=== PATIENT | male | born 1950 | race Two or more races ===

== ENCOUNTER 2019-08-20 16:39 | Inpatient (IN) | payer MEDICARE, OTHER ==
[~2019-08-20] VITALS: Ht 165.1 cm; Wt 84.8 kg
[2019-08-20] MEDS ORDERED: SIMETHICONE180 MG PO (16:50)
[2019-08-20] MEDS ORDERED: ZUPLENZ4 M1 ORAL (16:50)
[2019-08-20 17:06] VITALS: BP 121/68
[2019-08-20] MEDS ORDERED: Morphine Sulfate 4mg/ml Inj (IV USE ONLY) IVP ONE ×2 (17:45→22:15)
[2019-08-20 17:47] LABS: HEMATOCRIT 43.1 % (42.0-52.0); HEMOGLOBIN 14.1 G/DL (14.2-18.0); MEAN CORPUSCULAR VOLUME 92 FL (80-99); PLATELET COUNT 202 K/UL (150-450); RED CELL DISTRIBUTION WIDTH 12.6 % (11.6-14.8); WHITE BLOOD COUNT 13.2 K/UL (4.8-10.8)
[2019-08-20 17:48] LABS: APPEARANCE,URINE SLIGHTLY CLOUDY; BILIRUBIN, URINE 2+ (NEGATIVE); GLUCOSE, URINE (UA) NEGATIVE (NEGATIVE); KETONES,URINE 1+ (NEGATIVE); LEUKOCYTE ESTERASE ,URINE 1+ (NEGATIVE); NITRITE,URINE NEGATIVE (NEGATIVE); PH,URINE 5 (4.5-8.0); PROTEIN,URINE 2+ (NEGATIVE); UROBILINOGEN,URINE 4 MG/DL (0.0-1.0)
[2019-08-20 17:53] LABS: COLOR,URINE YELLOW
[2019-08-20 18:10] LABS: ANION GAP 11 mmol/L (5-15); BLOOD UREA NITROGEN 19 mg/dL (7-18); CALCIUM 8.4 MG/DL (8.5-10.1); CARBON DIOXIDE 25 MMOL/L (21-32); CHLORIDE 102 MMOL/L (98-107); CREATININE 1.1 MG/DL (0.55-1.30); POTASSIUM 3.7 MMOL/L (3.5-5.1); SODIUM 138 MMOL/L (136-145)
--- NOTE | 2019-08-20 18:22 | Diagnostic Imaging Report ---
EXAM: US Abdomen Complete CLINICAL HISTORY: PAIN TECHNIQUE: Real-time ultrasound of the abdomen with image documentation. COMPARISON: No relevant prior studies available. FINDINGS: Liver: Unremarkable. Gallbladder: Distended gallbladder. No definite shadowing cholelithiasis. Mildly prominent 4 mm gallbladder wall. Possible small pericholecystic fluid. Correlate clinically for cholecystitis. Common bile duct: CBD 6 mm. Pancreas: Pancreas obscured. Kidneys: No hydronephrosis. Spleen: Unremarkable. Aorta: Unremarkable as visualized. Inferior vena cava: Unremarkable as visualized. IMPRESSION: Distended gallbladder. No definite shadowing cholelithiasis. Mildly prominent 4 mm gallbladder wall. Possible small pericholecystic fluid. Correlate clinically for cholecystitis.
[2019-08-20 18:23] LABS: ALANINE AMINOTRANSFERASE 132 U/L (12-78); ALBUMIN 3.3 G/DL (3.4-5.0); ALBUMIN/GLOBULIN RATIO 0.9 (1.0-2.7); ALKALINE PHOSPHATASE 91 U/L (46-116); ASPARTATE AMINO TRANSFERASE 95 U/L (15-37); BILIRUBIN,TOTAL 2.3 MG/DL (0.2-1.0)
[2019-08-20 18:30] LABS: BILIRUBIN,DIRECT 1.1 MG/DL (0.0-0.3)
[2019-08-20] MEDS ORDERED: cefTRIAXone 1 GM in NS 55 ML IVPB ONE (18:30)
[2019-08-20 19:10] VITALS: BP 123/68
--- NOTE | 2019-08-20 19:29 | Emergency Room Report ---
History of Present Illness General Chief Complaint: Abdominal Pain Source: Patient (Jayla Horton) Present Illness HPI 69-year-old male presents to the emergency department complaining of 8 out of 10 severity right upper quadrant abdominal pain with associated nausea and vomiting x2 days. Patient reports that he had similar symptoms approximately a week ago and was evaluated by his primary care doctor who told him that he had gallstones. Patient denies fevers or chills. He denies blood in the vomit he denies diarrhea or constipation. Patient denies black tarry stools. Patient reports he has had no appetite. He reports that his primary care provider prescribed him some unknown medications that have not been helping. Pt. reports pain as constant in nature and exacerbated with palpation of the epigastric area or right upper quadrant of his abdomen. (Jayla Horton) Allergies: Coded Allergies: No Known Allergies (Unverified , 08/20/19) COVID-19 Screening Contact w/high risk pt: No Recent Travel to affected area: No Experienced COVID-19 symptoms?: No (Jayla Horton) Patient History Past Medical History: see triage record Past Surgical History: none Pertinent Family History: none Reviewed Nursing Documentation: PMH: Agreed; PSxH: Agreed (Jayla Horton) Nursing Documentation-PMH Past Medical History: No Stated History (Jayla Horton) Review of Systems All Other Systems: negative except mentioned in HPI (Jayla Horton) Physical Exam Vital Signs Date Time Temp Pulse Resp B/P (MAP) Pulse Ox O2 Delivery O2 Flow Rate FiO2 08/20/19 16:45 99.1 85 18 120/77 (91) 93 Room Air Sp02 EP Interpretation: reviewed, normal General Appearance: no apparent distress, alert, GCS 15, non-toxic Head: normocephalic, atraumatic Eyes: bilateral eye normal inspection, bilateral eye PERRL ENT: hearing grossly normal, normal voice Neck: full range of motion Respiratory: chest non-tender, lungs clear, normal breath sounds, speaking full sentences Cardiovascular #1: regular rate, rhythm Gastrointestinal: normal bowel sounds, soft, non-distended, no guarding, tenderness - TTP to t RUQ and epigastric area, abdomen is soft. Rectal: deferred Genitourinary: normal inspection, no CVA tenderness Musculoskeletal: back normal, normal range of motion, gait/station normal, non- tender Neurologic: alert, motor strength/tone normal, oriented x3, sensory intact, responsive, speech normal Psychiatric: judgement/insight normal Skin: normal color (Jayla Horton) Medical Decision Making PA Attestation Dr. Smith is my supervising Physician whom patient management has been discussed with. (Jayla Horton) Diagnostic Impression: Primary Impression: Cholecystitis Additional Impression: UTI (urinary tract infection) Qualified Codes: N30.01 - Acute cystitis with hematuria ER Course 69-year-old male presents to the emergency department complaining of 8 out of 10 severity right upper quadrant abdominal pain with associated nausea and vomiting x2 days. Patient reports that he had similar symptoms approximately a week ago and was evaluated by his primary care doctor who told him that he had gallstones. Patient denies fevers or chills. He denies blood in the vomit he denies diarrhea or constipation. Patient denies black tarry stools. Patient reports he has had no appetite. He reports that his primary care provider prescribed him some unknown medications that have not been helping. Pt. reports pain as constant in nature and exacerbated with palpation of the epigastric area or right upper quadrant of his abdomen. Ddx considered but are not limited to Diverticulitis, acute appy, diarrhea,UC, PUD, GE, pancreatitis, gallstone Vital signs: are WNL, pt. is afebrile H&PE are most consistent with possible gallstone vs. cholecystitis ORDERS: CBC: leukocytosis 13.2 -CMP: Elevated direct bilirubin of 1.1 and total bilirubin of 2.3 -lipase: WNL -UA: RBC's, blood and many bacteria with WBC's - c/w UTI -US Abdomen: correlate clinically with cholecystitis. ED INTERVENTIONS: -- 1000NS, -- zofran 4mg. - Rocephin IV -MOrphine 4mg IV DISPOSITION: at this time pt. will be admitted for cholecystitis Pt. signed out to attending physician awaiting admission. Labs Test 08/20/19 17:30 White Blood Count 13.2 K/UL (4.8-10.8) Red Blood Count 4.70 M/UL (4.70-6.10) Hemoglobin 14.1 G/DL (14.2-18.0) Hematocrit 43.1 % (42.0-52.0) Mean Corpuscular Volume 92 FL (80-99) Mean Corpuscular Hemoglobin 29.9 PG (27.0-31.0) Mean Corpuscular Hemoglobin Concent 32.7 G/DL (32.0-36.0) Red Cell Distribution Width 12.6 % (11.6-14.8) Platelet Count 202 K/UL (150-450) Mean Platelet Volume 7.2 FL (6.5-10.1) Neutrophils (%) (Auto) 88.0 % (45.0-75.0) Lymphocytes (%) (Auto) 8.0 % (20.0-45.0) Monocytes (%) (Auto) 4.0 % (1.0-10.0) Eosinophils (%) (Auto) % (0.0-3.0) Basophils (%) (Auto) % (0.0-2.0) Urine Color Yellow Urine Appearance Slightly cloudy Urine pH 5 (4.5-8.0) Urine Specific [place] 1.020 (1.005-1.035) Urine Protein 2+ (NEGATIVE) Urine Glucose (UA) Negative (NEGATIVE) Urine Ketones 1+ (NEGATIVE) Urine Blood 2+ (NEGATIVE) Urine Nitrite Negative (NEGATIVE) Urine Bilirubin 2+ (NEGATIVE) Urine Ictotest Negative (NEGATIVE) Urine Urobilinogen 4 MG/DL (0.0-1.0) Urine Leukocyte Esterase 1+ (NEGATIVE) Urine RBC 2-4 /HPF (0 - 0) Urine WBC 10-15 /HPF (0 - 0) Urine Squamous Epithelial Cells Few /LPF (NONE/OCC) Urine Amorphous Sediment Moderate /LPF (NONE) Urine Bacteria Many /HPF (NONE) Urine Mucus Few /LPF (NONE/OCC) Sodium Level 138 MMOL/L (136-145) Potassium Level 3.7 MMOL/L (3.5-5.1) Chloride Level 102 MMOL/L (98-107) Carbon Dioxide Level 25 MMOL/L (21-32) Anion Gap 11 mmol/L (5-15) Blood Urea Nitrogen 19 mg/dL (7-18) Creatinine 1.1 MG/DL (0.55-1.30) Estimat Glomerular Filtration Rate > 60 mL/min (>60) Glucose Level 142 MG/DL (74-106) Calcium Level 8.4 MG/DL (8.5-10.1) Total Bilirubin 2.3 MG/DL (0.2-1.0) Direct Bilirubin 1.1 MG/DL (0.0-0.3) Aspartate Amino Transf (AST/SGOT) 95 U/L (15-37) Alanine Aminotransferase (ALT/SGPT) 132 U/L (12-78) Alkaline Phosphatase 91 U/L (46-116) Total Protein 7.1 G/DL (6.4-8.2) Albumin 3.3 G/DL (3.4-5.0) Globulin 3.8 g/dL Albumin/Globulin Ratio 0.9 (1.0-2.7) Lipase 82 U/L (73-393) (Jayla Horton) ER Course Presented for increased right upper quadrant pain. Patient was noted to have previous history of gallstones on ultrasound. Ultrasound imaging read by radiology showed distended gallbladder without definite shadowing and prominent gallbladder wall approximately 4 mm thick with possible jourdan-cholecystolic fluid.Patient was admitted for further evaluation and treatment of cholecystitis. Labs Test 08/20/19 17:30 White Blood Count 13.2 K/UL (4.8-10.8) Red Blood Count 4.70 M/UL (4.70-6.10) Hemoglobin 14.1 G/DL (14.2-18.0) Hematocrit 43.1 % (42.0-52.0) Mean Corpuscular Volume 92 FL (80-99) Mean Corpuscular Hemoglobin 29.9 PG (27.0-31.0) Mean Corpuscular Hemoglobin Concent 32.7 G/DL (32.0-36.0) Red Cell Distribution Width 12.6 % (11.6-14.8) Platelet Count 202 K/UL (150-450) Mean Platelet Volume 7.2 FL (6.5-10.1) Neutrophils (%) (Auto) 88.0 % (45.0-75.0) Lymphocytes (%) (Auto) 8.0 % (20.0-45.0) Monocytes (%) (Auto) 4.0 % (1.0-10.0) Eosinophils (%) (Auto) % (0.0-3.0) Basophils (%) (Auto) % (0.0-2.0) Urine Color Yellow Urine Appearance Slightly cloudy Urine pH 5 (4.5-8.0) Urine Specific [place] 1.020 (1.005-1.035) Urine Protein 2+ (NEGATIVE) Urine Glucose (UA) Negative (NEGATIVE) Urine Ketones 1+ (NEGATIVE) Urine Blood 2+ (NEGATIVE) Urine Nitrite Negative (NEGATIVE) Urine Bilirubin 2+ (NEGATIVE) Urine Ictotest Negative (NEGATIVE) Urine Urobilinogen 4 MG/DL (0.0-1.0) Urine Leukocyte Esterase 1+ (NEGATIVE) Urine RBC 2-4 /HPF (0 - 0) Urine WBC 10-15 /HPF (0 - 0) Urine Squamous Epithelial Cells Few /LPF (NONE/OCC) Urine Amorphous Sediment Moderate /LPF (NONE) Urine Bacteria Many /HPF (NONE) Urine Mucus Few /LPF (NONE/OCC) Sodium Level 138 MMOL/L (136-145) Potassium Level 3.7 MMOL/L (3.5-5.1) Chloride Level 102 MMOL/L (98-107) Carbon Dioxide Level 25 MMOL/L (21-32) Anion Gap 11 mmol/L (5-15) Blood Urea Nitrogen 19 mg/dL (7-18) Creatinine 1.1 MG/DL (0.55-1.30) Estimat Glomerular Filtration Rate > 60 mL/min (>60) Glucose Level 142 MG/DL (74-106) Calcium Level 8.4 MG/DL (8.5-10.1) Total Bilirubin 2.3 MG/DL (0.2-1.0) Direct Bilirubin 1.1 MG/DL (0.0-0.3) Aspartate Amino Transf (AST/SGOT) 95 U/L (15-37) Alanine Aminotransferase (ALT/SGPT) 132 U/L (12-78) Alkaline Phosphatase 91 U/L (46-116) Total Protein 7.1 G/DL (6.4-8.2) Albumin 3.3 G/DL (3.4-5.0) Globulin 3.8 g/dL Albumin/Globulin Ratio 0.9 (1.0-2.7) Lipase 82 U/L (73-393) (Willis Smith MD) CT/MRI/US Diagnostic Results CT/MRI/US Diagnostic Results : Imaging Test Ordered: US ABDOMEN Impression " 4 mm thickening of the gallbladder wall as well as pericholecystic fluid-- correlate clinically for cholecystitis" . Per official radiology report- Please see report for specific details. (Jayla Horton) Last Vital Signs Date Time Temp Pulse Resp B/P (MAP) Pulse Ox O2 Delivery O2 Flow Rate FiO2 08/20/19 19:10 98.9 78 22 123/68 99 Room Air (Jayla Horton) Status: unchanged (Willis Smith MD) Disposition: ADMITTED INPATIENT Condition: Serious Referrals: NON PHYSICIAN (PCP) Jayla Horton Aug 20, 2019 19:29 Willis Smith MD Aug 20, 2019 20:01
[2019-08-20 20:30] LABS: INR 1.1 (0.9-1.1)
[2019-08-20 21:20] VITALS: BP 118/75
[2019-08-20] MEDS ORDERED: OMEPRAZOLE40 M1 ORAL (23:31)
[2019-08-20] MEDS ORDERED: LIPITOR80 MG ORAL (23:31)
[2019-08-20] MEDS ORDERED: MONTELUKAST SOD10 MG ORAL (23:31)
[2019-08-20] MEDS ORDERED: PROBIOTIC1 EAC5 PO (23:31)
[2019-08-21 00:10] VITALS: BP 129/71
[2019-08-21] MEDS ORDERED: Morphine Sulfate 2mg/ml Inj(IV/IM USE ONLY) IVP PRN (02:45)
[2019-08-21] MEDS ORDERED: Morphine Sulfate 4mg/ml Inj (IV USE ONLY) IVP PRN (02:45)
[2019-08-21 04:00] VITALS: BP 117/71
[2019-08-21] MEDS: Piperacillin/Tazobactam 3.375 GM in NS 110 ML IVPB SCH ×3 (05:28→22:46)
[2019-08-21 08:00] VITALS: BP 122/75
[2019-08-21] MEDS: Montelukast 10mg tablet ORAL SCH (08:50)
[2019-08-21] MEDS: Lactobacillus-GG tablet ORAL SCH (08:50)
[2019-08-21 10:26] LABS: HEMATOCRIT 41.3 % (42.0-52.0); HEMOGLOBIN 14.6 G/DL (14.2-18.0); MEAN CORPUSCULAR VOLUME 88 FL (80-99); PLATELET COUNT 181 K/UL (150-450); RED BLOOD COUNT 4.68 M/UL (4.70-6.10); RED CELL DISTRIBUTION WIDTH 12.2 % (11.6-14.8); WHITE BLOOD COUNT 14.3 K/UL (4.8-10.8)
[2019-08-21 11:56] LABS: ANION GAP 10 mmol/L (5-15); BLOOD UREA NITROGEN 17 mg/dL (7-18); CALCIUM 8.3 MG/DL (8.5-10.1); CARBON DIOXIDE 25 MMOL/L (21-32); CHLORIDE 106 MMOL/L (98-107); CREATININE 1.1 MG/DL (0.55-1.30); POTASSIUM 4.4 MMOL/L (3.5-5.1); SODIUM 141 MMOL/L (136-145)
[2019-08-21 12:00] VITALS: BP 122/72
--- NOTE | 2019-08-21 13:42 | Consultation ---
History of Present Illness General Date patient seen: Aug 21, 2019 Reason for Hospitalization: Abdominal Pain Present Illness HPI This is a very pleasant 69-year-old male presented to the emergency department at [facility] complaining of 8 out of 10 severity right upper quadrant abdominal pain with associated nausea and vomiting x2 days. Patient reports that he had similar symptoms approximately a week ago and was evaluated by his primary care doctor who told him that he had gallstones. Patient denies fevers or chills. He denies blood in the vomit he denies diarrhea or constipation. Patient denies black tarry stools. Patient reports he has had no appetite. He reports that his primary care provider prescribed him some unknown medications that have not been helping. Pt. reports pain as constant in nature and exacerbated with palpation of the epigastric area or right upper quadrant of his abdomen. Surgery called to evaluate and assist with care. patient seen, chart reviewed, patient examined. Allergies: Coded Allergies: No Known Allergies (Unverified , 08/20/19) COVID-19 Screening Contact w/high risk pt: No Recent Travel to affected area: No Experienced COVID-19 symptoms?: No Medication History Scheduled Atorvastatin (Lipitor), 10 MG ORAL BEDTIME, (Reported) Montelukast Sodium* (Montelukast Sodium*), 10 MG ORAL DAILY, (Reported) Omeprazole (Omeprazole), 40 MG ORAL DAILY, (Reported) Ondansetron (Zuplenz), 4 MG ORAL Q8HR, (Reported) Simethicone (Simethicone), 180 MG PO TID, (Reported) Miscellaneous Medications Lactobacillus Combo No.11 (Probiotic), 1 EACH PO, (Reported) Patient History Limited by: medical condition History Provided By: Patient, Medical Record, PMD Healthcare decision maker Resuscitation status Full Code Advanced Directive on File Past Medical/Surgical History Past Medical/Surgical History: (1) UTI (urinary tract infection) (2) Cholecystitis Review of Systems Review of Symptoms General ROS: no weight loss or fever Psychological ROS: no depression or mood changes, no memory loss Ophthalmic ROS: no visual changes or eye irritation ENT ROS: no nasal congestion, hearing loss, dizziness Allergy and Immunology ROS: no allergic symptoms or urticaria Hematological and Lymphatic ROS: no swollen glands, unusual bleeding or bruising Endocrine ROS: no polyuria, polydipsia, weight changes, temperature intolerance Respiratory ROS: no cough, shortness of breath, or wheezing Cardiovascular ROS: no chest pain or dyspnea on exertion Gastrointestinal ROS: abdominal pain, bright red blood in stool. Musculoskeletal ROS: no myalgias or arthralgias Neurological ROS: no TIA or stroke symptoms Dermatological ROS: no new or changing skin lesions, rashes or pruritis Physical Exam Physical Exam General appearance: alert, cooperative, no distress, appears stated age Head: Normocephalic, without obvious abnormality, atraumatic Eyes: conjunctivae/corneas clear. PERRL, EOM's intact. Fundi benign Throat: Lips, mucosa, and tongue normal. Teeth and gums normal Neck: supple, symmetrical, trachea midline, no adenopathy, thyroid: not enlarged, symmetric, no tenderness/mass/nodules, no carotid bruit and no JVD Lungs: clear to auscultation bilaterally Heart: regular rate and rhythm, S1, S2 normal, no murmur, click, rub or gallop Abdomen: soft, tender. Bowel sounds normal. No masses, no organomegaly Extremities: extremities normal, atraumatic, no cyanosis or edema Pulses: 2+ and symmetric Skin: Skin color, texture, turgor normal. No rashes or lesions Neurologic: Grossly normal Last 24 Hour Vital Signs Date Time Temp Pulse Resp B/P (MAP) Pulse Ox O2 Delivery O2 Flow Rate FiO2 08/21/19 11:15 99.7 08/21/19 08:00 99.7 99 18 122/75 (91) 94 08/21/19 04:00 99.0 90 19 117/71 (86) 94 08/21/19 00:14 Room Air 08/21/19 00:10 98.7 84 20 129/71 (90) 96 08/20/19 23:50 98.6 84 19 111/86 97 Room Air 08/20/19 22:50 98.6 08/20/19 21:20 98.9 75 19 118/75 99 Room Air 08/20/19 19:10 98.9 78 22 123/68 99 Room Air 08/20/19 18:19 99.1 08/20/19 17:20 78 18 Room Air 08/20/19 17:06 99.1 78 18 121/68 97 Room Air 08/20/19 16:45 99.1 85 18 120/77 (91) 93 Room Air Laboratory Tests Test 08/20/19 17:30 08/21/19 09:25 White Blood Count 13.2 K/UL (4.8-10.8) H 14.3 K/UL (4.8-10.8) H Red Blood Count 4.70 M/UL (4.70-6.10) 4.68 M/UL (4.70-6.10) L Hemoglobin 14.1 G/DL (14.2-18.0) L 14.6 G/DL (14.2-18.0) Hematocrit 43.1 % (42.0-52.0) 41.3 % (42.0-52.0) L Mean Corpuscular Volume 92 FL (80-99) 88 FL (80-99) Mean Corpuscular Hemoglobin 29.9 PG (27.0-31.0) 31.3 PG (27.0-31.0) H Mean Corpuscular Hemoglobin Concent 32.7 G/DL (32.0-36.0) 35.5 G/DL (32.0-36.0) Red Cell Distribution Width 12.6 % (11.6-14.8) 12.2 % (11.6-14.8) Platelet Count 202 K/UL (150-450) 181 K/UL (150-450) Mean Platelet Volume 7.2 FL (6.5-10.1) 5.5 FL (6.5-10.1) L Neutrophils (%) (Auto) 88.0 % (45.0-75.0) H % (45.0-75.0) Lymphocytes (%) (Auto) 8.0 % (20.0-45.0) L % (20.0-45.0) Monocytes (%) (Auto) 4.0 % (1.0-10.0) % (1.0-10.0) Eosinophils (%) (Auto) % (0.0-3.0) % (0.0-3.0) Basophils (%) (Auto) % (0.0-2.0) % (0.0-2.0) Prothrombin Time 11.3 SEC (9.30-11.50) Prothromb Time International Ratio 1.1 (0.9-1.1) Activated Partial Thromboplast Time 29 SEC (23-33) Urine Color Yellow Urine Appearance Slightly cloudy Urine pH 5 (4.5-8.0) Urine Specific [place] 1.020 (1.005-1.035) Urine Protein 2+ (NEGATIVE) H Urine Glucose (UA) Negative (NEGATIVE) Urine Ketones 1+ (NEGATIVE) H Urine Blood 2+ (NEGATIVE) H Urine Nitrite Negative (NEGATIVE) Urine Bilirubin 2+ (NEGATIVE) H Urine Ictotest Negative (NEGATIVE) Urine Urobilinogen 4 MG/DL (0.0-1.0) H Urine Leukocyte Esterase 1+ (NEGATIVE) H Urine RBC 2-4 /HPF (0 - 0) H Urine WBC 10-15 /HPF (0 - 0) H Urine Squamous Epithelial Cells Few /LPF (NONE/OCC) Urine Amorphous Sediment Moderate /LPF (NONE) H Urine Bacteria Many /HPF (NONE) H Urine Mucus Few /LPF (NONE/OCC) H Sodium Level 138 MMOL/L (136-145) 141 MMOL/L (136-145) Potassium Level 3.7 MMOL/L (3.5-5.1) 4.4 MMOL/L (3.5-5.1) Chloride Level 102 MMOL/L (98-107) 106 MMOL/L (98-107) Carbon Dioxide Level 25 MMOL/L (21-32) 25 MMOL/L (21-32) Anion Gap 11 mmol/L (5-15) 10 mmol/L (5-15) Blood Urea Nitrogen 19 mg/dL (7-18) H 17 mg/dL (7-18) Creatinine 1.1 MG/DL (0.55-1.30) 1.1 MG/DL (0.55-1.30) Estimat Glomerular Filtration Rate > 60 mL/min (>60) > 60 mL/min (>60) Glucose Level 142 MG/DL (74-106) H 107 MG/DL (74-106) H Calcium Level 8.4 MG/DL (8.5-10.1) L 8.3 MG/DL (8.5-10.1) L Total Bilirubin 2.3 MG/DL (0.2-1.0) H Direct Bilirubin 1.1 MG/DL (0.0-0.3) H Aspartate Amino Transf (AST/SGOT) 95 U/L (15-37) H Alanine Aminotransferase (ALT/SGPT) 132 U/L (12-78) H Alkaline Phosphatase 91 U/L (46-116) Total Protein 7.1 G/DL (6.4-8.2) Albumin 3.3 G/DL (3.4-5.0) L Globulin 3.8 g/dL Albumin/Globulin Ratio 0.9 (1.0-2.7) L Lipase 82 U/L (73-393) Differential Total Cells Counted 100 Neutrophils % (Manual) 89 % (45-75) H Lymphocytes % (Manual) 6 % (20-45) L Monocytes % (Manual) 5 % (1-10) Eosinophils % (Manual) 0 % (0-3) Basophils % (Manual) 0 % (0-2) Band Neutrophils 0 % (0-8) Platelet Estimate Adequate Platelet Morphology Normal Red Blood Cell Morphology Normal Microbiology Date/Time Source Procedure Growth Status 08/20/19 17:30 Urine,Clean Catch Urine Culture - Preliminary NO GROWTH Resulted Height (Feet): 5 Height (Inches): 5.00 Weight (Pounds): 184 Medications Current Medications Medications (Trade) Dose Ordered Sig/Belen Route PRN Reason Start Time Stop Time Status Last Admin Dose Admin Acetaminophen (Tylenol) 650 mg Q4H PRN ORAL Mild Pain (Pain Scale 1-3) 08/21/19 02:45 09/20/19 02:44 08/21/19 10:45 Al Hydroxide/Mg Hydroxide (Mylanta) 30 ml Q4H PRN ORAL Indigestion/heartburn 08/21/19 02:45 09/20/19 02:44 Atorvastatin Calcium (Lipitor) 10 mg BEDTIME ORAL 08/21/19 21:00 11/19/19 20:59 Lactobacillus Acidophilus (Culturelle) 1 tab DAILY ORAL 08/21/19 09:00 09/20/19 08:59 08/21/19 08:50 Montelukast Sodium (Singulair) 10 mg DAILY ORAL 08/21/19 09:00 11/19/19 08:59 08/21/19 08:50 Morphine Sulfate (Morphine Sulfate) 2 mg Q3H PRN IVP For Pain 08/21/19 05:45 08/28/19 02:44 Morphine Sulfate (Morphine Sulfate) 4 mg Q3H PRN IVP Severe Pain (Pain Scale 7-10) 08/21/19 02:45 08/28/19 02:44 Ondansetron HCl (Zofran) 4 mg Q6H PRN IVP Nausea & Vomiting 08/21/19 02:45 09/20/19 02:44 Pantoprazole (Protonix) 40 mg DAILY ORAL 08/21/19 09:00 09/20/19 08:59 08/21/19 08:50 Piperacillin Sod/ Tazobactam Sod 3.375 gm/Sodium Chloride 110 ml @ 27.5 mls/hr Q8H IVPB 08/21/19 06:00 08/28/19 05:59 08/21/19 05:28 Simethicone (Mylicon) 160 mg TID PO 08/21/19 13:00 11/19/19 12:59 Sodium Chloride 1,000 ml @ 100 mls/hr Q10H IV 08/21/19 02:45 09/20/19 02:44 08/21/19 03:06 Assessment/Plan Problem List: (1) Cholecystitis Assessment & Plan: Case discussed with GI MRCP reviewed with radiologist cbd stone stable afebrile, HD Stable labs noted npo iv fluids iv abx AM labs will consider ERCP then cholecystectomy thank you will follow with recs Liver: Unremarkable. Gallbladder: Distended gallbladder. No definite shadowing cholelithiasis. Mildly prominent 4 mm gallbladder wall. Possible small pericholecystic fluid. Correlate clinically for cholecystitis. Common bile duct: CBD 6 mm. Pancreas: Pancreas obscured. Kidneys: No hydronephrosis. Spleen: Unremarkable. Aorta: Unremarkable as visualized. Inferior vena cava: Unremarkable as visualized. IMPRESSION: Distended gallbladder. No definite shadowing cholelithiasis. Mildly prominent 4 mm gallbladder wall. Possible small pericholecystic fluid. Correlate clinically for cholecystitis. the gallbladder wall is somewhat edematous and the gallbladder is distended. The fat saturated images suggests some infiltration of the pericholecystic fat as well as a small amount of fluid adjacent to the tip of the liver. No filling defects to suggest gallstones are evident in the gallbladder lumen. However, there is a possible 8 mm filling defect in the gallbladder neck. In addition, there is a 7 mm diameter filling defect in the downstream common bile duct. The common bile duct measures 7 mm in diameter. There is no intrahepatic biliary ductal dilatation. The liver, pancreas, spleen, adrenals, kidneys are unremarkable. The prostate is enlarged. There are trace bilateral pleural effusions. Impression: Positive for choledocholithiasis. This results in mild biliary ductal dilatation. Suspect gallbladder neck stone. Mild gallbladder wall edema in some infiltration of the pericholecystic fat raises possibility of acute cholecystitis. Consider hepatobiliary nuclear scan for confirmation if there is high clinical suspicion. Evidence of trace free intraperitoneal fluid Trace bilateral pleural effusions ICD Codes: K81.9 - Cholecystitis, unspecified SNOMED: [id number] Lopez Zuniga Aug 21, 2019 13:42
[2019-08-21] MEDS: SIMETHICONE 80 MG PO SCH ×2 (14:50→17:11)
--- NOTE | 2019-08-21 15:30 | History and Physical Report ---
DATE OF ADMISSION: 08/20/2019 REASON FOR ADMISSION: Cholecystitis. HISTORY OF PRESENT ILLNESS: This is a 69-year-old male, presents with significant right upper quadrant pain, associated nausea, vomiting. The patient has had prior symptoms recently and history of gallstones. No fevers or chills. The patient denies any hematemesis, hematochezia. The patient is evaluated and noted to have probable cholecystitis and Surgery was called. PAST MEDICAL HISTORY: Notable for gallstones. MEDICATIONS: Reviewed. ALLERGIES: Reviewed. REVIEW OF SYSTEMS: Otherwise negative with the exception of the above. PHYSICAL EXAMINATION: GENERAL: A well-developed male, overall comfortable, in mild pain overall. VITAL SIGNS: Reviewed and otherwise stable. HEENT: Negative. NECK: Supple. LUNGS: Fairly clear. CARDIAC: S1, S2. Regular rate and rhythm. ABDOMEN: Right upper quadrant tenderness. EXTREMITIES: No cyanosis, clubbing, or edema. NEUROLOGIC: Grossly nonfocal. LABORATORY DATA: Reviewed. White count 13.2. Liver enzymes somewhat elevated, albumin 3.3, BUN 19. IMPRESSION: Transaminitis, cholecystitis, leukocytosis, distended gallbladder, gallstones. RECOMMENDATIONS: Supportive care. Empiric antibiotics. Pain control. NPO for now. Surgical followup and possible cholecystectomy. Monitor labs. Monitor cultures and discharge once stable. Aaron Cordova M.D. DR: MILAN JOB#: [id number] CC:
[2019-08-21] MEDS ORDERED: NS 500ML ONE (15:40)
[2019-08-21] MEDS ORDERED: Tubing IV Secondary IV ONE (15:40)
[2019-08-21 16:00] VITALS: BP 126/71
--- NOTE | 2019-08-21 17:05 | Diagnostic Imaging Report ---
Indication: Right upper quadrant abdominal pain Technique: Coronal and axial single shot fast spin-echo breath-hold, axial T2 FRFSE, 2-D thick slab MRCP, AXIAL 2-D FIESTA fat saturated, axial 3-D dual echo breath-hold, water weighted axial LAVA FLEX, revealed 3-D MRCP images were obtained of the abdomen. MIP reconstructions were generated of the bile ducts Comparison: Abdominal ultrasound 08/20/2019 Findings: As reported on prior sonogram, the gallbladder wall is somewhat edematous and the gallbladder is distended. The fat saturated images suggests some infiltration of the pericholecystic fat as well as a small amount of fluid adjacent to the tip of the liver. No filling defects to suggest gallstones are evident in the gallbladder lumen. However, there is a possible 8 mm filling defect in the gallbladder neck. In addition, there is a 7 mm diameter filling defect in the downstream common bile duct. The common bile duct measures 7 mm in diameter. There is no intrahepatic biliary ductal dilatation. The liver, pancreas, spleen, adrenals, kidneys are unremarkable. The prostate is enlarged. There are trace bilateral pleural effusions. Impression: Positive for choledocholithiasis. This results in mild biliary ductal dilatation. Suspect gallbladder neck stone. Mild gallbladder wall edema in some infiltration of the pericholecystic fat raises possibility of acute cholecystitis. Consider hepatobiliary nuclear scan for confirmation if there is high clinical suspicion. Evidence of trace free intraperitoneal fluid Trace bilateral pleural effusions Enlarged prostate
[2019-08-21 20:00] VITALS: BP 118/72
[2019-08-21] MEDS: Morphine Sulfate 2mg/ml Inj(IV/IM USE ONLY) IVP PRN (20:32)
[2019-08-22] VITALS: BP 121/69
[2019-08-22 04:00] VITALS: BP 126/73
[2019-08-22] MEDS: Piperacillin/Tazobactam 3.375 GM in NS 110 ML IVPB SCH ×3 (05:26→21:20)
[2019-08-22 06:27] LABS: BASOPHILS % (AUTO) 0.3 % (0.0-2.0); EOSINOPHILS % (AUTO) 0.1 % (0.0-3.0); HEMATOCRIT 41.9 % (42.0-52.0); HEMOGLOBIN 14.3 G/DL (14.2-18.0); LYMPHOCYTES % (AUTO) 10.2 % (20.0-45.0); MEAN CORPUSCULAR VOLUME 89 FL (80-99); MONOCYTES % (AUTO) 5.8 % (1.0-10.0); NEUTROPHILS % (AUTO) 83.6 % (45.0-75.0); PLATELET COUNT 204 K/UL (150-450); RED BLOOD COUNT 4.69 M/UL (4.70-6.10); RED CELL DISTRIBUTION WIDTH 12.2 % (11.6-14.8); WHITE BLOOD COUNT 16.1 K/UL (4.8-10.8)
[2019-08-22 07:10] LABS: ALANINE AMINOTRANSFERASE 63 U/L (12-78); ALBUMIN 2.7 G/DL (3.4-5.0); ALBUMIN/GLOBULIN RATIO 0.6 (1.0-2.7); ALKALINE PHOSPHATASE 104 U/L (46-116); ANION GAP 9 mmol/L (5-15); ASPARTATE AMINO TRANSFERASE 31 U/L (15-37); BILIRUBIN,TOTAL 1.3 MG/DL (0.2-1.0); BLOOD UREA NITROGEN 20 mg/dL (7-18); CALCIUM 8.5 MG/DL (8.5-10.1); CARBON DIOXIDE 26 MMOL/L (21-32); CHLORIDE 105 MMOL/L (98-107); POTASSIUM 3.4 MMOL/L (3.5-5.1); SODIUM 140 MMOL/L (136-145)
[2019-08-22 07:14] LABS: BILIRUBIN,DIRECT 0.5 MG/DL (0.0-0.3)
[2019-08-22 07:43] LABS: AMYLASE 44 U/L (25-115)
[2019-08-22 08:00] VITALS: BP 115/68
[2019-08-22] MEDS: Lactobacillus-GG tablet ORAL SCH (08:51)
[2019-08-22] MEDS: Montelukast 10mg tablet ORAL SCH (08:52)
[2019-08-22] MEDS: SIMETHICONE 80 MG PO SCH ×3 (08:54→17:21)
--- NOTE | 2019-08-22 11:43 | Diagnostic Imaging Report ---
EXAM: XR Chest, 1 View CLINICAL HISTORY: F/U TECHNIQUE: Frontal view of the chest. COMPARISON: None FINDINGS: Hardware: None. Lungs/pleura: Low lung volumes. Right lower lung opacities may represent atelectasis. No pleural effusion or pneumothorax. Heart/mediastinum: Mild enlargement of the cardiac silhouette which may be accentuated by low lung volumes. Atherosclerotic calcifications in the aorta. Soft tissues: Unremarkable. Bones: No acute fracture. Upper abdomen: Normal. Other: Nonspecific linear structure projected over the supraclavicular region and upper lung on the left.. IMPRESSION: Low lung volumes. Right lower lung opacities may represent atelectasis.
[2019-08-22 12:00] VITALS: BP 119/68
--- NOTE | 2019-08-22 13:11 | GI Initial Consult Note ---
History of Present Illness General Date patient seen: Aug 22, 2019 Time patient seen: 13:10 Reason for Hospitalization: Abdominal Pain Present Illness Home Meds Reported Medications Lactobacillus Combo No.11 (PROBIOTIC) 1 Each Cap.sprink, 1 EACH PO for supplement, CAP 08/20/19 Omeprazole (OMEPRAZOLE) 40 Mg Capsule.dr, 40 MG ORAL DAILY for acid, CAP 08/20/19 Atorvastatin (Lipitor) 80 Mg Tablet, 10 MG ORAL BEDTIME for cholestrol, #30 TAB 0 Refills 08/20/19 Montelukast Sodium* (MONTELUKAST SODIUM*) 10 Mg Tablet, 10 MG ORAL DAILY for asthma, TAB 08/20/19 Ondansetron (ZUPLENZ) 4 Mg Film, 4 MG ORAL Q8HR for N/V, FILM 08/20/19 Simethicone (SIMETHICONE) 180 Mg Capsule, 180 MG PO TID for PAIN, CAP 08/20/19 Allergies: Coded Allergies: No Known Allergies (Unverified , 08/20/19) Physical Exam Vital Signs Date Time Temp Pulse Resp B/P (MAP) Pulse Ox O2 Delivery O2 Flow Rate FiO2 08/20/19 16:45 99.1 85 18 120/77 (91) 93 Room Air Labs Laboratory Tests Test 08/22/19 05:25 White Blood Count 16.1 K/UL (4.8-10.8) H Red Blood Count 4.69 M/UL (4.70-6.10) L Hemoglobin 14.3 G/DL (14.2-18.0) Hematocrit 41.9 % (42.0-52.0) L Mean Corpuscular Volume 89 FL (80-99) Mean Corpuscular Hemoglobin 30.4 PG (27.0-31.0) Mean Corpuscular Hemoglobin Concent 34.1 G/DL (32.0-36.0) Red Cell Distribution Width 12.2 % (11.6-14.8) Platelet Count 204 K/UL (150-450) Mean Platelet Volume 5.7 FL (6.5-10.1) L Neutrophils (%) (Auto) 83.6 % (45.0-75.0) H Lymphocytes (%) (Auto) 10.2 % (20.0-45.0) L Monocytes (%) (Auto) 5.8 % (1.0-10.0) Eosinophils (%) (Auto) 0.1 % (0.0-3.0) Basophils (%) (Auto) 0.3 % (0.0-2.0) Prothrombin Time 10.4 SEC (9.30-11.50) Prothromb Time International Ratio 1.0 (0.9-1.1) Activated Partial Thromboplast Time 30 SEC (23-33) Sodium Level 140 MMOL/L (136-145) Potassium Level 3.4 MMOL/L (3.5-5.1) L Chloride Level 105 MMOL/L (98-107) Carbon Dioxide Level 26 MMOL/L (21-32) Anion Gap 9 mmol/L (5-15) Blood Urea Nitrogen 20 mg/dL (7-18) H Creatinine 1.0 MG/DL (0.55-1.30) Estimat Glomerular Filtration Rate > 60 mL/min (>60) Glucose Level 92 MG/DL (74-106) Calcium Level 8.5 MG/DL (8.5-10.1) Total Bilirubin 1.3 MG/DL (0.2-1.0) H Direct Bilirubin 0.5 MG/DL (0.0-0.3) H Aspartate Amino Transf (AST/SGOT) 31 U/L (15-37) Alanine Aminotransferase (ALT/SGPT) 63 U/L (12-78) Alkaline Phosphatase 104 U/L (46-116) Total Protein 6.9 G/DL (6.4-8.2) Albumin 2.7 G/DL (3.4-5.0) L Globulin 4.2 g/dL Albumin/Globulin Ratio 0.6 (1.0-2.7) L Amylase Level 44 U/L (25-115) Lipase 164 U/L (73-393) Current Medications Current Medications Medications (Trade) Dose Ordered Sig/Belne Route PRN Reason Start Time Stop Time Status Last Admin Dose Admin Acetaminophen (Tylenol) 650 mg Q4H PRN ORAL Mild Pain (Pain Scale 1-3) 08/21/19 02:45 09/20/19 02:44 08/22/19 05:32 Al Hydroxide/Mg Hydroxide (Mylanta) 30 ml Q4H PRN ORAL Indigestion/heartburn 08/21/19 02:45 09/20/19 02:44 Atorvastatin Calcium (Lipitor) 10 mg BEDTIME ORAL 08/21/19 21:00 11/19/19 20:59 08/21/19 20:31 Lactobacillus Acidophilus (Culturelle) 1 tab DAILY ORAL 08/21/19 09:00 09/20/19 08:59 08/22/19 08:51 Montelukast Sodium (Singulair) 10 mg DAILY ORAL 08/21/19 09:00 11/19/19 08:59 08/22/19 08:52 Morphine Sulfate (Morphine Sulfate) 2 mg Q3H PRN IVP For Pain 08/21/19 05:45 08/28/19 02:44 08/21/19 20:32 Morphine Sulfate (Morphine Sulfate) 4 mg Q3H PRN IVP Severe Pain (Pain Scale 7-10) 08/21/19 02:45 08/28/19 02:44 08/22/19 07:14 Ondansetron HCl (Zofran) 4 mg Q6H PRN IVP Nausea & Vomiting 08/21/19 02:45 09/20/19 02:44 Pantoprazole (Protonix) 40 mg DAILY ORAL 08/21/19 09:00 09/20/19 08:59 08/22/19 08:51 Piperacillin Sod/ Tazobactam Sod 3.375 gm/Sodium Chloride 110 ml @ 27.5 mls/hr Q8H IVPB 08/21/19 06:00 08/28/19 05:59 08/22/19 12:45 Simethicone (Mylicon) 160 mg TID PO 08/21/19 13:00 11/19/19 12:59 08/22/19 12:45 Sodium Chloride 1,000 ml @ 100 mls/hr Q10H IV 08/21/19 02:45 09/20/19 02:44 08/22/19 08:54 Antonio Priest BI ARCHITECT Aug 22, 2019 13:11
--- NOTE | 2019-08-22 13:19 | GI Initial Consult Note ---
History of Present Illness General Date patient seen: Aug 22, 2019 Time patient seen: 13:11 Reason for Hospitalization: Abdominal Pain Referring physician: SELMA Reason for Consultation: ABDOMINAL PAIN Present Illness HPI 69-year-old male presents to the emergency department complaining of 8 out of 10 severity right upper quadrant abdominal pain with associated nausea and vomiting x2 days. Patient reports that he had similar symptoms approximately a week ago and was evaluated by his primary care doctor who told him that he had gallstones. Patient denies fevers or chills. He denies blood in the vomit he denies diarrhea or constipation. Patient denies black tarry stools. Patient reports he has had no appetite. He reports that his primary care provider prescribed him some unknown medications that have not been helping. Pt. reports pain as constant in nature and exacerbated with palpation of the epigastric area or right upper quadrant of his abdomen. GI consulted for abdominal pain. MRCP was performed noted that the gallbladder wall is somewhat edematous and had distention. It was noted that there is a 8 mm filling defect in the gallbladder neck. In addition, there was a 7 mm diameter filling defect in the downstream common bile duct. There is no intrahepatic biliary ductal dilation. Liver pancreas spleen the liver, pancreas , spleen, adrenals, kidneys were unremarkable. There were trace bilateral pleural effusions. MRI positive for choledocholithiasis which resulted in mild biliary ductal dilation. Labs reviewed; WBC 16.1, total bilirubin 1.3, no transaminitis, no elevated alkaline phosphatase, lipase within normal limits. The patient has no history of endoscopic. Patient has complaint of right upper quadrant pain exacerbated by movement. Home Meds Reported Medications Lactobacillus Combo No.11 (PROBIOTIC) 1 Each Cap.sprink, 1 EACH PO for supplement, CAP 08/20/19 Omeprazole (OMEPRAZOLE) 40 Mg Capsule.dr, 40 MG ORAL DAILY for acid, CAP 08/20/19 Atorvastatin (Lipitor) 80 Mg Tablet, 10 MG ORAL BEDTIME for cholestrol, #30 TAB 0 Refills 08/20/19 Montelukast Sodium* (MONTELUKAST SODIUM*) 10 Mg Tablet, 10 MG ORAL DAILY for asthma, TAB 08/20/19 Ondansetron (ZUPLENZ) 4 Mg Film, 4 MG ORAL Q8HR for N/V, FILM 08/20/19 Simethicone (SIMETHICONE) 180 Mg Capsule, 180 MG PO TID for PAIN, CAP 08/20/19 Med list reviewed/reconciled: Yes Allergies: Coded Allergies: No Known Allergies (Unverified , 08/20/19) Patient History History Provided By: Patient, Medical Record PMH Narrative Past Medical History: see triage record Past Surgical History: none Pertinent Family History: none Reviewed Nursing Documentation: PMH: Agreed; PSxH: Agreed Social History: Denies: smoking, alcohol use, drug use, other Review of Systems All Other Systems: negative except mentioned in HPI Physical Exam Vital Signs Date Time Temp Pulse Resp B/P (MAP) Pulse Ox O2 Delivery O2 Flow Rate FiO2 08/20/19 16:45 99.1 85 18 120/77 (91) 93 Room Air Sp02 EP Interpretation: reviewed, normal Labs Laboratory Tests Test 08/22/19 05:25 White Blood Count 16.1 K/UL (4.8-10.8) H Red Blood Count 4.69 M/UL (4.70-6.10) L Hemoglobin 14.3 G/DL (14.2-18.0) Hematocrit 41.9 % (42.0-52.0) L Mean Corpuscular Volume 89 FL (80-99) Mean Corpuscular Hemoglobin 30.4 PG (27.0-31.0) Mean Corpuscular Hemoglobin Concent 34.1 G/DL (32.0-36.0) Red Cell Distribution Width 12.2 % (11.6-14.8) Platelet Count 204 K/UL (150-450) Mean Platelet Volume 5.7 FL (6.5-10.1) L Neutrophils (%) (Auto) 83.6 % (45.0-75.0) H Lymphocytes (%) (Auto) 10.2 % (20.0-45.0) L Monocytes (%) (Auto) 5.8 % (1.0-10.0) Eosinophils (%) (Auto) 0.1 % (0.0-3.0) Basophils (%) (Auto) 0.3 % (0.0-2.0) Prothrombin Time 10.4 SEC (9.30-11.50) Prothromb Time International Ratio 1.0 (0.9-1.1) Activated Partial Thromboplast Time 30 SEC (23-33) Sodium Level 140 MMOL/L (136-145) Potassium Level 3.4 MMOL/L (3.5-5.1) L Chloride Level 105 MMOL/L (98-107) Carbon Dioxide Level 26 MMOL/L (21-32) Anion Gap 9 mmol/L (5-15) Blood Urea Nitrogen 20 mg/dL (7-18) H Creatinine 1.0 MG/DL (0.55-1.30) Estimat Glomerular Filtration Rate > 60 mL/min (>60) Glucose Level 92 MG/DL (74-106) Calcium Level 8.5 MG/DL (8.5-10.1) Total Bilirubin 1.3 MG/DL (0.2-1.0) H Direct Bilirubin 0.5 MG/DL (0.0-0.3) H Aspartate Amino Transf (AST/SGOT) 31 U/L (15-37) Alanine Aminotransferase (ALT/SGPT) 63 U/L (12-78) Alkaline Phosphatase 104 U/L (46-116) Total Protein 6.9 G/DL (6.4-8.2) Albumin 2.7 G/DL (3.4-5.0) L Globulin 4.2 g/dL Albumin/Globulin Ratio 0.6 (1.0-2.7) L Amylase Level 44 U/L (25-115) Lipase 164 U/L (73-393) General Appearance: well appearing, no apparent distress, alert Head: normocephalic EENT: PERRL/EOMI, normal ENT inspection Neck: supple Respiratory: normal breath sounds, no respiratory distress Cardiovascular: normal rate Gastrointestinal: normal inspection, non tender, soft, normal bowel sounds, non -distended Rectal: deferred Genitourinary: deferred Musculoskeletal: normal inspection, back normal Neurologic: alert, oriented x3, responsive, normal inspection Psychiatric: normal inspection, judgement/insight normal, memory normal Skin: normal inspection, normal color, no rash, warm/dry, palpation normal, well hydrated Lymphatic: normal inspection, no adenopathy Current Medications Current Medications Medications (Trade) Dose Ordered Sig/Belen Route PRN Reason Start Time Stop Time Status Last Admin Dose Admin Acetaminophen (Tylenol) 650 mg Q4H PRN ORAL Mild Pain (Pain Scale 1-3) 08/21/19 02:45 09/20/19 02:44 08/22/19 05:32 Al Hydroxide/Mg Hydroxide (Mylanta) 30 ml Q4H PRN ORAL Indigestion/heartburn 08/21/19 02:45 09/20/19 02:44 Atorvastatin Calcium (Lipitor) 10 mg BEDTIME ORAL 08/21/19 21:00 11/19/19 20:59 08/21/19 20:31 Lactobacillus Acidophilus (Culturelle) 1 tab DAILY ORAL 08/21/19 09:00 09/20/19 08:59 08/22/19 08:51 Montelukast Sodium (Singulair) 10 mg DAILY ORAL 08/21/19 09:00 11/19/19 08:59 08/22/19 08:52 Morphine Sulfate (Morphine Sulfate) 2 mg Q3H PRN IVP For Pain 08/21/19 05:45 08/28/19 02:44 08/21/19 20:32 Morphine Sulfate (Morphine Sulfate) 4 mg Q3H PRN IVP Severe Pain (Pain Scale 7-10) 08/21/19 02:45 08/28/19 02:44 08/22/19 07:14 Ondansetron HCl (Zofran) 4 mg Q6H PRN IVP Nausea & Vomiting 08/21/19 02:45 09/20/19 02:44 Pantoprazole (Protonix) 40 mg DAILY ORAL 08/21/19 09:00 09/20/19 08:59 08/22/19 08:51 Piperacillin Sod/ Tazobactam Sod 3.375 gm/Sodium Chloride 110 ml @ 27.5 mls/hr Q8H IVPB 08/21/19 06:00 08/28/19 05:59 08/22/19 12:45 Simethicone (Mylicon) 160 mg TID PO 08/21/19 13:00 11/19/19 12:59 08/22/19 12:45 Sodium Chloride 1,000 ml @ 100 mls/hr Q10H IV 08/21/19 02:45 09/20/19 02:44 08/22/19 08:54 GI: Plan Problems: (1) Choledocholithiasis (2) Cholecystitis Plan Right upper quadrant abdominal pain most likely secondary to choledocholithiasis were versus cholecystitis. Noted on MRCP that there is a 7 mm filling defect in the common bile duct. Abdominal pain most likely due to biliary obstruction, less likely due to hepatocellular disease. - Plan for ERCP this Saturday. -Maintain n.p.o. plus IV fluids -pain mgmt -ppi -We will follow with additional recommendations post procedure Discussed with Dr. Lugo. Thank you for this patient referral, we will follow. The patient was seen and examined at bedside and all new and available data was reviewed in the patients chart. I agree with the above findings, impression and plan. (Patient seen earlier today. Signature stamp does not reflect patient encounter time.). - MD Zayda DossBanner Thunderbird Medical CenterVivian ROLL TABLE OPERATOR Aug 22, 2019 13:19
[2019-08-22 16:00] VITALS: BP 119/73
--- NOTE | 2019-08-22 17:12 | General Progress Note ---
Assessment/Plan Assessment/Plan: cholecystitis gallstones abdominal pain PLAN NPO await ERCP possible surgery iv hydration impression, plan, and exam edited and reviewed in detail care discussed with RN Subjective Allergies: Coded Allergies: No Known Allergies (Unverified , 08/20/19) Subjective care noted wants gallbladder out Objective Last 24 Hour Vital Signs Date Time Temp Pulse Resp B/P (MAP) Pulse Ox O2 Delivery O2 Flow Rate FiO2 08/22/19 16:00 98.6 70 21 119/73 (88) 95 08/22/19 12:00 100.5 70 21 119/68 (85) 08/22/19 08:00 98.8 70 20 115/68 (84) 98 08/22/19 07:44 98.1 08/22/19 07:10 Room Air 08/22/19 06:02 98.1 08/22/19 04:00 98.1 71 18 126/73 (90) 96 08/22/19 00:00 98.9 88 18 121/69 (86) 96 08/21/19 21:02 101.2 08/21/19 21:00 Room Air 08/21/19 20:00 101.2 82 18 118/72 (87) 96 Intake and Output 08/21/19 08/22/19 19:00 07:00 Intake Total 200 ml Output Total 1250 ml Balance -1050 ml Intake Oral 200 ml Output Urine Total 1250 ml # Voids 5 Laboratory Tests 08/22/19 05:25: White Blood Count 16.1H, Red Blood Count 4.69L, Hemoglobin 14.3, Hematocrit 41.9L, Mean Corpuscular Volume 89, Mean Corpuscular Hemoglobin 30.4, Mean Corpuscular Hemoglobin Concent 34.1, Red Cell Distribution Width 12.2, Platelet Count 204, Mean Platelet Volume 5.7L, Neutrophils (%) (Auto) 83.6H, Lymphocytes (%) (Auto) 10.2L, Monocytes (%) (Auto) 5.8, Eosinophils (%) (Auto) 0.1, Basophils (%) (Auto) 0.3, Prothrombin Time 10.4, Prothromb Time International Ratio 1.0, Activated Partial Thromboplast Time 30, Sodium Level 140, Potassium Level 3.4L, Chloride Level 105, Carbon Dioxide Level 26, Anion Gap 9, Blood Urea Nitrogen 20H, Creatinine 1.0, Estimat Glomerular Filtration Rate > 60, Glucose Level 92, Calcium Level 8.5, Total Bilirubin 1.3H, Direct Bilirubin 0.5H , Aspartate Amino Transf (AST/SGOT) 31, Alanine Aminotransferase (ALT/SGPT) 63, Alkaline Phosphatase 104, Total Protein 6.9, Albumin 2.7L, Globulin 4.2, Albumin /Globulin Ratio 0.6L, Amylase Level 44, Lipase 164 Height (Feet): 5 Height (Inches): 5.00 Weight (Pounds): 184 Objective WDWN NAD clear breath sounds bilaterally without rhonchi or wheeze [id number] without MRG NABS tender RUQ no CCE nonfocal Aaron Cordova MD Aug 22, 2019 17:12
[2019-08-22] MEDS: Morphine Sulfate 2mg/ml Inj(IV/IM USE ONLY) IVP PRN (17:29)
--- NOTE | 2019-08-22 19:39 | Surgery Progress Note ---
Surgery Progress Note Subjective Additional Comments pending ERCP then lap liban doing well otherwise still with pain RUQ labs noted wbc worse discussed with GI Objective Last 24 Hour Vital Signs Date Time Temp Pulse Resp B/P (MAP) Pulse Ox O2 Delivery O2 Flow Rate FiO2 08/22/19 16:00 98.6 70 21 119/73 (88) 95 08/22/19 12:00 100.5 70 21 119/68 (85) 08/22/19 08:00 98.8 70 20 115/68 (84) 98 08/22/19 07:44 98.1 08/22/19 07:10 Room Air 08/22/19 06:02 98.1 08/22/19 04:00 98.1 71 18 126/73 (90) 96 08/22/19 00:00 98.9 88 18 121/69 (86) 96 08/21/19 21:02 101.2 08/21/19 21:00 Room Air 08/21/19 20:00 101.2 82 18 118/72 (87) 96 I&O Intake and Output 08/21/19 08/22/19 19:00 07:00 Intake Total 200 ml Output Total 1250 ml Balance -1050 ml Intake Oral 200 ml Output Urine Total 1250 ml # Voids 5 Cardiovascular: RSR Respiratory: clear Abdomen: soft, tenderness, present bowel sounds, non-distended Extremities: no edema, no tenderness, no cyanosis Laboratory Tests Test 08/22/19 05:25 White Blood Count 16.1 K/UL (4.8-10.8) H Red Blood Count 4.69 M/UL (4.70-6.10) L Hemoglobin 14.3 G/DL (14.2-18.0) Hematocrit 41.9 % (42.0-52.0) L Mean Corpuscular Volume 89 FL (80-99) Mean Corpuscular Hemoglobin 30.4 PG (27.0-31.0) Mean Corpuscular Hemoglobin Concent 34.1 G/DL (32.0-36.0) Red Cell Distribution Width 12.2 % (11.6-14.8) Platelet Count 204 K/UL (150-450) Mean Platelet Volume 5.7 FL (6.5-10.1) L Neutrophils (%) (Auto) 83.6 % (45.0-75.0) H Lymphocytes (%) (Auto) 10.2 % (20.0-45.0) L Monocytes (%) (Auto) 5.8 % (1.0-10.0) Eosinophils (%) (Auto) 0.1 % (0.0-3.0) Basophils (%) (Auto) 0.3 % (0.0-2.0) Prothrombin Time 10.4 SEC (9.30-11.50) Prothromb Time International Ratio 1.0 (0.9-1.1) Activated Partial Thromboplast Time 30 SEC (23-33) Sodium Level 140 MMOL/L (136-145) Potassium Level 3.4 MMOL/L (3.5-5.1) L Chloride Level 105 MMOL/L (98-107) Carbon Dioxide Level 26 MMOL/L (21-32) Anion Gap 9 mmol/L (5-15) Blood Urea Nitrogen 20 mg/dL (7-18) H Creatinine 1.0 MG/DL (0.55-1.30) Estimat Glomerular Filtration Rate > 60 mL/min (>60) Glucose Level 92 MG/DL (74-106) Calcium Level 8.5 MG/DL (8.5-10.1) Total Bilirubin 1.3 MG/DL (0.2-1.0) H Direct Bilirubin 0.5 MG/DL (0.0-0.3) H Aspartate Amino Transf (AST/SGOT) 31 U/L (15-37) Alanine Aminotransferase (ALT/SGPT) 63 U/L (12-78) Alkaline Phosphatase 104 U/L (46-116) Total Protein 6.9 G/DL (6.4-8.2) Albumin 2.7 G/DL (3.4-5.0) L Globulin 4.2 g/dL Albumin/Globulin Ratio 0.6 (1.0-2.7) L Amylase Level 44 U/L (25-115) Lipase 164 U/L (73-393) Plan Problems: (1) Cholecystitis Assessment & Plan: Case discussed with GI MRCP reviewed with radiologist cbd stone stable afebrile, HD Stable labs noted npo iv fluids iv abx AM labs will consider ERCP then cholecystectomy thank you will follow with recs Liver: Unremarkable. Gallbladder: Distended gallbladder. No definite shadowing cholelithiasis. Mildly prominent 4 mm gallbladder wall. Possible small pericholecystic fluid. Correlate clinically for cholecystitis. Common bile duct: CBD 6 mm. Pancreas: Pancreas obscured. Kidneys: No hydronephrosis. Spleen: Unremarkable. Aorta: Unremarkable as visualized. Inferior vena cava: Unremarkable as visualized. IMPRESSION: Distended gallbladder. No definite shadowing cholelithiasis. Mildly prominent 4 mm gallbladder wall. Possible small pericholecystic fluid. Correlate clinically for cholecystitis. the gallbladder wall is somewhat edematous and the gallbladder is distended. The fat saturated images suggests some infiltration of the pericholecystic fat as well as a small amount of fluid adjacent to the tip of the liver. No filling defects to suggest gallstones are evident in the gallbladder lumen. However, there is a possible 8 mm filling defect in the gallbladder neck. In addition, there is a 7 mm diameter filling defect in the downstream common bile duct. The common bile duct measures 7 mm in diameter. There is no intrahepatic biliary ductal dilatation. The liver, pancreas, spleen, adrenals, kidneys are unremarkable. The prostate is enlarged. There are trace bilateral pleural effusions. Impression: Positive for choledocholithiasis. This results in mild biliary ductal dilatation. Suspect gallbladder neck stone. Mild gallbladder wall edema in some infiltration of the pericholecystic fat raises possibility of acute cholecystitis. Consider hepatobiliary nuclear scan for confirmation if there is high clinical suspicion. Evidence of trace free intraperitoneal fluid Trace bilateral pleural effusions Lopez Zuniga Aug 22, 2019 19:39
[2019-08-22 20:00] VITALS: BP 141/75
[2019-08-23] VITALS (7 sets, daily range): BP systolic 128–148; BP diastolic 64–77
[2019-08-23] MEDS: Piperacillin/Tazobactam 3.375 GM in NS 110 ML IVPB SCH ×3 (05:11→21:21)
[2019-08-23] MEDS: Morphine Sulfate 2mg/ml Inj(IV/IM USE ONLY) IVP PRN (06:37)
[2019-08-23 07:15] LABS: BASOPHILS % (AUTO) 0.4 % (0.0-2.0); EOSINOPHILS % (AUTO) 0.1 % (0.0-3.0); HEMATOCRIT 37.6 % (42.0-52.0); HEMOGLOBIN 13.2 G/DL (14.2-18.0); LYMPHOCYTES % (AUTO) 10.1 % (20.0-45.0); MEAN CORPUSCULAR VOLUME 88 FL (80-99); NEUTROPHILS % (AUTO) 82.3 % (45.0-75.0); PLATELET COUNT 207 K/UL (150-450); RED BLOOD COUNT 4.26 M/UL (4.70-6.10); RED CELL DISTRIBUTION WIDTH 12.3 % (11.6-14.8); WHITE BLOOD COUNT 14.4 K/UL (4.8-10.8)
[2019-08-23 07:47] LABS: ALANINE AMINOTRANSFERASE 67 U/L (12-78); ALBUMIN 2.4 G/DL (3.4-5.0); ALBUMIN/GLOBULIN RATIO 0.6 (1.0-2.7); ALKALINE PHOSPHATASE 251 U/L (46-116); ANION GAP 10 mmol/L (5-15); ASPARTATE AMINO TRANSFERASE 81 U/L (15-37); BILIRUBIN,TOTAL 1.7 MG/DL (0.2-1.0); BLOOD UREA NITROGEN 20 mg/dL (7-18); CALCIUM 8.4 MG/DL (8.5-10.1); CARBON DIOXIDE 25 MMOL/L (21-32); CHLORIDE 106 MMOL/L (98-107); CREATININE 0.9 MG/DL (0.55-1.30); POTASSIUM 3.8 MMOL/L (3.5-5.1); SODIUM 141 MMOL/L (136-145)
[2019-08-23 07:48] LABS: BILIRUBIN,DIRECT 1.2 MG/DL (0.0-0.3)
[2019-08-23] MEDS: SIMETHICONE 80 MG PO SCH ×4 (08:32→17:08)
[2019-08-23] MEDS: Montelukast 10mg tablet ORAL SCH (08:32)
[2019-08-23] MEDS: Lactobacillus-GG tablet ORAL SCH (08:32)
--- NOTE | 2019-08-23 10:17 | General Progress Note ---
Assessment/Plan Assessment/Plan: cholecystitis gallstones abdominal pain PLAN NPO await ERCP and further GI and GS recommendations possible surgery iv hydration impression, plan, and exam edited and reviewed in detail care discussed with RN Subjective Allergies: Coded Allergies: No Known Allergies (Unverified , 08/20/19) Subjective care noted wants gallbladder out Objective Last 24 Hour Vital Signs Date Time Temp Pulse Resp B/P (MAP) Pulse Ox O2 Delivery O2 Flow Rate FiO2 08/23/19 08:01 Room Air 08/23/19 08:00 100.1 66 21 138/71 (93) 96 08/23/19 04:00 98.8 63 16 128/74 (92) 96 08/23/19 00:00 98.9 61 18 130/68 (88) 97 08/22/19 21:00 Room Air 08/22/19 20:00 98.7 68 16 141/75 (97) 95 08/22/19 16:00 98.6 70 21 119/73 (88) 95 08/22/19 12:00 100.5 70 21 119/68 (85) Intake and Output 08/22/19 08/23/19 19:00 07:00 Intake Total 500 ml 1200 ml Output Total 400 ml 800 ml Balance 100 ml 400 ml IV Total 500 ml 1200 ml Output Urine Total 400 ml 700 ml Emesis 100 ml # Voids 1 Laboratory Tests 08/23/19 05:40: White Blood Count 14.4H, Red Blood Count 4.26L, Hemoglobin 13.2L, Hematocrit 37.6L, Mean Corpuscular Volume 88, Mean Corpuscular Hemoglobin 31.0, Mean Corpuscular Hemoglobin Concent 35.2, Red Cell Distribution Width 12.3, Platelet Count 207, Mean Platelet Volume 5.2L, Neutrophils (%) (Auto) 82.3H, Lymphocytes (%) (Auto) 10.1L, Monocytes (%) (Auto) 7.0, Eosinophils (%) (Auto) 0.1, Basophils (%) (Auto) 0.4, Sodium Level 141, Potassium Level 3.8, Chloride Level 106, Carbon Dioxide Level 25, Anion Gap 10, Blood Urea Nitrogen 20H, Creatinine 0.9, Estimat Glomerular Filtration Rate > 60, Glucose Level 97, Calcium Level 8.4L, Total Bilirubin 1.7H, Direct Bilirubin 1.2H, Aspartate Amino Transf (AST/ SGOT) 81H, Alanine Aminotransferase (ALT/SGPT) 67, Alkaline Phosphatase 251H, Total Protein 6.4, Albumin 2.4L, Globulin 4.0, Albumin/Globulin Ratio 0.6L Height (Feet): 5 Height (Inches): 5.00 Weight (Pounds): 184 Objective WDWN NAD clear breath sounds bilaterally without rhonchi or wheeze [id number] without MRG NABS tender RUQ no CCE nonfocal Aaron Cordova MD Aug 23, 2019 10:17
--- NOTE | 2019-08-23 13:12 | GI Progress Note ---
Assessment/Plan Problems: (1) Choledocholithiasis ICD Codes: K80.50 - Calculus of bile duct without cholangitis or cholecystitis without obstruction SNOMED: 478393507 (2) Cholecystitis ICD Codes: K81.9 - Cholecystitis, unspecified SNOMED: 43435257 Status: unchanged Status Narrative Discussed with Dr. Lugo. Assessment/Plan Right upper quadrant abdominal pain most likely secondary to choledocholithiasis were versus cholecystitis. Noted on MRCP that there is a 7 mm filling defect in the common bile duct. Abdominal pain most likely due to biliary obstruction, less likely due to hepatocellular disease. - Plan for ERCP this Saturday. -Maintain n.p.o. plus IV fluids -pain mgmt -ppi -We will follow with additional recommendations post procedure The patient was seen and examined at bedside and all new and available data was reviewed in the patients chart. I agree with the above findings, impression and plan. (Patient seen earlier today. Signature stamp does not reflect patient encounter time.). - Regino Lugo MD Subjective Gastrointestinal/Abdominal: Reports: abdominal pain Objective Last 24 Hour Vital Signs Date Time Temp Pulse Resp B/P (MAP) Pulse Ox O2 Delivery O2 Flow Rate FiO2 08/23/19 12:00 97.4 69 20 139/69 (92) 96 08/23/19 08:01 Room Air 08/23/19 08:00 100.1 66 21 138/71 (93) 96 08/23/19 04:00 98.8 63 16 128/74 (92) 96 08/23/19 00:00 98.9 61 18 130/68 (88) 97 08/22/19 21:00 Room Air 08/22/19 20:00 98.7 68 16 141/75 (97) 95 08/22/19 16:00 98.6 70 21 119/73 (88) 95 Intake and Output 08/22/19 08/23/19 19:00 07:00 Intake Total 500 ml 1200 ml Output Total 400 ml 800 ml Balance 100 ml 400 ml IV Total 500 ml 1200 ml Output Urine Total 400 ml 700 ml Emesis 100 ml # Voids 1 Laboratory Tests Test 08/23/19 05:40 White Blood Count 14.4 K/UL (4.8-10.8) H Red Blood Count 4.26 M/UL (4.70-6.10) L Hemoglobin 13.2 G/DL (14.2-18.0) L Hematocrit 37.6 % (42.0-52.0) L Mean Corpuscular Volume 88 FL (80-99) Mean Corpuscular Hemoglobin 31.0 PG (27.0-31.0) Mean Corpuscular Hemoglobin Concent 35.2 G/DL (32.0-36.0) Red Cell Distribution Width 12.3 % (11.6-14.8) Platelet Count 207 K/UL (150-450) Mean Platelet Volume 5.2 FL (6.5-10.1) L Neutrophils (%) (Auto) 82.3 % (45.0-75.0) H Lymphocytes (%) (Auto) 10.1 % (20.0-45.0) L Monocytes (%) (Auto) 7.0 % (1.0-10.0) Eosinophils (%) (Auto) 0.1 % (0.0-3.0) Basophils (%) (Auto) 0.4 % (0.0-2.0) Sodium Level 141 MMOL/L (136-145) Potassium Level 3.8 MMOL/L (3.5-5.1) Chloride Level 106 MMOL/L (98-107) Carbon Dioxide Level 25 MMOL/L (21-32) Anion Gap 10 mmol/L (5-15) Blood Urea Nitrogen 20 mg/dL (7-18) H Creatinine 0.9 MG/DL (0.55-1.30) Estimat Glomerular Filtration Rate > 60 mL/min (>60) Glucose Level 97 MG/DL (74-106) Calcium Level 8.4 MG/DL (8.5-10.1) L Total Bilirubin 1.7 MG/DL (0.2-1.0) H Direct Bilirubin 1.2 MG/DL (0.0-0.3) H Aspartate Amino Transf (AST/SGOT) 81 U/L (15-37) H Alanine Aminotransferase (ALT/SGPT) 67 U/L (12-78) Alkaline Phosphatase 251 U/L (46-116) H Total Protein 6.4 G/DL (6.4-8.2) Albumin 2.4 G/DL (3.4-5.0) L Globulin 4.0 g/dL Albumin/Globulin Ratio 0.6 (1.0-2.7) L Height (Feet): 5 Height (Inches): 5.00 Weight (Pounds): 184 General Appearance: WD/WN, no apparent distress, alert Cardiovascular: normal rate Respiratory/Chest: normal breath sounds, no respiratory distress Abdominal Exam: normal bowel sounds, non tender, soft Extremities: normal range of motion, non-tender Antonio Priest NP Aug 23, 2019 13:12
--- NOTE | 2019-08-23 22:04 | Surgery Progress Note ---
Surgery Progress Note Subjective Additional Comments states he feels better today pain improved pending ERCP then cholecystectomy Objective Last 24 Hour Vital Signs Date Time Temp Pulse Resp B/P (MAP) Pulse Ox O2 Delivery O2 Flow Rate FiO2 08/23/19 21:42 99.3 60 16 148/74 (98) 96 08/23/19 20:00 99.8 60 16 148/64 (92) 96 08/23/19 17:00 99.4 08/23/19 16:00 100.7 69 20 133/77 (95) 97 08/23/19 12:00 97.4 69 20 139/69 (92) 96 08/23/19 08:01 Room Air 08/23/19 08:00 100.1 66 21 138/71 (93) 96 08/23/19 04:00 98.8 63 16 128/74 (92) 96 08/23/19 00:00 98.9 61 18 130/68 (88) 97 I&O Intake and Output 08/22/19 08/23/19 19:00 07:00 Intake Total 500 ml 1300 ml Output Total 400 ml 800 ml Balance 100 ml 500 ml IV Total 500 ml 1300 ml Output Urine Total 400 ml 700 ml Emesis 100 ml # Voids 1 Cardiovascular: RSR Respiratory: clear Abdomen: soft, tenderness, present bowel sounds, non-distended Extremities: no tenderness, no cyanosis Laboratory Tests Test 08/23/19 05:40 White Blood Count 14.4 K/UL (4.8-10.8) H Red Blood Count 4.26 M/UL (4.70-6.10) L Hemoglobin 13.2 G/DL (14.2-18.0) L Hematocrit 37.6 % (42.0-52.0) L Mean Corpuscular Volume 88 FL (80-99) Mean Corpuscular Hemoglobin 31.0 PG (27.0-31.0) Mean Corpuscular Hemoglobin Concent 35.2 G/DL (32.0-36.0) Red Cell Distribution Width 12.3 % (11.6-14.8) Platelet Count 207 K/UL (150-450) Mean Platelet Volume 5.2 FL (6.5-10.1) L Neutrophils (%) (Auto) 82.3 % (45.0-75.0) H Lymphocytes (%) (Auto) 10.1 % (20.0-45.0) L Monocytes (%) (Auto) 7.0 % (1.0-10.0) Eosinophils (%) (Auto) 0.1 % (0.0-3.0) Basophils (%) (Auto) 0.4 % (0.0-2.0) Sodium Level 141 MMOL/L (136-145) Potassium Level 3.8 MMOL/L (3.5-5.1) Chloride Level 106 MMOL/L (98-107) Carbon Dioxide Level 25 MMOL/L (21-32) Anion Gap 10 mmol/L (5-15) Blood Urea Nitrogen 20 mg/dL (7-18) H Creatinine 0.9 MG/DL (0.55-1.30) Estimat Glomerular Filtration Rate > 60 mL/min (>60) Glucose Level 97 MG/DL (74-106) Calcium Level 8.4 MG/DL (8.5-10.1) L Total Bilirubin 1.7 MG/DL (0.2-1.0) H Direct Bilirubin 1.2 MG/DL (0.0-0.3) H Aspartate Amino Transf (AST/SGOT) 81 U/L (15-37) H Alanine Aminotransferase (ALT/SGPT) 67 U/L (12-78) Alkaline Phosphatase 251 U/L (46-116) H Total Protein 6.4 G/DL (6.4-8.2) Albumin 2.4 G/DL (3.4-5.0) L Globulin 4.0 g/dL Albumin/Globulin Ratio 0.6 (1.0-2.7) L Plan Problems: (1) Cholecystitis Assessment & Plan: Case discussed with GI MRCP reviewed with radiologist cbd stone stable afebrile, HD Stable labs noted npo iv fluids iv abx AM labs will consider ERCP then cholecystectomy thank you will follow with recs Liver: Unremarkable. Gallbladder: Distended gallbladder. No definite shadowing cholelithiasis. Mildly prominent 4 mm gallbladder wall. Possible small pericholecystic fluid. Correlate clinically for cholecystitis. Common bile duct: CBD 6 mm. Pancreas: Pancreas obscured. Kidneys: No hydronephrosis. Spleen: Unremarkable. Aorta: Unremarkable as visualized. Inferior vena cava: Unremarkable as visualized. IMPRESSION: Distended gallbladder. No definite shadowing cholelithiasis. Mildly prominent 4 mm gallbladder wall. Possible small pericholecystic fluid. Correlate clinically for cholecystitis. the gallbladder wall is somewhat edematous and the gallbladder is distended. The fat saturated images suggests some infiltration of the pericholecystic fat as well as a small amount of fluid adjacent to the tip of the liver. No filling defects to suggest gallstones are evident in the gallbladder lumen. However, there is a possible 8 mm filling defect in the gallbladder neck. In addition, there is a 7 mm diameter filling defect in the downstream common bile duct. The common bile duct measures 7 mm in diameter. There is no intrahepatic biliary ductal dilatation. The liver, pancreas, spleen, adrenals, kidneys are unremarkable. The prostate is enlarged. There are trace bilateral pleural effusions. Impression: Positive for choledocholithiasis. This results in mild biliary ductal dilatation. Suspect gallbladder neck stone. Mild gallbladder wall edema in some infiltration of the pericholecystic fat raises possibility of acute cholecystitis. Consider hepatobiliary nuclear scan for confirmation if there is high clinical suspicion. Evidence of trace free intraperitoneal fluid Trace bilateral pleural effusions Lopez Zuniga Aug 23, 2019 22:04
[2019-08-24] VITALS (17 sets, daily range): BP systolic 130–153; BP diastolic 62–80
[2019-08-24] MEDS: Piperacillin/Tazobactam 3.375 GM in NS 110 ML IVPB SCH ×3 (05:03→21:00)
[2019-08-24 06:46] LABS: BASOPHILS % (AUTO) 0.7 % (0.0-2.0); EOSINOPHILS % (AUTO) 0.4 % (0.0-3.0); HEMATOCRIT 36.2 % (42.0-52.0); HEMOGLOBIN 12.7 G/DL (14.2-18.0); LYMPHOCYTES % (AUTO) 12.7 % (20.0-45.0); MEAN CORPUSCULAR VOLUME 88 FL (80-99); NEUTROPHILS % (AUTO) 77.2 % (45.0-75.0); PLATELET COUNT 223 K/UL (150-450); RED BLOOD COUNT 4.13 M/UL (4.70-6.10); WHITE BLOOD COUNT 12.4 K/UL (4.8-10.8)
[2019-08-24 06:52] LABS: INR 0.9 (0.9-1.1)
[2019-08-24 08:00] LABS: ALANINE AMINOTRANSFERASE 98 U/L (12-78); ALBUMIN 2.4 G/DL (3.4-5.0); ALBUMIN/GLOBULIN RATIO 0.6 (1.0-2.7); ALKALINE PHOSPHATASE 334 U/L (46-116); ANION GAP 9 mmol/L (5-15); ASPARTATE AMINO TRANSFERASE 90 U/L (15-37); BILIRUBIN,TOTAL 1.1 MG/DL (0.2-1.0); BLOOD UREA NITROGEN 21 mg/dL (7-18); CALCIUM 8.2 MG/DL (8.5-10.1); CARBON DIOXIDE 26 MMOL/L (21-32); CHLORIDE 108 MMOL/L (98-107); POTASSIUM 3.4 MMOL/L (3.5-5.1); SODIUM 143 MMOL/L (136-145)
[2019-08-24 08:17] LABS: BILIRUBIN,DIRECT 0.5 MG/DL (0.0-0.3)
--- NOTE | 2019-08-24 08:49 | Pre-Procedure Note/Attestation ---
Pre-Procedure Note/Attestation Complete Prior to Procedure Planned Procedure: not applicable Procedure Narrative: ercp Indications for Procedure Pre-Operative Diagnosis: choledocholithiasis Attestation I attest that I discussed the nature of the procedure; its benefits; risks and complications; and alternatives (and the risks and benefits of such alternatives ), prior to the procedure, with the patient (or the patient's legal client relations representative). I attest that, if there was a reasonable possibility of needing a blood transfusion, the patient (or the patient's legal client relations representative) was given the [facility] standardized written summary, pursuant to the Norm Aimee Blood Safety Act ([place] Health and Safety Code # 1645, as amended). I attest that I re-evaluated the patient just prior to the surgery and that there has been no change in the patient's H&P, except as documented below: Regino Lugo MD Aug 24, 2019 08:49
[2019-08-24] MEDS: Lactobacillus-GG tablet ORAL SCH (09:00)
[2019-08-24] MEDS: SIMETHICONE 80 MG PO SCH ×3 (09:00→17:25)
[2019-08-24] MEDS: Montelukast 10mg tablet ORAL SCH (09:00)
[2019-08-24] MEDS ORDERED: Iothalamate Meglumine 60% 50ML INJ ONE (09:33)
[2019-08-24] MEDS: NS w/KCl 20mEq 1000ml 1,000 ML IV SCH ×2 (10:43→20:59)
--- NOTE | 2019-08-24 10:57 | General Progress Note ---
Assessment/Plan Status: unchanged Assessment/Plan: cholecystitis gallstones abdominal pain PLAN NPO await ERCP and further GI and GS recommendations possible surgery iv hydration impression, plan, and exam edited and reviewed in detail care discussed with RN Subjective ROS Limited/Unobtainable: No Allergies: Coded Allergies: No Known Allergies (Unverified , 08/20/19) Subjective care noted awaiting ERCP Objective Last 24 Hour Vital Signs Date Time Temp Pulse Resp B/P (MAP) Pulse Ox O2 Delivery O2 Flow Rate FiO2 08/24/19 09:00 Room Air 08/24/19 08:00 98.8 54 20 134/73 (93) 97 08/24/19 04:45 98.5 54 16 138/71 (93) 97 08/24/19 00:00 98.7 56 17 141/67 (91) 98 08/23/19 21:42 99.3 60 16 148/74 (98) 96 08/23/19 21:00 Room Air 08/23/19 20:00 99.8 60 16 148/64 (92) 96 08/23/19 17:00 99.4 08/23/19 16:00 100.7 69 20 133/77 (95) 97 08/23/19 12:00 97.4 69 20 139/69 (92) 96 Intake and Output 08/23/19 08/24/19 19:00 07:00 Intake Total 900 ml 1100 ml Output Total 950 ml 600 ml Balance -50 ml 500 ml IV Total 900 ml 1100 ml Output Urine Total 950 ml 550 ml Emesis 50 ml Laboratory Tests 08/24/19 06:10: White Blood Count 12.4H, Red Blood Count 4.13L, Hemoglobin 12.7L, Hematocrit 36.2L, Mean Corpuscular Volume 88, Mean Corpuscular Hemoglobin 30.8, Mean Corpuscular Hemoglobin Concent 35.1, Red Cell Distribution Width 12.0, Platelet Count 223, Mean Platelet Volume 5.7L, Neutrophils (%) (Auto) 77.2H, Lymphocytes (%) (Auto) 12.7L, Monocytes (%) (Auto) 9.0, Eosinophils (%) (Auto) 0.4, Basophils (%) (Auto) 0.7, Prothrombin Time 9.7, Prothromb Time International Ratio 0.9, Activated Partial Thromboplast Time 25, Sodium Level 143, Potassium Level 3.4L, Chloride Level 108H, Carbon Dioxide Level 26, Anion Gap 9, Blood Urea Nitrogen 21H, Creatinine 1.0, Estimat Glomerular Filtration Rate > 60, Glucose Level 107H, Calcium Level 8.2L, Total Bilirubin 1.1H, Direct Bilirubin 0.5H, Aspartate Amino Transf (AST/SGOT) 90H, Alanine Aminotransferase (ALT/SGPT ) 98H, Alkaline Phosphatase 334H, Total Protein 6.5, Albumin 2.4L, Globulin 4.1 , Albumin/Globulin Ratio 0.6L Height (Feet): 5 Height (Inches): 5.00 Weight (Pounds): 184 Objective WDWN NAD clear breath sounds bilaterally without rhonchi or wheeze [id number] without MRG NABS tender RUQ no CCE nonfocal Aaron Cordova MD Aug 24, 2019 10:57
[2019-08-24] MEDS ORDERED: Lidocaine 1% Plain 30 ml INJ ONE (11:30)
[2019-08-24] MEDS ORDERED: NS 500ML IVPB ONE (11:30)
[2019-08-24] MEDS ORDERED: LR 1000ml 1,000 ML IVLG SCH (11:51)
--- NOTE | 2019-08-24 11:54 | Anethesia Preoperative Eval ---
Anesthesia Pre-op PMH/ROS General Date of Evaluation: Aug 24, 2019 Time of Evaluation: 11:17 Anesthesiologist: Yvon ASA Score: ASA 3 Mallampati Score Class I : Soft palate, uvula, fauces, pillars visible Class II: Soft palate, uvula, fauces visible Class III: Soft palate, base of uvula visible Class IV: Only hard plate visible Mallampati Classification: Class II Surgeon: Brittney Diagnosis: Abd Pain Surgical Procedure: ERCP Anesthesia History: none Family History: no anesthesia problems Allergies: Coded Allergies: No Known Allergies (Unverified , 08/20/19) Medications: see eMAR Patient NPO?: Yes Past Medical History Cardiovascular: Reports: HTN Gastrointestinal/Genitourinary: Reports: other - Cholecystitis, UTI Hematology/Immune: Reports: anemia Other: obesity - BMI 32 Anesthesia Pre-op Phys. Exam Physician Exam Last Vital Signs Date Time Temp Pulse Resp B/P (MAP) Pulse Ox O2 Delivery O2 Flow Rate FiO2 08/24/19 09:00 Room Air 08/24/19 08:00 98.8 54 20 134/73 (93) 97 Constitutional: NAD Neurologic: CN 2-12 intact Cardiovascular: RRR Respiratory: CTA Gastrointestinal: S/NT/ND Airway Exam Mallampati Score: Class II MO: full ROM: full Teeth: intact Anesthesia Pre-op A/P Labs Hematology Test 08/24/19 06:10 White Blood Count 12.4 K/UL (4.8-10.8) H Red Blood Count 4.13 M/UL (4.70-6.10) L Hemoglobin 12.7 G/DL (14.2-18.0) L Hematocrit 36.2 % (42.0-52.0) L Mean Corpuscular Volume 88 FL (80-99) Mean Corpuscular Hemoglobin 30.8 PG (27.0-31.0) Mean Corpuscular Hemoglobin Concent 35.1 G/DL (32.0-36.0) Red Cell Distribution Width 12.0 % (11.6-14.8) Platelet Count 223 K/UL (150-450) Mean Platelet Volume 5.7 FL (6.5-10.1) L Neutrophils (%) (Auto) 77.2 % (45.0-75.0) H Lymphocytes (%) (Auto) 12.7 % (20.0-45.0) L Monocytes (%) (Auto) 9.0 % (1.0-10.0) Eosinophils (%) (Auto) 0.4 % (0.0-3.0) Basophils (%) (Auto) 0.7 % (0.0-2.0) Coagulation Test 08/24/19 06:10 Prothrombin Time 9.7 SEC (9.30-11.50) Prothromb Time International Ratio 0.9 (0.9-1.1) Activated Partial Thromboplast Time 25 SEC (23-33) Chemistry Test 08/24/19 06:10 Sodium Level 143 MMOL/L (136-145) Potassium Level 3.4 MMOL/L (3.5-5.1) L Chloride Level 108 MMOL/L (98-107) H Carbon Dioxide Level 26 MMOL/L (21-32) Anion Gap 9 mmol/L (5-15) Blood Urea Nitrogen 21 mg/dL (7-18) H Creatinine 1.0 MG/DL (0.55-1.30) Estimat Glomerular Filtration Rate > 60 mL/min (>60) Glucose Level 107 MG/DL (74-106) H Calcium Level 8.2 MG/DL (8.5-10.1) L Total Bilirubin 1.1 MG/DL (0.2-1.0) H Direct Bilirubin 0.5 MG/DL (0.0-0.3) H Aspartate Amino Transf (AST/SGOT) 90 U/L (15-37) H Alanine Aminotransferase (ALT/SGPT) 98 U/L (12-78) H Alkaline Phosphatase 334 U/L (46-116) H Total Protein 6.5 G/DL (6.4-8.2) Albumin 2.4 G/DL (3.4-5.0) L Globulin 4.1 g/dL Albumin/Globulin Ratio 0.6 (1.0-2.7) L Risk Assessment & Plan Assessment: ASA 3 Plan: TIVA Status Change Before Surgery: No Pre-Antibiotics Drug: Already On Juwan Sanz MD Aug 24, 2019 11:54
[2019-08-24] MEDS ORDERED: HYDROcodone/Acetamin 5/325 tab ORAL PRN (12:00)
[2019-08-24] MEDS ORDERED: fentaNYL 100 mcg/2 mL IV PRN (12:00)
[2019-08-24] MEDS ORDERED: Ketorolac 30mg Inj IV PRN ×2 (12:00)
[2019-08-24] MEDS ORDERED: Glucagon 1mg Inj ONE (12:00)
[2019-08-24] MEDS ORDERED: Atropine Sulfate 0.4mg/ml inj IVP PRN (12:00)
[2019-08-24] MEDS ORDERED: Labetalol 5mg/ml 20ml vial IV PRN (12:00)
[2019-08-24] MEDS ORDERED: Metoclopramide 10mg/2ml Inj IVP PRN (12:00)
[2019-08-24] MEDS ORDERED: HYDROcodone/Acetamin 7.5/325 tab ORAL PRN (12:00)
[2019-08-24] MEDS ORDERED: Hydromorphone 0.5mg/0.5ml inj IVP PRN (12:00)
[2019-08-24] MEDS ORDERED: DiphenhydrAMINE 50mg/ml Inj IVP PRN (12:00)
[2019-08-24] MEDS ORDERED: Midazolam 2mg/2ml Inj IVP PRN (12:00)
[2019-08-24] MEDS ORDERED: Meperidine 25mg/0.5ml Inj (FOR RIGORS ONLY) IV PRN (12:00)
[2019-08-24] MEDS ORDERED: LORazepam Inj 2mg/ml 1ml IV PRN (12:00)
[2019-08-24] MEDS ORDERED: oxyCODONE HCL/Acetaminophen 5/325mg ORAL PRN (12:00)
--- NOTE | 2019-08-24 12:16 | Immediate Post-Op Evaluation ---
Immediate Post-Op Evalulation Immediate Post-Op Evalulation Procedure: ERCP Date of Evaluation: Aug 24, 2019 Time of Evaluation: 12:55 IV Fluids: 1255 Blood Products: 0 Estimated Blood Loss: 20 Urinary Output: 200 NS Blood Pressure Systolic: 145 Blood Pressure Diastolic: 83 Pulse Rate: 56 Respiratory Rate: 16 O2 Sat by Pulse Oximetry: 99 Temperature (Fahrenheit): 96.8 Pain Score (1-10): 2 Nausea: No Vomiting: No Complications 0 Patient Status: awake, reacts, patent, none Hydration Status: adequate Drug: On Floor Juwan Sanz MD Aug 24, 2019 12:16
--- NOTE | 2019-08-24 12:17 | 48 Hour Post Anesthesia Eval ---
Post Anesthesia Evaluation Procedure: ERCP Date of Evaluation: Aug 24, 2019 Time of Evaluation: 15:12 Blood Pressure Systolic: 142 0: 74 Pulse Rate: 61 Respiratory Rate: 18 Temperature (Fahrenheit): 98 O2 Sat by Pulse Oximetry: 99 Airway: patent Nausea: No Vomiting: No Pain Intensity: 2 Hydration Status: adequate Cardiopulmonary Status: Stable Mental Status/LOC: patient returned to baseline Follow-up Care/Observations: 0 Post-Anesthesia Complications: 0 Follow-up care needed: N/A Juwan Sanz MD Aug 24, 2019 12:17
[2019-08-24] MEDS ORDERED: Propofol 200mg/20ml IV ONE (12:44)
[2019-08-24] MEDS ORDERED: LR 1000ml ONE (12:44)
--- NOTE | 2019-08-24 12:59 | Endoscopy Procedure Note ---
Endoscopy Procedure Note General Indication for Procedure: choledocholithiasis Procedures Performed: ERCP Operative Findings/Diagnosis: same Specimen: none Pt Tolerated Procedure Well: Yes Estimated Blood Loss: none Anesthesia Anesthesiologist: cha Anesthesia: MAC Inserted Devices Implant(s) used?: No GI Core Measures 50 yrs or older w/o bx or poly: Not Applicable 10yrs. F/U recommended: Not Applicable Regino Lugo MD Aug 24, 2019 12:59
[2019-08-24] MEDS ORDERED: Flumazenil 0.1mg/ml 5ml Inj IV ONE (13:10)
--- NOTE | 2019-08-24 13:25 | Surgery Progress Note ---
Surgery Progress Note Subjective Additional Comments ERCP today duct cleared plan for lap vs open liban tomorrow Objective Last 24 Hour Vital Signs Date Time Temp Pulse Resp B/P (MAP) Pulse Ox O2 Delivery O2 Flow Rate FiO2 08/24/19 13:10 50 21 133/77 98 Nasal Cannula 3 08/24/19 13:00 58 19 135/74 98 Simple Mask 6 08/24/19 12:55 50 20 153/74 98 Simple Mask 6 08/24/19 12:45 56 23 143/76 100 Simple Mask 6 08/24/19 12:45 61 18 99 08/24/19 12:44 56 16 99 08/24/19 12:40 56 22 145/80 99 Simple Mask 6 08/24/19 12:37 98.6 60 20 146/78 99 Simple Mask 6 08/24/19 09:00 Room Air 08/24/19 08:00 98.8 54 20 134/73 (93) 97 08/24/19 04:45 98.5 54 16 138/71 (93) 97 08/24/19 00:00 98.7 56 17 141/67 (91) 98 08/23/19 21:42 99.3 60 16 148/74 (98) 96 08/23/19 21:00 Room Air 08/23/19 20:00 99.8 60 16 148/64 (92) 96 08/23/19 17:00 99.4 08/23/19 16:00 100.7 69 20 133/77 (95) 97 I&O Intake and Output 08/23/19 08/24/19 19:00 07:00 Intake Total 900 ml 1100 ml Output Total 950 ml 600 ml Balance -50 ml 500 ml IV Total 900 ml 1100 ml Output Urine Total 950 ml 550 ml Emesis 50 ml Cardiovascular: RSR Respiratory: clear Abdomen: soft, tenderness, present bowel sounds, non-distended Extremities: no edema Laboratory Tests Test 08/24/19 06:10 White Blood Count 12.4 K/UL (4.8-10.8) H Red Blood Count 4.13 M/UL (4.70-6.10) L Hemoglobin 12.7 G/DL (14.2-18.0) L Hematocrit 36.2 % (42.0-52.0) L Mean Corpuscular Volume 88 FL (80-99) Mean Corpuscular Hemoglobin 30.8 PG (27.0-31.0) Mean Corpuscular Hemoglobin Concent 35.1 G/DL (32.0-36.0) Red Cell Distribution Width 12.0 % (11.6-14.8) Platelet Count 223 K/UL (150-450) Mean Platelet Volume 5.7 FL (6.5-10.1) L Neutrophils (%) (Auto) 77.2 % (45.0-75.0) H Lymphocytes (%) (Auto) 12.7 % (20.0-45.0) L Monocytes (%) (Auto) 9.0 % (1.0-10.0) Eosinophils (%) (Auto) 0.4 % (0.0-3.0) Basophils (%) (Auto) 0.7 % (0.0-2.0) Prothrombin Time 9.7 SEC (9.30-11.50) Prothromb Time International Ratio 0.9 (0.9-1.1) Activated Partial Thromboplast Time 25 SEC (23-33) Sodium Level 143 MMOL/L (136-145) Potassium Level 3.4 MMOL/L (3.5-5.1) L Chloride Level 108 MMOL/L (98-107) H Carbon Dioxide Level 26 MMOL/L (21-32) Anion Gap 9 mmol/L (5-15) Blood Urea Nitrogen 21 mg/dL (7-18) H Creatinine 1.0 MG/DL (0.55-1.30) Estimat Glomerular Filtration Rate > 60 mL/min (>60) Glucose Level 107 MG/DL (74-106) H Calcium Level 8.2 MG/DL (8.5-10.1) L Total Bilirubin 1.1 MG/DL (0.2-1.0) H Direct Bilirubin 0.5 MG/DL (0.0-0.3) H Aspartate Amino Transf (AST/SGOT) 90 U/L (15-37) H Alanine Aminotransferase (ALT/SGPT) 98 U/L (12-78) H Alkaline Phosphatase 334 U/L (46-116) H Total Protein 6.5 G/DL (6.4-8.2) Albumin 2.4 G/DL (3.4-5.0) L Globulin 4.1 g/dL Albumin/Globulin Ratio 0.6 (1.0-2.7) L Plan Problems: (1) Cholecystitis Assessment & Plan: Case discussed with GI MRCP reviewed with radiologist cbd stone stable afebrile, HD Stable labs noted npo iv fluids iv abx AM labs ERCP then cholecystectomy OR tomorrow thank you will follow with recs Liver: Unremarkable. Gallbladder: Distended gallbladder. No definite shadowing cholelithiasis. Mildly prominent 4 mm gallbladder wall. Possible small pericholecystic fluid. Correlate clinically for cholecystitis. Common bile duct: CBD 6 mm. Pancreas: Pancreas obscured. Kidneys: No hydronephrosis. Spleen: Unremarkable. Aorta: Unremarkable as visualized. Inferior vena cava: Unremarkable as visualized. IMPRESSION: Distended gallbladder. No definite shadowing cholelithiasis. Mildly prominent 4 mm gallbladder wall. Possible small pericholecystic fluid. Correlate clinically for cholecystitis. the gallbladder wall is somewhat edematous and the gallbladder is distended. The fat saturated images suggests some infiltration of the pericholecystic fat as well as a small amount of fluid adjacent to the tip of the liver. No filling defects to suggest gallstones are evident in the gallbladder lumen. However, there is a possible 8 mm filling defect in the gallbladder neck. In addition, there is a 7 mm diameter filling defect in the downstream common bile duct. The common bile duct measures 7 mm in diameter. There is no intrahepatic biliary ductal dilatation. The liver, pancreas, spleen, adrenals, kidneys are unremarkable. The prostate is enlarged. There are trace bilateral pleural effusions. Impression: Positive for choledocholithiasis. This results in mild biliary ductal dilatation. Suspect gallbladder neck stone. Mild gallbladder wall edema in some infiltration of the pericholecystic fat raises possibility of acute cholecystitis. Consider hepatobiliary nuclear scan for confirmation if there is high clinical suspicion. Evidence of trace free intraperitoneal fluid Trace bilateral pleural effusions Lopez Zuniga Aug 24, 2019 13:25
--- NOTE | 2019-08-24 13:26 | Pre-Procedure Note/Attestation ---
Pre-Procedure Note/Attestation Complete Prior to Procedure Procedure Narrative: laparoscopic cholecystectomy, possible open, possible Intraoperative cholangiogram Indications for Procedure Pre-Operative Diagnosis: acute cholecystitis with choledocholithiasis Attestation I attest that I discussed the nature of the procedure; its benefits; risks and complications; and alternatives (and the risks and benefits of such alternatives ), prior to the procedure, with the patient (or the patient's legal quality control representative). I attest that, if there was a reasonable possibility of needing a blood transfusion, the patient (or the patient's legal quality control representative) was given the [facility] standardized written summary, pursuant to the Norm [place] Blood Safety Act ([place] Health and Safety Code # 1645, as amended). I attest that I re-evaluated the patient just prior to the surgery and that there has been no change in the patient's H&P, except as documented below: Lopez Zuniga Aug 24, 2019 13:26
--- NOTE | 2019-08-24 14:28 | Anethesia Preoperative Eval ---
Anesthesia Pre-op PMH/ROS General Date of Evaluation: Aug 24, 2019 Time of Evaluation: 14:34 Anesthesiologist: Yvon ASA Score: ASA 3 Mallampati Score Class I : Soft palate, uvula, fauces, pillars visible Class II: Soft palate, uvula, fauces visible Class III: Soft palate, base of uvula visible Class IV: Only hard plate visible Mallampati Classification: Class II Surgeon: Efrain Diagnosis: Acute Cholecystitis Surgical Procedure: Laparscopic Cholecystectomy Anesthesia History: none Family History: no anesthesia problems Allergies: Coded Allergies: No Known Allergies (Unverified , 08/20/19) Medications: see eMAR Patient NPO?: Yes Past Medical History Cardiovascular: Reports: HTN Gastrointestinal/Genitourinary: Reports: other - Cholecystitis, UTI Hematology/Immune: Reports: anemia Other: obesity - BMI 32 PSxH Narrative: ERCP 08/24/19 Anesthesia Pre-op Phys. Exam Physician Exam Last Vital Signs Date Time Temp Pulse Resp B/P (MAP) Pulse Ox O2 Delivery O2 Flow Rate FiO2 08/24/19 13:20 56 17 130/68 98 Nasal Cannula 3 08/24/19 12:37 98.6 Constitutional: NAD Neurologic: CN 2-12 intact Cardiovascular: RRR Respiratory: CTA Gastrointestinal: S/NT/ND Airway Exam Mallampati Score: Class II MO: full ROM: full Teeth: intact Anesthesia Pre-op A/P Labs Hematology Test 08/24/19 06:10 White Blood Count 12.4 K/UL (4.8-10.8) H Red Blood Count 4.13 M/UL (4.70-6.10) L Hemoglobin 12.7 G/DL (14.2-18.0) L Hematocrit 36.2 % (42.0-52.0) L Mean Corpuscular Volume 88 FL (80-99) Mean Corpuscular Hemoglobin 30.8 PG (27.0-31.0) Mean Corpuscular Hemoglobin Concent 35.1 G/DL (32.0-36.0) Red Cell Distribution Width 12.0 % (11.6-14.8) Platelet Count 223 K/UL (150-450) Mean Platelet Volume 5.7 FL (6.5-10.1) L Neutrophils (%) (Auto) 77.2 % (45.0-75.0) H Lymphocytes (%) (Auto) 12.7 % (20.0-45.0) L Monocytes (%) (Auto) 9.0 % (1.0-10.0) Eosinophils (%) (Auto) 0.4 % (0.0-3.0) Basophils (%) (Auto) 0.7 % (0.0-2.0) Coagulation Test 08/24/19 06:10 Prothrombin Time 9.7 SEC (9.30-11.50) Prothromb Time International Ratio 0.9 (0.9-1.1) Activated Partial Thromboplast Time 25 SEC (23-33) Chemistry Test 08/24/19 06:10 Sodium Level 143 MMOL/L (136-145) Potassium Level 3.4 MMOL/L (3.5-5.1) L Chloride Level 108 MMOL/L (98-107) H Carbon Dioxide Level 26 MMOL/L (21-32) Anion Gap 9 mmol/L (5-15) Blood Urea Nitrogen 21 mg/dL (7-18) H Creatinine 1.0 MG/DL (0.55-1.30) Estimat Glomerular Filtration Rate > 60 mL/min (>60) Glucose Level 107 MG/DL (74-106) H Calcium Level 8.2 MG/DL (8.5-10.1) L Total Bilirubin 1.1 MG/DL (0.2-1.0) H Direct Bilirubin 0.5 MG/DL (0.0-0.3) H Aspartate Amino Transf (AST/SGOT) 90 U/L (15-37) H Alanine Aminotransferase (ALT/SGPT) 98 U/L (12-78) H Alkaline Phosphatase 334 U/L (46-116) H Total Protein 6.5 G/DL (6.4-8.2) Albumin 2.4 G/DL (3.4-5.0) L Globulin 4.1 g/dL Albumin/Globulin Ratio 0.6 (1.0-2.7) L Risk Assessment & Plan Assessment: ASA 3 Plan: GA Status Change Before Surgery: No Pre-Antibiotics Drug: Juwan Batres MD Aug 24, 2019 14:28
--- NOTE | 2019-08-24 22:00 | Procedure Note ---
DATE OF PROCEDURE: 08/24/2019 PROCEDURE: ERCP, sphincterotomy, stone removal. SURGEON: Regino Lugo M.D. ANESTHESIA: Per Dr. Sanz. INSTRUMENT: Olympus adult ERCP scope. INDICATION: Choledocholithiasis. REASON FOR PROCEDURE: The procedure, risks, benefits, and possible consequences, including hemorrhage, aspiration, perforation and infection, and alternative treatments, were explained to the patient/legal guardian by Dr. Regino Lugo and the patient/legal guardian understood and accepted these risks. PROCEDURE IN DETAIL: After informed consent was obtained and the patient was adequately sedated, ERCP scope was advanced from mouth into the second portion of the duodenum. This was a challenging procedure. Patient had periampullary diverticulum. Also, patient had very tight ampulla. Initially, we tried using a sphincterotome to cannulate, which failed. Then, we switched to 543 catheter, which we were successful to cannulate common bile duct. Common bile duct was very small, measured maybe about 5 to 6 mm in size. There was a stone in the proximal common bile duct. Cystic duct also had a stone right at the opening of the cystic duct into the common bile duct almost impacting into the opening of the common bile duct into the cystic duct, so neck of the cystic duct basically. Then, over a guidewire we performed 95% sphincterotomy. Then, we used a balloon to sweep the duct multiple times. The stone was removed and there was no further filling defect in the common bile duct, but as I mentioned, the cystic duct was high and common bile duct very high, also was a stone stuck in the neck of it. At this time, the procedure was terminated. SUMMARY OF FINDINGS: 1. Choledocholithiasis. 2. Cholelithiasis with a stone in the cystic duct neck. 3. Status post ERCP, sphincterotomy, stone removal. RECOMMENDATIONS: Patient to be followed by Surgery for possible cholecystectomy. Regino Lugo M.D. DR: JULIANNE JOB#: [id number] CC:
[2019-08-25] VITALS (16 sets, daily range): BP systolic 112–149; BP diastolic 57–82
[2019-08-25] MEDS: NS w/KCl 20mEq 1000ml 1,000 ML IV SCH ×3 (05:36→17:00)
[2019-08-25] MEDS: Piperacillin/Tazobactam 3.375 GM in NS 110 ML IVPB SCH ×3 (05:36→22:35)
--- NOTE | 2019-08-25 06:34 | General Progress Note ---
Assessment/Plan Problem List: (1) Choledocholithiasis ICD Codes: K80.50 - Calculus of bile duct without cholangitis or cholecystitis without obstruction SNOMED: 764634600 (2) Cholecystitis ICD Codes: K81.9 - Cholecystitis, unspecified SNOMED: 11205411 (3) UTI (urinary tract infection) ICD Codes: N39.0 - Urinary tract infection, site not specified SNOMED: 58224648 Qualifiers: Qualified Codes: N30.01 - Acute cystitis with hematuria Status: unchanged Assessment/Plan: s/p ERCP yesterday pending surg for today repeat labs will fu Subjective ROS Limited/Unobtainable: Yes Allergies: Coded Allergies: No Known Allergies (Unverified , 08/20/19) Objective Last 24 Hour Vital Signs Date Time Temp Pulse Resp B/P (MAP) Pulse Ox O2 Delivery O2 Flow Rate FiO2 08/25/19 04:00 98.3 50 18 142/64 (90) 98 08/24/19 23:52 98.9 50 18 139/62 (87) 97 08/24/19 21:00 Room Air 08/24/19 20:00 99.8 56 18 145/68 (93) 96 08/24/19 16:45 98.8 53 20 138/68 (91) 99 08/24/19 15:45 98.5 53 20 134/69 (90) 99 08/24/19 14:45 99.1 54 20 137/68 (91) 97 08/24/19 14:15 98.6 53 20 133/65 (87) 98 08/24/19 13:45 99.6 54 20 131/65 (87) 99 08/24/19 13:20 56 17 130/68 98 Nasal Cannula 3 08/24/19 13:10 50 21 133/77 98 Nasal Cannula 3 08/24/19 13:00 58 19 135/74 98 Simple Mask 6 08/24/19 12:55 50 20 153/74 98 Simple Mask 6 08/24/19 12:45 56 23 143/76 100 Simple Mask 6 08/24/19 12:45 61 18 99 08/24/19 12:44 56 16 99 08/24/19 12:40 56 22 145/80 99 Simple Mask 6 08/24/19 12:37 98.6 60 20 146/78 99 Simple Mask 6 08/24/19 09:00 Room Air 08/24/19 08:00 98.8 54 20 134/73 (93) 97 Intake and Output 08/24/19 08/25/19 19:00 07:00 Intake Total 1360 ml Output Total 200 ml 1000 ml Balance 1160 ml -1000 ml IV Total 1360 ml Output Urine Total 200 ml 1000 ml Estimated Blood Loss 0 ml # Voids 1 1 Laboratory Tests 08/25/19 04:40: White Blood Count [Pending], Red Blood Count [Pending], Hemoglobin [Pending], Hematocrit [Pending], Mean Corpuscular Volume [Pending], Mean Corpuscular Hemoglobin [Pending], Mean Corpuscular Hemoglobin Concent [Pending], Red Cell Distribution Width [Pending], Platelet Count [Pending], Mean Platelet Volume [ Pending], Neutrophils (%) (Auto) [Pending], Lymphocytes (%) (Auto) [Pending], Monocytes (%) (Auto) [Pending], Eosinophils (%) (Auto) [Pending], Basophils (%) (Auto) [Pending], Sodium Level [Pending], Potassium Level [Pending], Chloride Level [Pending], Carbon Dioxide Level [Pending], Blood Urea Nitrogen [Pending], Creatinine [Pending], Estimat Glomerular Filtration Rate [Pending], Glucose Level [Pending], Calcium Level [Pending], Total Bilirubin [Pending], Aspartate Amino Transf (AST/SGOT) [Pending], Alanine Aminotransferase (ALT/SGPT) [Pending] , Alkaline Phosphatase [Pending], Total Protein [Pending], Albumin [Pending], Globulin [Pending] Height (Feet): 5 Height (Inches): 5.00 Weight (Pounds): 184 General Appearance: alert EENT: normal ENT inspection Neck: supple Cardiovascular: normal rate Respiratory/Chest: decreased breath sounds Abdomen: normal bowel sounds, non tender, soft Extremities: non-tender Regino Lugo MD Aug 25, 2019 06:34
[2019-08-25 06:36] LABS: BASOPHILS % (AUTO) 1.2 % (0.0-2.0); EOSINOPHILS % (AUTO) 0.5 % (0.0-3.0); HEMATOCRIT 34.1 % (42.0-52.0); LYMPHOCYTES % (AUTO) 17.5 % (20.0-45.0); MEAN CORPUSCULAR VOLUME 89 FL (80-99); MONOCYTES % (AUTO) 10.7 % (1.0-10.0); NEUTROPHILS % (AUTO) 70.1 % (45.0-75.0); PLATELET COUNT 206 K/UL (150-450); RED BLOOD COUNT 3.84 M/UL (4.70-6.10); RED CELL DISTRIBUTION WIDTH 12.1 % (11.6-14.8); WHITE BLOOD COUNT 10.6 K/UL (4.8-10.8)
[2019-08-25 07:03] LABS: ALANINE AMINOTRANSFERASE 84 U/L (12-78); ALBUMIN 2.2 G/DL (3.4-5.0); ALBUMIN/GLOBULIN RATIO 0.6 (1.0-2.7); ALKALINE PHOSPHATASE 254 U/L (46-116); ANION GAP 9 mmol/L (5-15); ASPARTATE AMINO TRANSFERASE 51 U/L (15-37); BILIRUBIN,TOTAL 0.8 MG/DL (0.2-1.0); BLOOD UREA NITROGEN 17 mg/dL (7-18); CALCIUM 7.9 MG/DL (8.5-10.1); CARBON DIOXIDE 27 MMOL/L (21-32); CHLORIDE 111 MMOL/L (98-107); CREATININE 0.8 MG/DL (0.55-1.30); POTASSIUM 3.5 MMOL/L (3.5-5.1); SODIUM 147 MMOL/L (136-145)
[2019-08-25] MEDS ORDERED: Lidocaine 1% 10mg/ml/Epi 0.005mg/ml 30ml vial INJ ONE (08:45)
[2019-08-25] MEDS ORDERED: Iothalamate Meglumine 60% 30ML INJ ONE (08:45)
[2019-08-25] MEDS ORDERED: Rocuronium Bromide 50mg/5ml Inj IV ONE (08:50)
[2019-08-25] MEDS ORDERED: Succinylcholine 20mg/ml 10ml vial ONE (08:50)
[2019-08-25] MEDS: SIMETHICONE 80 MG PO SCH ×3 (09:00→17:56)
[2019-08-25] MEDS: Montelukast 10mg tablet ORAL SCH (09:00)
[2019-08-25] MEDS: Lactobacillus-GG tablet ORAL SCH (09:00)
--- NOTE | 2019-08-25 09:05 | General Progress Note ---
Assessment/Plan Status: unchanged Assessment/Plan: cholecystitis gallstones abdominal pain s/p ERCP PLAN NPO possible surgery iv hydration impression, plan, and exam edited and reviewed in detail care discussed with RN Subjective Allergies: Coded Allergies: No Known Allergies (Unverified , 08/20/19) Subjective care noted possible surgery today Objective Last 24 Hour Vital Signs Date Time Temp Pulse Resp B/P (MAP) Pulse Ox O2 Delivery O2 Flow Rate FiO2 08/25/19 08:00 98.8 46 20 149/69 (95) 98 08/25/19 04:00 98.3 50 18 142/64 (90) 98 08/24/19 23:52 98.9 50 18 139/62 (87) 97 08/24/19 21:00 Room Air 08/24/19 20:00 99.8 56 18 145/68 (93) 96 08/24/19 16:45 98.8 53 20 138/68 (91) 99 08/24/19 15:45 98.5 53 20 134/69 (90) 99 08/24/19 14:45 99.1 54 20 137/68 (91) 97 08/24/19 14:15 98.6 53 20 133/65 (87) 98 08/24/19 13:45 99.6 54 20 131/65 (87) 99 08/24/19 13:20 56 17 130/68 98 Nasal Cannula 3 08/24/19 13:10 50 21 133/77 98 Nasal Cannula 3 08/24/19 13:00 58 19 135/74 98 Simple Mask 6 08/24/19 12:55 50 20 153/74 98 Simple Mask 6 08/24/19 12:45 56 23 143/76 100 Simple Mask 6 08/24/19 12:45 61 18 99 08/24/19 12:44 56 16 99 08/24/19 12:40 56 22 145/80 99 Simple Mask 6 08/24/19 12:37 98.6 60 20 146/78 99 Simple Mask 6 Intake and Output 08/24/19 08/25/19 19:00 07:00 Intake Total 1360 ml 100 ml Output Total 200 ml 1000 ml Balance 1160 ml -900 ml IV Total 1360 ml 100 ml Output Urine Total 200 ml 1000 ml Estimated Blood Loss 0 ml # Voids 1 1 Laboratory Tests 08/25/19 04:40: White Blood Count 10.6, Red Blood Count 3.84L, Hemoglobin 12.0L, Hematocrit 34.1L, Mean Corpuscular Volume 89, Mean Corpuscular Hemoglobin 31.2H, Mean Corpuscular Hemoglobin Concent 35.1, Red Cell Distribution Width 12.1, Platelet Count 206, Mean Platelet Volume 5.7L, Neutrophils (%) (Auto) 70.1, Lymphocytes ( %) (Auto) 17.5L, Monocytes (%) (Auto) 10.7H, Eosinophils (%) (Auto) 0.5, Basophils (%) (Auto) 1.2, Sodium Level 147H, Potassium Level 3.5, Chloride Level 111H, Carbon Dioxide Level 27, Anion Gap 9, Blood Urea Nitrogen 17, Creatinine 0.8, Estimat Glomerular Filtration Rate > 60, Glucose Level 93, Calcium Level 7.9L, Total Bilirubin 0.8, Aspartate Amino Transf (AST/SGOT) 51H, Alanine Aminotransferase (ALT/SGPT) 84H, Alkaline Phosphatase 254H, Total Protein 6.1L, Albumin 2.2L, Globulin 3.9, Albumin/Globulin Ratio 0.6L Height (Feet): 5 Height (Inches): 5.00 Weight (Pounds): 184 Objective WDWN NAD clear breath sounds bilaterally without rhonchi or wheeze [id number] without MRG NABS tender RUQ no CCE nonfocal Aaron Cordova MD Aug 25, 2019 09:05
[2019-08-25] MEDS ORDERED: fentaNYL 100 mcg/2 mL IV ONE (09:09)
[2019-08-25] MEDS ORDERED: Midazolam 2mg/2ml Inj ONE (09:10)
[2019-08-25] MEDS ORDERED: Lidocaine 1% MPF 10mg/ml 5ml ONE (09:13)
[2019-08-25] MEDS ORDERED: Propofol 200mg/20ml IV ONE (09:13)
[2019-08-25] MEDS ORDERED: Sterile Water Irrig 1000ml IRRIG ONE (09:30)
[2019-08-25] MEDS ORDERED: NS Irrig 1000ml ONE (09:30)
[2019-08-25] MEDS ORDERED: Neostigmine 1mg/ml 10ml Inj ONE (09:30)
[2019-08-25] MEDS ORDERED: LR 1000ml ONE (09:30)
[2019-08-25] MEDS ORDERED: Morphine Sulfate 10mg/ml Inj ONE (10:14)
[2019-08-25] MEDS ORDERED: Glycopyrrolate 0.2mg/ml 1ml Vial ONE (10:16)
[2019-08-25] MEDS ORDERED: Ketorolac 30mg Inj ONE (10:16)
[2019-08-25] MEDS ORDERED: Sodium Chloride 10ml vial INJ ONE (10:16)
[2019-08-25] MEDS ORDERED: NS Irrig 1000ml IRRIG ONE (10:18)
[2019-08-25] MEDS ORDERED: LR 1000ml 1,000 ML IVLG SCH (10:33)
--- NOTE | 2019-08-25 10:33 | Anethesia Preoperative Eval ---
Anesthesia Pre-op PMH/ROS General Date of Evaluation: Aug 25, 2019 Time of Evaluation: 09:10 Anesthesiologist: Harpreet ASA Score: ASA 2 Mallampati Score Class I : Soft palate, uvula, fauces, pillars visible Class II: Soft palate, uvula, fauces visible Class III: Soft palate, base of uvula visible Class IV: Only hard plate visible Mallampati Classification: Class II Surgeon: Amanda Diagnosis: Chlecystitis Surgical Procedure: Lap. cholecystectmy Anesthesia History: none Family History: no anesthesia problems Allergies: Coded Allergies: No Known Allergies (Unverified , 08/20/19) Medications: see eMAR Patient NPO?: Yes NPO Date: Aug 24, 2019 NPO Time: 0000 Past Medical History Cardiovascular: Reports: HTN - borderline; Denies: CAD, [place], valve dz, arrhythmia, other Pulmonary: Reports: asthma - mild; Denies: COPD, VIELKA, other Gastrointestinal/Genitourinary: Reports: GERD, other - BPH; Denies: CRI, ESRD Neurologic/Psychiatric: Denies: dementia, CVA, depression/anxiety, TIA, other Endocrine: Denies: DM, hypothyroidism, steroids, other HEENT: Denies: cataract (L), cataract (R), glaucoma, [place]ET (L), UNALAKLEET (R), other Hematology/Immune: Denies: anemia, DVT, bleeding disorder, other Musculoskeletal/Integumentary: Denies: OA, RA, DJD, DDD, edema, other Other: other - verweight PMH Narrative: as above admitted for recurrent abdominal pain PSxH Narrative: none Anesthesia Pre-op Phys. Exam Physician Exam Last Vital Signs Date Time Temp Pulse Resp B/P (MAP) Pulse Ox O2 Delivery O2 Flow Rate FiO2 08/25/19 09:00 Room Air 08/25/19 08:00 98.8 46 20 149/69 (95) 98 08/24/19 13:20 3 Constitutional: NAD Neurologic: CN 2-12 intact Cardiovascular: RRR, no M/R/G Respiratory: CTA Gastrointestinal: other - slightly tender on palpation Airway Exam Mallampati Score: Class II MO: full Neck: flexible ROM: full Teeth: missing Dentures: no upper, no lower Anesthesia Pre-op A/P Labs Hematology Test 08/25/19 04:40 White Blood Count 10.6 K/UL (4.8-10.8) Red Blood Count 3.84 M/UL (4.70-6.10) L Hemoglobin 12.0 G/DL (14.2-18.0) L Hematocrit 34.1 % (42.0-52.0) L Mean Corpuscular Volume 89 FL (80-99) Mean Corpuscular Hemoglobin 31.2 PG (27.0-31.0) H Mean Corpuscular Hemoglobin Concent 35.1 G/DL (32.0-36.0) Red Cell Distribution Width 12.1 % (11.6-14.8) Platelet Count 206 K/UL (150-450) Mean Platelet Volume 5.7 FL (6.5-10.1) L Neutrophils (%) (Auto) 70.1 % (45.0-75.0) Lymphocytes (%) (Auto) 17.5 % (20.0-45.0) L Monocytes (%) (Auto) 10.7 % (1.0-10.0) H Eosinophils (%) (Auto) 0.5 % (0.0-3.0) Basophils (%) (Auto) 1.2 % (0.0-2.0) Chemistry Test 08/25/19 04:40 Sodium Level 147 MMOL/L (136-145) H Potassium Level 3.5 MMOL/L (3.5-5.1) Chloride Level 111 MMOL/L (98-107) H Carbon Dioxide Level 27 MMOL/L (21-32) Anion Gap 9 mmol/L (5-15) Blood Urea Nitrogen 17 mg/dL (7-18) Creatinine 0.8 MG/DL (0.55-1.30) Estimat Glomerular Filtration Rate > 60 mL/min (>60) Glucose Level 93 MG/DL (74-106) Calcium Level 7.9 MG/DL (8.5-10.1) L Total Bilirubin 0.8 MG/DL (0.2-1.0) Aspartate Amino Transf (AST/SGOT) 51 U/L (15-37) H Alanine Aminotransferase (ALT/SGPT) 84 U/L (12-78) H Alkaline Phosphatase 254 U/L (46-116) H Total Protein 6.1 G/DL (6.4-8.2) L Albumin 2.2 G/DL (3.4-5.0) L Globulin 3.9 g/dL Albumin/Globulin Ratio 0.6 (1.0-2.7) L Risk Assessment & Plan Assessment: ASA 2 Plan: GA with ETT Status Change Before Surgery: No Pre-Antibiotics Drug: Ancef 1gr Given Within 1 Hr of Incision: Yes Time Given: 10:02 Joseph Beauchamp MD Aug 25, 2019 10:33
[2019-08-25] MEDS ORDERED: Ketorolac 30mg Inj IV PRN (10:45)
[2019-08-25] MEDS ORDERED: Hydromorphone 0.5mg/0.5ml inj IVP PRN (10:45)
[2019-08-25] MEDS ORDERED: Meperidine 25mg/0.5ml Inj (FOR RIGORS ONLY) IV PRN (10:45)
[2019-08-25] MEDS ORDERED: Surgicel 4in x 8in TOPIC ONE (10:52)
--- NOTE | 2019-08-25 11:03 | Diagnostic Imaging Report ---
INDICATION: Pain, intraoperative TECHNIQUE: Intraoperative imaging Fluoroscopy time: 227.6 seconds Total dose: 1.88 mGym2 Total number of images: 4 COMPARISON: Reference made to MRCP 08/21/2019 FINDINGS: Intraoperative images demonstrate what appears to be a filling defect in the upstream common bile duct. Bile ducts are nondilated. Subsequent images demonstrate deployment of stone extraction balloon IMPRESSION: Intraoperative imaging, as described
--- NOTE | 2019-08-25 12:06 | Immediate Post-Op Evaluation ---
Immediate Post-Op Evalulation Immediate Post-Op Evalulation Procedure: Laparoscopic cholecystectomy Date of Evaluation: Aug 25, 2019 Time of Evaluation: 12:05 IV Fluids: 1000 Blood Products: none Estimated Blood Loss: 150 Urinary Output: none Blood Pressure Systolic: 116 Blood Pressure Diastolic: 68 Pulse Rate: 74 Respiratory Rate: 22 O2 Sat by Pulse Oximetry: 98 Temperature (Fahrenheit): 98.5 Pain Score (1-10): 1 Nausea: No Vomiting: No Complications none Patient Status: reacts, patent, extubated, none Hydration Status: adequate Joseph Beauchamp MD Aug 25, 2019 12:06
--- NOTE | 2019-08-25 12:39 | Brief Operative Note ---
Immediate Post Operative Note Operative Note Pre-op Diagnosis: acute cholecystitis with choledocholithiasis Procedure: lap liban Post-op Diagnosis: gangrenous necrotic cholecystectomy Post-op Diagnosis: same as pre-op plus Surgeon: [place] Anesthesiologist: bess Anesthesia: general, local Specimen: yes Complications: none Condition: stable Fluids: see records Estimated Blood Loss: volume - 50 Drains: none Implant(s) used?: No Lopez Zuniga Aug 25, 2019 12:39
--- NOTE | 2019-08-25 12:43 | 48 Hour Post Anesthesia Eval ---
Post Anesthesia Evaluation Procedure: Laparoscopic cholecystectomy Date of Evaluation: Aug 25, 2019 Time of Evaluation: 12:42 Blood Pressure Systolic: 118 0: 64 Pulse Rate: 67 Respiratory Rate: 18 Temperature (Fahrenheit): 97.8 O2 Sat by Pulse Oximetry: 99 Airway: patent Nausea: No Vomiting: No Pain Intensity: 2 Cardiopulmonary Status: stable Mental Status/LOC: patient returned to baseline Follow-up Care/Observations: n/a Post-Anesthesia Complications: none Follow-up care needed: ready to discharge Joseph Beauchamp MD Aug 25, 2019 12:43
[2019-08-25] MEDS ORDERED: Morphine Sulfate 4mg/ml Inj (IV USE ONLY) IVP PRN (12:45)
[2019-08-25] MEDS ORDERED: DiphenhydrAMINE 25mg Tab ORAL PRN (12:45)
[2019-08-25] MEDS ORDERED: Sennosides 8.6mg tab ORAL PRN (12:45)
[2019-08-25] MEDS: Docusate 100mg cap ORAL SCH (17:56)
--- NOTE | 2019-08-25 20:44 | Operative Note - Dictated ---
DATE OF OPERATION: 08/25/2019 PREOPERATIVE DIAGNOSIS: Acute cholecystitis. POSTOPERATIVE DIAGNOSIS: Gangrenous, necrotic, infected cholecystitis. OPERATION PERFORMED: 1. Laparoscopic cholecystectomy. 2. Modifier 22, difficult procedure. ATTENDING SURGEON: Lopez Zuniga MD. ADVENTURE EDUCATION TEACHER: None. ANESTHESIOLOGIST: Joseph Beauchamp MD. ANESTHESIA: General GETA plus local. ESTIMATED BLOOD LOSS: 50 mL. IV FLUIDS: Please see anesthesia records. COMPLICATIONS: None. DRAINS: None. COUNTS: Sponge and needle counts correct x2. WOUND CLASSIFICATION: Class 3. ANTIBIOTICS: The patient on scheduled IV antibiotics for acute active inflammatory infectious process. SPECIMEN: Gallbladder, sludge, stones sent to Pathology for review. INDICATIONS FOR PROCEDURE: This is a 69-year-old male who presented to [facility] with worsening right upper quadrant abdominal pain. The patient has a history of cholecystitis and it was recommended by his primary care physician for considerations of cholecystectomy in the past, but did not have it and presented with pain, abnormal labs, elevated LFTs, and identified to have acute cholecystitis with choledocholithiasis. The patient had an ERCP where stones were evacuated and the duct was cleared. Following this, the patient persisted to have abdominal pain throughout the hospitalization, significant leukocytosis, and was not improving. Therefore, cholecystectomy was also indicated and recommended. Risks, benefits, and alternatives were discussed with the patient in detail, who expressed understanding and consented to surgery. OPERATIVE NOTE: The patient was taken to the operating room and placed on the operating table in supine position with bilateral arms out. All bony prominences were well padded. SCDs were placed. Preoperative time-out was taken to identifying the patient, procedure, operative site, and surgical staff. General anesthesia was induced. The patient was intubated. Abdomen was clipped, prepped, and draped in standard surgical fashion. Local anesthetic was infiltrated throughout all port sites for the patient's comfort. An infraumbilical incision was made and carried down through the subcutaneous tissue to the fascia. The fascia was elevated and incised. Entry into the abdomen was obtained using open Nikia technique without complication. A 12 mm Nikia trocar was inserted and the abdomen was insufflated to 12 to 15 mmHg. Laparoscope was inserted and the abdomen was inspected. No injury from initial trocar placement noted. Upon placing the laparoscope in the abdomen, it was clearly identified there was significant amount of inflammatory area in the right upper quadrant with omentum draped directly over the gallbladder. Secondary trocars were placed under direct visualization beginning with a 12 mm subxiphoid followed by two 5 mm right subcostal. The omentum was gently dissected off the gallbladder. It was very thickened, edematous, and inflammatory. Once this was completed, a necrotic gangrenous gallbladder was identified with some purulent fluid around it. The dome of the gallbladder was grasped and very friable. At this time, decision was made to evacuate the gallbladder. A laparoscopic needle was used and the gallbladder was decompressed. The gallbladder was then grasped and slowly dissected down to the infundibulum. The infundibulum was incised and fully dissected out. In dissecting medially, the cystic artery was identified with pulsatile bleeding, clipped and divided. Following this, the gallbladder was released from its lateral and medial attachments and was taken down using the top-down technique. The reasoning for this was that there was significant inflammation and inflammatory tissue identified throughout the gallbladder and necrotic gangrenous gallbladder with notable infection. The tissues were very friable and grasping the gallbladder at the dome and retracting over the liver would only cause more tearing of the necrotic gallbladder. Furthermore, there was significant inflammatory tissue and impacted stone noted in the cystic duct junction would be critical and difficult. Therefore, top-down technique was utilized for the patient's safety. The gallbladder was taken down from the top down to the infundibulum. The infundibulum was slowly dissected down and the cystic duct was identified, clipped and divided. The gallbladder along with stones was placed in endoscopic retrieval bag and removed using subxiphoid port. The gallbladder bed was irrigated and suctioned clear. Hemostasis was obtained from the gallbladder bed using electrocautery. Mild oozing identified from the surrounding inflammatory tissues. The right upper quadrant was irrigated and suctioned with four liters of normal saline until clear. Surgicel was left in the liver bed. No active bleeding or leakage of bile was identified at the end of the procedure. Closure was adequate and satisfactory. The patient tolerated the procedure well. Abdomen was desufflated and secondary trocars were removed under direct visualization. The umbilical trocar site was removed. The infraumbilical and subxiphoid port site fascia was reapproximated using 0 Vicryl [id number] sutures. Remaining skin incisions were reapproximated using 4-0 Monocryl subcuticular interrupted sutures. Steri-Strips and dressings were applied. The patient tolerated the procedure well, was extubated, and taken to postanesthesia care unit in stable condition. Of note, modifier 22 was used in this procedure as this was a very difficult procedure given the gangrenous necrotic gallbladder that was infected. A significant longer than usual time was required for gentle safe dissection laparoscopically to ensure the patient's safety and the significant difficulty in the procedure. Lopez Zuniga M.D. DR: Adrienne JOB#: [id number] CC:
[2019-08-26] VITALS: BP 121/77
[2019-08-26 04:00] VITALS: BP 153/75
[2019-08-26] MEDS: Piperacillin/Tazobactam 3.375 GM in NS 110 ML IVPB SCH ×3 (05:37→21:09)
[2019-08-26 05:42] LABS: BASOPHILS % (AUTO) 1.1 % (0.0-2.0); EOSINOPHILS % (AUTO) 0.5 % (0.0-3.0); HEMATOCRIT 34.4 % (42.0-52.0); LYMPHOCYTES % (AUTO) 13.7 % (20.0-45.0); MEAN CORPUSCULAR VOLUME 88 FL (80-99); MONOCYTES % (AUTO) 7.8 % (1.0-10.0); NEUTROPHILS % (AUTO) 76.9 % (45.0-75.0); PLATELET COUNT 244 K/UL (150-450); RED CELL DISTRIBUTION WIDTH 11.9 % (11.6-14.8); WHITE BLOOD COUNT 10.5 K/UL (4.8-10.8)
[2019-08-26 06:00] LABS: ALANINE AMINOTRANSFERASE 108 U/L (12-78); ALBUMIN 2.2 G/DL (3.4-5.0); ALBUMIN/GLOBULIN RATIO 0.6 (1.0-2.7); ALKALINE PHOSPHATASE 459 U/L (46-116); ANION GAP 7 mmol/L (5-15); ASPARTATE AMINO TRANSFERASE 128 U/L (15-37); BILIRUBIN,TOTAL 1.5 MG/DL (0.2-1.0); BLOOD UREA NITROGEN 14 mg/dL (7-18); CALCIUM 7.8 MG/DL (8.5-10.1); CARBON DIOXIDE 29 MMOL/L (21-32); CHLORIDE 109 MMOL/L (98-107); CREATININE 0.9 MG/DL (0.55-1.30); SODIUM 145 MMOL/L (136-145)
[2019-08-26 07:03] LABS: BILIRUBIN,DIRECT 0.9 MG/DL (0.0-0.3)
[2019-08-26 08:00] VITALS: BP 159/85
--- NOTE | 2019-08-26 09:18 | General Progress Note ---
Assessment/Plan Problem List: (1) Choledocholithiasis ICD Codes: K80.50 - Calculus of bile duct without cholangitis or cholecystitis without obstruction SNOMED: 686639757 (2) Cholecystitis ICD Codes: K81.9 - Cholecystitis, unspecified SNOMED: 48770112 (3) UTI (urinary tract infection) ICD Codes: N39.0 - Urinary tract infection, site not specified SNOMED: 34337487 Qualifiers: Qualified Codes: N30.01 - Acute cystitis with hematuria Status: unchanged Assessment/Plan: s/p ERCP s/p cholecystectomy POD #1 elevated LFTS d/w surg will monitor consider repeat ercp if needed repeat labs will fu Subjective ROS Limited/Unobtainable: Yes Allergies: Coded Allergies: No Known Allergies (Unverified , 08/20/19) Objective Last 24 Hour Vital Signs Date Time Temp Pulse Resp B/P (MAP) Pulse Ox O2 Delivery O2 Flow Rate FiO2 08/26/19 08:00 99.3 61 18 159/85 (109) 94 08/26/19 04:00 98.6 57 20 153/75 (101) 95 08/26/19 00:00 97.3 61 20 121/77 (92) 97 08/25/19 21:00 Room Air 08/25/19 20:00 98.0 68 20 133/82 (99) 95 08/25/19 18:55 97.5 67 20 133/76 (95) 98 08/25/19 16:00 99.3 66 20 130/77 (94) 98 08/25/19 14:30 99.2 64 18 120/67 (84) 96 08/25/19 13:30 97.6 66 16 113/63 96 Nasal Cannula 3 66 08/25/19 13:30 97.9 67 18 118/66 (83) 97 08/25/19 13:15 61 15 115/64 96 Nasal Cannula 3 61 08/25/19 13:00 62 14 112/62 96 Nasal Cannula 3 62 08/25/19 12:45 67 18 123/66 96 Nasal Cannula 3 67 08/25/19 12:43 67 18 99 08/25/19 12:30 65 17 116/63 95 Nasal Cannula 3 65 08/25/19 12:20 66 14 120/60 96 Nasal Cannula 3 66 08/25/19 12:15 69 17 121/64 98 Simple Mask 6 69 08/25/19 12:10 72 20 117/57 97 Simple Mask 6 72 08/25/19 12:06 74 22 98 08/25/19 12:00 81 18 115/61 99 Simple Mask 6 81 08/25/19 11:55 98.0 78 22 116/66 98 Simple Mask 6 78 Intake and Output 08/25/19 08/26/19 19:00 07:00 Intake Total 1290 ml 400 ml Output Total 250 ml Balance 1040 ml 400 ml Intake Oral 580 ml 300 ml IV Total 710 ml 100 ml Output Urine Total 250 ml # Voids 1 4 Laboratory Tests 08/26/19 04:35: White Blood Count 10.5, Red Blood Count 3.90L, Hemoglobin 12.0L, Hematocrit 34.4L, Mean Corpuscular Volume 88, Mean Corpuscular Hemoglobin 30.7, Mean Corpuscular Hemoglobin Concent 34.8, Red Cell Distribution Width 11.9, Platelet Count 244, Mean Platelet Volume 5.2L, Neutrophils (%) (Auto) 76.9H, Lymphocytes (%) (Auto) 13.7L, Monocytes (%) (Auto) 7.8, Eosinophils (%) (Auto) 0.5, Basophils (%) (Auto) 1.1, Sodium Level 145, Potassium Level 4.0, Chloride Level 109H, Carbon Dioxide Level 29, Anion Gap 7, Blood Urea Nitrogen 14, Creatinine 0.9, Estimat Glomerular Filtration Rate > 60, Glucose Level 133H, Calcium Level 7.8L, Total Bilirubin 1.5H, Direct Bilirubin 0.9H, Aspartate Amino Transf (AST/ SGOT) 128H, Alanine Aminotransferase (ALT/SGPT) 108H, Alkaline Phosphatase 459H , Total Protein 6.1L, Albumin 2.2L, Globulin 3.9, Albumin/Globulin Ratio 0.6L Height (Feet): 5 Height (Inches): 5.00 Weight (Pounds): 206 General Appearance: no apparent distress EENT: normal ENT inspection Neck: supple Cardiovascular: normal rate Respiratory/Chest: decreased breath sounds Abdomen: soft Extremities: non-tender Regino Lugo MD Aug 26, 2019 09:18
[2019-08-26] MEDS: Montelukast 10mg tablet ORAL SCH (09:36)
[2019-08-26] MEDS: Lactobacillus-GG tablet ORAL SCH (09:36)
[2019-08-26] MEDS: SIMETHICONE 80 MG PO SCH ×3 (09:36→17:18)
[2019-08-26] MEDS: Docusate 100mg cap ORAL SCH ×2 (09:36→17:18)
[2019-08-26] MEDS: Milk of Magnesia 30ml Ud ORAL PRN (09:36)
--- NOTE | 2019-08-26 10:33 | General Progress Note ---
Assessment/Plan Status: unchanged Assessment/Plan: cholecystitis gallstones abdominal pain s/p ERCP post op liban constipation PLAN laxatives postop care gi and gs clearance monitor LFTs iv hydration impression, plan, and exam edited and reviewed in detail care discussed with RN Subjective Allergies: Coded Allergies: No Known Allergies (Unverified , 08/20/19) Subjective care noted postop has significant constipation Objective Last 24 Hour Vital Signs Date Time Temp Pulse Resp B/P (MAP) Pulse Ox O2 Delivery O2 Flow Rate FiO2 08/26/19 08:00 99.3 61 18 159/85 (109) 94 08/26/19 04:00 98.6 57 20 153/75 (101) 95 08/26/19 00:00 97.3 61 20 121/77 (92) 97 08/25/19 21:00 Room Air 08/25/19 20:00 98.0 68 20 133/82 (99) 95 08/25/19 18:55 97.5 67 20 133/76 (95) 98 08/25/19 16:00 99.3 66 20 130/77 (94) 98 08/25/19 14:30 99.2 64 18 120/67 (84) 96 08/25/19 13:30 97.6 66 16 113/63 96 Nasal Cannula 3 66 08/25/19 13:30 97.9 67 18 118/66 (83) 97 08/25/19 13:15 61 15 115/64 96 Nasal Cannula 3 61 08/25/19 13:00 62 14 112/62 96 Nasal Cannula 3 62 08/25/19 12:45 67 18 123/66 96 Nasal Cannula 3 67 08/25/19 12:43 67 18 99 08/25/19 12:30 65 17 116/63 95 Nasal Cannula 3 65 08/25/19 12:20 66 14 120/60 96 Nasal Cannula 3 66 08/25/19 12:15 69 17 121/64 98 Simple Mask 6 69 08/25/19 12:10 72 20 117/57 97 Simple Mask 6 72 08/25/19 12:06 74 22 98 08/25/19 12:00 81 18 115/61 99 Simple Mask 6 81 08/25/19 11:55 98.0 78 22 116/66 98 Simple Mask 6 78 Intake and Output 08/25/19 08/26/19 19:00 07:00 Intake Total 1290 ml 400 ml Output Total 250 ml Balance 1040 ml 400 ml Intake Oral 580 ml 300 ml IV Total 710 ml 100 ml Output Urine Total 250 ml # Voids 1 4 Laboratory Tests 08/26/19 04:35: White Blood Count 10.5, Red Blood Count 3.90L, Hemoglobin 12.0L, Hematocrit 34.4L, Mean Corpuscular Volume 88, Mean Corpuscular Hemoglobin 30.7, Mean Corpuscular Hemoglobin Concent 34.8, Red Cell Distribution Width 11.9, Platelet Count 244, Mean Platelet Volume 5.2L, Neutrophils (%) (Auto) 76.9H, Lymphocytes (%) (Auto) 13.7L, Monocytes (%) (Auto) 7.8, Eosinophils (%) (Auto) 0.5, Basophils (%) (Auto) 1.1, Sodium Level 145, Potassium Level 4.0, Chloride Level 109H, Carbon Dioxide Level 29, Anion Gap 7, Blood Urea Nitrogen 14, Creatinine 0.9, Estimat Glomerular Filtration Rate > 60, Glucose Level 133H, Calcium Level 7.8L, Total Bilirubin 1.5H, Direct Bilirubin 0.9H, Aspartate Amino Transf (AST/ SGOT) 128H, Alanine Aminotransferase (ALT/SGPT) 108H, Alkaline Phosphatase 459H , Total Protein 6.1L, Albumin 2.2L, Globulin 3.9, Albumin/Globulin Ratio 0.6L Height (Feet): 5 Height (Inches): 5.00 Weight (Pounds): 206 Objective WDWN NAD clear breath sounds bilaterally without rhonchi or wheeze [id number] without MRG NABS tender RUQ no CCE nonfocal Aaron Cordova MD Aug 26, 2019 10:33
[2019-08-26 12:00] VITALS: BP 150/72
--- NOTE | 2019-08-26 14:10 | Surgery Progress Note ---
Surgery Progress Note Subjective Procedure Performed lap liban Additional Comments incisional pain no n/v/f/c labs noted lft's elevated Objective Last 24 Hour Vital Signs Date Time Temp Pulse Resp B/P (MAP) Pulse Ox O2 Delivery O2 Flow Rate FiO2 08/26/19 12:00 98.2 62 18 150/72 (98) 94 08/26/19 09:00 Room Air 08/26/19 08:00 99.3 61 18 159/85 (109) 94 08/26/19 04:00 98.6 57 20 153/75 (101) 95 08/26/19 00:00 97.3 61 20 121/77 (92) 97 08/25/19 21:00 Room Air 08/25/19 20:00 98.0 68 20 133/82 (99) 95 08/25/19 18:55 97.5 67 20 133/76 (95) 98 08/25/19 16:00 99.3 66 20 130/77 (94) 98 08/25/19 14:30 99.2 64 18 120/67 (84) 96 I&O Intake and Output 08/25/19 08/26/19 19:00 07:00 Intake Total 1290 ml 400 ml Output Total 250 ml Balance 1040 ml 400 ml Intake Oral 580 ml 300 ml IV Total 710 ml 100 ml Output Urine Total 250 ml # Voids 1 4 Dressing: dry Wound: clean Cardiovascular: RSR Respiratory: clear Abdomen: soft, distended - gaseous, tenderness - incisional , decreased bowel sounds Extremities: no edema, no tenderness, no cyanosis Laboratory Tests Test 08/26/19 04:35 White Blood Count 10.5 K/UL (4.8-10.8) Red Blood Count 3.90 M/UL (4.70-6.10) L Hemoglobin 12.0 G/DL (14.2-18.0) L Hematocrit 34.4 % (42.0-52.0) L Mean Corpuscular Volume 88 FL (80-99) Mean Corpuscular Hemoglobin 30.7 PG (27.0-31.0) Mean Corpuscular Hemoglobin Concent 34.8 G/DL (32.0-36.0) Red Cell Distribution Width 11.9 % (11.6-14.8) Platelet Count 244 K/UL (150-450) Mean Platelet Volume 5.2 FL (6.5-10.1) L Neutrophils (%) (Auto) 76.9 % (45.0-75.0) H Lymphocytes (%) (Auto) 13.7 % (20.0-45.0) L Monocytes (%) (Auto) 7.8 % (1.0-10.0) Eosinophils (%) (Auto) 0.5 % (0.0-3.0) Basophils (%) (Auto) 1.1 % (0.0-2.0) Sodium Level 145 MMOL/L (136-145) Potassium Level 4.0 MMOL/L (3.5-5.1) Chloride Level 109 MMOL/L (98-107) H Carbon Dioxide Level 29 MMOL/L (21-32) Anion Gap 7 mmol/L (5-15) Blood Urea Nitrogen 14 mg/dL (7-18) Creatinine 0.9 MG/DL (0.55-1.30) Estimat Glomerular Filtration Rate > 60 mL/min (>60) Glucose Level 133 MG/DL (74-106) H Calcium Level 7.8 MG/DL (8.5-10.1) L Total Bilirubin 1.5 MG/DL (0.2-1.0) H Direct Bilirubin 0.9 MG/DL (0.0-0.3) H Aspartate Amino Transf (AST/SGOT) 128 U/L (15-37) H Alanine Aminotransferase (ALT/SGPT) 108 U/L (12-78) H Alkaline Phosphatase 459 U/L (46-116) H Total Protein 6.1 G/DL (6.4-8.2) L Albumin 2.2 G/DL (3.4-5.0) L Globulin 3.9 g/dL Albumin/Globulin Ratio 0.6 (1.0-2.7) L Assessment Post-op Diagnosis gangrenous necrotic cholecystectomy Plan Problems: (1) Cholecystitis Assessment & Plan: s/p lap liban 08/24 for infected gangrene gallbladder recovering on abx does not want to ambulate because of pain pain rx reviewed and will be given incentive spirometry lft's noted likely reactive from inflammation possible stone dislodged into duct? trend labs not ready for d/c will need oral abx on d/c Case discussed with GI MRCP reviewed with radiologist cbd stone stable afebrile, HD Stable labs noted npo iv fluids iv abx AM labs ERCP then cholecystectomy OR tomorrow thank you will follow with recs Liver: Unremarkable. Gallbladder: Distended gallbladder. No definite shadowing cholelithiasis. Mildly prominent 4 mm gallbladder wall. Possible small pericholecystic fluid. Correlate clinically for cholecystitis. Common bile duct: CBD 6 mm. Pancreas: Pancreas obscured. Kidneys: No hydronephrosis. Spleen: Unremarkable. Aorta: Unremarkable as visualized. Inferior vena cava: Unremarkable as visualized. IMPRESSION: Distended gallbladder. No definite shadowing cholelithiasis. Mildly prominent 4 mm gallbladder wall. Possible small pericholecystic fluid. Correlate clinically for cholecystitis. the gallbladder wall is somewhat edematous and the gallbladder is distended. The fat saturated images suggests some infiltration of the pericholecystic fat as well as a small amount of fluid adjacent to the tip of the liver. No filling defects to suggest gallstones are evident in the gallbladder lumen. However, there is a possible 8 mm filling defect in the gallbladder neck. In addition, there is a 7 mm diameter filling defect in the downstream common bile duct. The common bile duct measures 7 mm in diameter. There is no intrahepatic biliary ductal dilatation. The liver, pancreas, spleen, adrenals, kidneys are unremarkable. The prostate is enlarged. There are trace bilateral pleural effusions. Impression: Positive for choledocholithiasis. This results in mild biliary ductal dilatation. Suspect gallbladder neck stone. Mild gallbladder wall edema in some infiltration of the pericholecystic fat raises possibility of acute cholecystitis. Consider hepatobiliary nuclear scan for confirmation if there is high clinical suspicion. Evidence of trace free intraperitoneal fluid Trace bilateral pleural effusions Lopez Zuniga Aug 26, 2019 14:10
[2019-08-26 16:00] VITALS: BP 155/68
[2019-08-26 20:00] VITALS: BP 136/75
[2019-08-27] VITALS: BP 128/73
[2019-08-27 04:00] VITALS: BP 120/84
[2019-08-27] MEDS: Piperacillin/Tazobactam 3.375 GM in NS 110 ML IVPB SCH ×3 (05:46→23:12)
[2019-08-27] MEDS: Milk of Magnesia 30ml Ud ORAL PRN ×2 (05:46→06:14)
[2019-08-27 06:58] LABS: ALANINE AMINOTRANSFERASE 88 U/L (12-78); ALBUMIN 2.3 G/DL (3.4-5.0); ALBUMIN/GLOBULIN RATIO 0.6 (1.0-2.7); ALKALINE PHOSPHATASE 405 U/L (46-116); ANION GAP 7 mmol/L (5-15); ASPARTATE AMINO TRANSFERASE 54 U/L (15-37); BILIRUBIN,TOTAL 0.9 MG/DL (0.2-1.0); BLOOD UREA NITROGEN 12 mg/dL (7-18); CALCIUM 7.9 MG/DL (8.5-10.1); CARBON DIOXIDE 28 MMOL/L (21-32); CHLORIDE 107 MMOL/L (98-107); CREATININE 0.8 MG/DL (0.55-1.30); POTASSIUM 3.5 MMOL/L (3.5-5.1); SODIUM 142 MMOL/L (136-145)
[2019-08-27 07:09] LABS: BASOPHILS % (AUTO) 0.5 % (0.0-2.0); EOSINOPHILS % (AUTO) 1.2 % (0.0-3.0); HEMATOCRIT 35.1 % (42.0-52.0); HEMOGLOBIN 12.3 G/DL (14.2-18.0); LYMPHOCYTES % (AUTO) 14.5 % (20.0-45.0); MEAN CORPUSCULAR VOLUME 87 FL (80-99); MONOCYTES % (AUTO) 6.3 % (1.0-10.0); NEUTROPHILS % (AUTO) 77.5 % (45.0-75.0); PLATELET COUNT 288 K/UL (150-450); RED BLOOD COUNT 4.03 M/UL (4.70-6.10); WHITE BLOOD COUNT 12.8 K/UL (4.8-10.8)
[2019-08-27 08:00] VITALS: BP 135/73
[2019-08-27] MEDS: Lactobacillus-GG tablet ORAL SCH (08:30)
[2019-08-27] MEDS: SIMETHICONE 80 MG PO SCH ×3 (08:30→17:10)
[2019-08-27] MEDS: Montelukast 10mg tablet ORAL SCH (08:30)
[2019-08-27] MEDS: Docusate 100mg cap ORAL SCH ×2 (08:30→17:09)
--- NOTE | 2019-08-27 08:39 | General Progress Note ---
Assessment/Plan Status: unchanged Assessment/Plan: cholecystitis gallstones abdominal pain s/p ERCP post op liban constipation PLAN laxatives postop care ID juaquin corbettbairon gi and gs clearance monitor LFTs iv hydration impression, plan, and exam edited and reviewed in detail care discussed with RN Subjective Allergies: Coded Allergies: No Known Allergies (Unverified , 08/20/19) Subjective care noted postop cultures + from gallbladder on antibiotics has significant constipation Objective Last 24 Hour Vital Signs Date Time Temp Pulse Resp B/P (MAP) Pulse Ox O2 Delivery O2 Flow Rate FiO2 08/27/19 08:00 98.5 62 20 135/73 (93) 95 08/27/19 07:10 Room Air 08/27/19 04:00 97.2 61 20 120/84 (96) 96 08/27/19 00:00 97.3 64 16 128/73 (91) 96 08/26/19 21:00 Room Air 08/26/19 20:00 98.6 62 18 136/75 (95) 97 08/26/19 16:00 98.2 62 16 155/68 (97) 94 08/26/19 12:00 98.2 62 18 150/72 (98) 94 08/26/19 09:00 Room Air Intake and Output 08/26/19 08/27/19 19:00 07:00 Intake Total 720 ml 450.0 ml Balance 720 ml 450.0 ml Intake Oral 500 ml 340 ml IV Total 220 ml 110.0 ml # Voids 2 2 Laboratory Tests 08/27/19 05:35: White Blood Count 12.8H, Red Blood Count 4.03L, Hemoglobin 12.3L, Hematocrit 35.1L, Mean Corpuscular Volume 87, Mean Corpuscular Hemoglobin 30.5, Mean Corpuscular Hemoglobin Concent 35.0, Red Cell Distribution Width 12.0, Platelet Count 288, Mean Platelet Volume 5.6L, Neutrophils (%) (Auto) 77.5H, Lymphocytes (%) (Auto) 14.5L, Monocytes (%) (Auto) 6.3, Eosinophils (%) (Auto) 1.2, Basophils (%) (Auto) 0.5, Sodium Level 142, Potassium Level 3.5, Chloride Level 107, Carbon Dioxide Level 28, Anion Gap 7, Blood Urea Nitrogen 12, Creatinine 0.8, Estimat Glomerular Filtration Rate > 60, Glucose Level 115H, Calcium Level 7.9L, Total Bilirubin 0.9, Aspartate Amino Transf (AST/SGOT) 54H, Alanine Aminotransferase (ALT/SGPT) 88H, Alkaline Phosphatase 405H, Total Protein 6.4, Albumin 2.3L, Globulin 4.1, Albumin/Globulin Ratio 0.6L Height (Feet): 5 Height (Inches): 5.00 Weight (Pounds): 206 Objective WDWN NAD clear breath sounds bilaterally without rhonchi or wheeze [id number] without MRG NABS tender RUQ no CCE nonfocal Aaron Cordova MD Aug 27, 2019 08:39
--- NOTE | 2019-08-27 09:08 | General Progress Note ---
Assessment/Plan Problem List: (1) Choledocholithiasis ICD Codes: K80.50 - Calculus of bile duct without cholangitis or cholecystitis without obstruction SNOMED: 405649039 (2) Cholecystitis ICD Codes: K81.9 - Cholecystitis, unspecified SNOMED: 47418870 (3) UTI (urinary tract infection) ICD Codes: N39.0 - Urinary tract infection, site not specified SNOMED: 98014970 Qualifiers: Qualified Codes: N30.01 - Acute cystitis with hematuria Status: unchanged Assessment/Plan: s/p ERCP s/p cholecystectomy POD #2 elevated LFTS>>> improving d/w surg will monitor consider repeat ercp if needed repeat labs will fu Subjective Allergies: Coded Allergies: No Known Allergies (Unverified , 08/20/19) Objective Last 24 Hour Vital Signs Date Time Temp Pulse Resp B/P (MAP) Pulse Ox O2 Delivery O2 Flow Rate FiO2 08/27/19 08:00 98.5 62 20 135/73 (93) 95 08/27/19 07:10 Room Air 08/27/19 04:00 97.2 61 20 120/84 (96) 96 08/27/19 00:00 97.3 64 16 128/73 (91) 96 08/26/19 21:00 Room Air 08/26/19 20:00 98.6 62 18 136/75 (95) 97 08/26/19 16:00 98.2 62 16 155/68 (97) 94 08/26/19 12:00 98.2 62 18 150/72 (98) 94 Intake and Output 08/26/19 08/27/19 19:00 07:00 Intake Total 720 ml 450.0 ml Balance 720 ml 450.0 ml Intake Oral 500 ml 340 ml IV Total 220 ml 110.0 ml # Voids 2 2 Laboratory Tests 08/27/19 05:35: White Blood Count 12.8H, Red Blood Count 4.03L, Hemoglobin 12.3L, Hematocrit 35.1L, Mean Corpuscular Volume 87, Mean Corpuscular Hemoglobin 30.5, Mean Corpuscular Hemoglobin Concent 35.0, Red Cell Distribution Width 12.0, Platelet Count 288, Mean Platelet Volume 5.6L, Neutrophils (%) (Auto) 77.5H, Lymphocytes (%) (Auto) 14.5L, Monocytes (%) (Auto) 6.3, Eosinophils (%) (Auto) 1.2, Basophils (%) (Auto) 0.5, Sodium Level 142, Potassium Level 3.5, Chloride Level 107, Carbon Dioxide Level 28, Anion Gap 7, Blood Urea Nitrogen 12, Creatinine 0.8, Estimat Glomerular Filtration Rate > 60, Glucose Level 115H, Calcium Level 7.9L, Total Bilirubin 0.9, Aspartate Amino Transf (AST/SGOT) 54H, Alanine Aminotransferase (ALT/SGPT) 88H, Alkaline Phosphatase 405H, Total Protein 6.4, Albumin 2.3L, Globulin 4.1, Albumin/Globulin Ratio 0.6L Height (Feet): 5 Height (Inches): 5.00 Weight (Pounds): 206 General Appearance: no apparent distress EENT: normal ENT inspection Neck: supple Cardiovascular: normal rate Respiratory/Chest: decreased breath sounds Abdomen: normal bowel sounds, non tender, soft Extremities: non-tender Regino Lugo MD Aug 27, 2019 09:08
[2019-08-27 12:00] VITALS: BP 131/73
[2019-08-27 16:00] VITALS: BP 125/69
--- NOTE | 2019-08-27 16:43 | Surgery Progress Note ---
Surgery Progress Note Subjective Procedure Performed lap liban Additional Comments Patient seen exam bedside. States he feels better. No nausea fever chills. Tolerating diet. Passing flatus. Voiding well. Labs noted. LFTs improving. Leukocytosis likely reactive. No nausea vomiting fever chills. Dressings removed Steri-Strips in place wounds clean and dry. Objective Last 24 Hour Vital Signs Date Time Temp Pulse Resp B/P (MAP) Pulse Ox O2 Delivery O2 Flow Rate FiO2 08/27/19 16:00 98.6 81 20 125/69 (87) 96 08/27/19 12:00 99.5 65 20 131/73 (92) 97 08/27/19 08:00 98.5 62 20 135/73 (93) 95 08/27/19 07:10 Room Air 08/27/19 04:00 97.2 61 20 120/84 (96) 96 08/27/19 00:00 97.3 64 16 128/73 (91) 96 08/26/19 21:00 Room Air 08/26/19 20:00 98.6 62 18 136/75 (95) 97 I&O Intake and Output 08/26/19 08/27/19 19:00 07:00 Intake Total 720 ml 450.0 ml Balance 720 ml 450.0 ml Intake Oral 500 ml 340 ml IV Total 220 ml 110.0 ml # Voids 2 2 Dressing: dry Wound: clean Drains: none Cardiovascular: RSR Respiratory: clear Abdomen: soft, non-tender - Incisional, present bowel sounds Extremities: no edema, no tenderness, no cyanosis Laboratory Tests Test 08/27/19 05:35 White Blood Count 12.8 K/UL (4.8-10.8) H Red Blood Count 4.03 M/UL (4.70-6.10) L Hemoglobin 12.3 G/DL (14.2-18.0) L Hematocrit 35.1 % (42.0-52.0) L Mean Corpuscular Volume 87 FL (80-99) Mean Corpuscular Hemoglobin 30.5 PG (27.0-31.0) Mean Corpuscular Hemoglobin Concent 35.0 G/DL (32.0-36.0) Red Cell Distribution Width 12.0 % (11.6-14.8) Platelet Count 288 K/UL (150-450) Mean Platelet Volume 5.6 FL (6.5-10.1) L Neutrophils (%) (Auto) 77.5 % (45.0-75.0) H Lymphocytes (%) (Auto) 14.5 % (20.0-45.0) L Monocytes (%) (Auto) 6.3 % (1.0-10.0) Eosinophils (%) (Auto) 1.2 % (0.0-3.0) Basophils (%) (Auto) 0.5 % (0.0-2.0) Sodium Level 142 MMOL/L (136-145) Potassium Level 3.5 MMOL/L (3.5-5.1) Chloride Level 107 MMOL/L (98-107) Carbon Dioxide Level 28 MMOL/L (21-32) Anion Gap 7 mmol/L (5-15) Blood Urea Nitrogen 12 mg/dL (7-18) Creatinine 0.8 MG/DL (0.55-1.30) Estimat Glomerular Filtration Rate > 60 mL/min (>60) Glucose Level 115 MG/DL (74-106) H Calcium Level 7.9 MG/DL (8.5-10.1) L Total Bilirubin 0.9 MG/DL (0.2-1.0) Aspartate Amino Transf (AST/SGOT) 54 U/L (15-37) H Alanine Aminotransferase (ALT/SGPT) 88 U/L (12-78) H Alkaline Phosphatase 405 U/L (46-116) H Total Protein 6.4 G/DL (6.4-8.2) Albumin 2.3 G/DL (3.4-5.0) L Globulin 4.1 g/dL Albumin/Globulin Ratio 0.6 (1.0-2.7) L Assessment Post-op Diagnosis gangrenous necrotic cholecystectomy Plan Problems: (1) Cholecystitis Assessment & Plan: s/p lap liban 08/24 for infected gangrene gallbladder recovering on abx does not want to ambulate because of pain pain rx reviewed and will be given incentive spirometry lft's noted likely reactive from inflammation possible stone dislodged into duct? trend labs not ready for d/c will need oral abx on d/c Case discussed with GI MRCP reviewed with radiologist cbd stone stable afebrile, HD Stable labs noted npo iv fluids iv abx AM labs ERCP then cholecystectomy OR tomorrow thank you will follow with recs Liver: Unremarkable. Gallbladder: Distended gallbladder. No definite shadowing cholelithiasis. Mildly prominent 4 mm gallbladder wall. Possible small pericholecystic fluid. Correlate clinically for cholecystitis. Common bile duct: CBD 6 mm. Pancreas: Pancreas obscured. Kidneys: No hydronephrosis. Spleen: Unremarkable. Aorta: Unremarkable as visualized. Inferior vena cava: Unremarkable as visualized. IMPRESSION: Distended gallbladder. No definite shadowing cholelithiasis. Mildly prominent 4 mm gallbladder wall. Possible small pericholecystic fluid. Correlate clinically for cholecystitis. the gallbladder wall is somewhat edematous and the gallbladder is distended. The fat saturated images suggests some infiltration of the pericholecystic fat as well as a small amount of fluid adjacent to the tip of the liver. No filling defects to suggest gallstones are evident in the gallbladder lumen. However, there is a possible 8 mm filling defect in the gallbladder neck. In addition, there is a 7 mm diameter filling defect in the downstream common bile duct. The common bile duct measures 7 mm in diameter. There is no intrahepatic biliary ductal dilatation. The liver, pancreas, spleen, adrenals, kidneys are unremarkable. The prostate is enlarged. There are trace bilateral pleural effusions. Impression: Positive for choledocholithiasis. This results in mild biliary ductal dilatation. Suspect gallbladder neck stone. Mild gallbladder wall edema in some infiltration of the pericholecystic fat raises possibility of acute cholecystitis. Consider hepatobiliary nuclear scan for confirmation if there is high clinical suspicion. Evidence of trace free intraperitoneal fluid Trace bilateral pleural effusions Discharge planning repeat labs in Lopez Nevarez Aug 27, 2019 16:43
[2019-08-27 20:00] VITALS: BP 128/71
[2019-08-28] VITALS: BP 136/75
[2019-08-28 05:09] VITALS: BP 121/71
[2019-08-28] MEDS: Piperacillin/Tazobactam 3.375 GM in NS 110 ML IVPB SCH (05:14)
[2019-08-28] MEDS ORDERED: ZOFRAN4 M3 ORAL (07:10)
[2019-08-28 07:12] LABS: BASOPHILS % (AUTO) 0.5 % (0.0-2.0); EOSINOPHILS % (AUTO) 1.1 % (0.0-3.0); HEMATOCRIT 34.3 % (42.0-52.0); LYMPHOCYTES % (AUTO) 10.3 % (20.0-45.0); MEAN CORPUSCULAR VOLUME 88 FL (80-99); MONOCYTES % (AUTO) 6.5 % (1.0-10.0); NEUTROPHILS % (AUTO) 81.6 % (45.0-75.0); PLATELET COUNT 339 K/UL (150-450); RED BLOOD COUNT 3.92 M/UL (4.70-6.10); WHITE BLOOD COUNT 14.5 K/UL (4.8-10.8)
[2019-08-28 07:40] LABS: ALANINE AMINOTRANSFERASE 68 U/L (12-78); ALBUMIN 2.2 G/DL (3.4-5.0); ALBUMIN/GLOBULIN RATIO 0.6 (1.0-2.7); ALKALINE PHOSPHATASE 340 U/L (46-116); ANION GAP 6 mmol/L (5-15); ASPARTATE AMINO TRANSFERASE 34 U/L (15-37); BILIRUBIN,TOTAL 0.8 MG/DL (0.2-1.0); BLOOD UREA NITROGEN 9 mg/dL (7-18); CALCIUM 7.6 MG/DL (8.5-10.1); CARBON DIOXIDE 29 MMOL/L (21-32); CHLORIDE 105 MMOL/L (98-107); CREATININE 0.8 MG/DL (0.55-1.30); POTASSIUM 3.8 MMOL/L (3.5-5.1); SODIUM 140 MMOL/L (136-145)
[2019-08-28 08:00] VITALS: BP 138/86
--- NOTE | 2019-08-28 08:11 | General Progress Note ---
Assessment/Plan Status: unchanged Assessment/Plan: cholecystitis gallstones abdominal pain s/p ERCP post op liban constipation PLAN laxatives postop care ID ripangel arabella gi and gs clearance monitor LFTs iv hydration impression, plan, and exam edited and reviewed in detail care discussed with RN Subjective Allergies: Coded Allergies: No Known Allergies (Unverified , 08/20/19) Subjective care noted postop cultures + from gallbladder on antibiotics + constipation wbc elevated liver enzymes elevated Objective Last 24 Hour Vital Signs Date Time Temp Pulse Resp B/P (MAP) Pulse Ox O2 Delivery O2 Flow Rate FiO2 08/28/19 05:09 98.9 61 18 121/71 (88) 94 08/28/19 00:00 98.2 65 20 136/75 (95) 95 08/27/19 21:00 Room Air 08/27/19 20:00 98.0 70 18 128/71 (90) 95 08/27/19 16:00 98.6 81 20 125/69 (87) 96 08/27/19 12:00 99.5 65 20 131/73 (92) 97 Intake and Output 08/27/19 08/28/19 19:00 07:00 Intake Total 500 ml 337.5 ml Balance 500 ml 337.5 ml Intake Oral 500 ml 200 ml IV Total 137.5 ml # Voids 3 3 Laboratory Tests 08/28/19 05:10: White Blood Count 14.5H, Red Blood Count 3.92L, Hemoglobin 12.0L, Hematocrit 34.3L, Mean Corpuscular Volume 88, Mean Corpuscular Hemoglobin 30.6, Mean Corpuscular Hemoglobin Concent 34.9, Red Cell Distribution Width 12.0, Platelet Count 339, Mean Platelet Volume 5.3L, Neutrophils (%) (Auto) 81.6H, Lymphocytes (%) (Auto) 10.3L, Monocytes (%) (Auto) 6.5, Eosinophils (%) (Auto) 1.1, Basophils (%) (Auto) 0.5, Sodium Level 140, Potassium Level 3.8, Chloride Level 105, Carbon Dioxide Level 29, Anion Gap 6, Blood Urea Nitrogen 9, Creatinine 0.8 , Estimat Glomerular Filtration Rate > 60, Glucose Level 104, Calcium Level 7.6L , Total Bilirubin 0.8, Aspartate Amino Transf (AST/SGOT) 34, Alanine Aminotransferase (ALT/SGPT) 68, Alkaline Phosphatase 340H, Total Protein 6.1L, Albumin 2.2L, Globulin 3.9, Albumin/Globulin Ratio 0.6L Height (Feet): 5 Height (Inches): 5.00 Weight (Pounds): 206 Objective WDWN NAD clear breath sounds bilaterally without rhonchi or wheeze [id number] without MRG NABS tender RUQ no CCE nonfocal Aaron Cordova MD August 28, 2019 08:11
--- NOTE | 2019-08-28 08:41 | General Progress Note ---
Assessment/Plan Problem List: (1) Choledocholithiasis ICD Codes: K80.50 - Calculus of bile duct without cholangitis or cholecystitis without obstruction SNOMED: 049285359 (2) Cholecystitis ICD Codes: K81.9 - Cholecystitis, unspecified SNOMED: 45448899 (3) UTI (urinary tract infection) ICD Codes: N39.0 - Urinary tract infection, site not specified SNOMED: 85494051 Qualifiers: Qualified Codes: N30.01 - Acute cystitis with hematuria Status: unchanged Assessment/Plan: s/p ERCP s/p cholecystectomy POD #3 elevated LFTS>>> improving d/w surg will monitor repeat labs will fu Subjective ROS Limited/Unobtainable: No Allergies: Coded Allergies: No Known Allergies (Unverified , 08/20/19) Objective Last 24 Hour Vital Signs Date Time Temp Pulse Resp B/P (MAP) Pulse Ox O2 Delivery O2 Flow Rate FiO2 08/28/19 05:09 98.9 61 18 121/71 (88) 94 08/28/19 00:00 98.2 65 20 136/75 (95) 95 08/27/19 21:00 Room Air 08/27/19 20:00 98.0 70 18 128/71 (90) 95 08/27/19 16:00 98.6 81 20 125/69 (87) 96 08/27/19 12:00 99.5 65 20 131/73 (92) 97 Intake and Output 08/27/19 08/28/19 19:00 07:00 Intake Total 500 ml 337.5 ml Balance 500 ml 337.5 ml Intake Oral 500 ml 200 ml IV Total 137.5 ml # Voids 3 3 Laboratory Tests 08/28/19 05:10: White Blood Count 14.5H, Red Blood Count 3.92L, Hemoglobin 12.0L, Hematocrit 34.3L, Mean Corpuscular Volume 88, Mean Corpuscular Hemoglobin 30.6, Mean Corpuscular Hemoglobin Concent 34.9, Red Cell Distribution Width 12.0, Platelet Count 339, Mean Platelet Volume 5.3L, Neutrophils (%) (Auto) 81.6H, Lymphocytes (%) (Auto) 10.3L, Monocytes (%) (Auto) 6.5, Eosinophils (%) (Auto) 1.1, Basophils (%) (Auto) 0.5, Sodium Level 140, Potassium Level 3.8, Chloride Level 105, Carbon Dioxide Level 29, Anion Gap 6, Blood Urea Nitrogen 9, Creatinine 0.8 , Estimat Glomerular Filtration Rate > 60, Glucose Level 104, Calcium Level 7.6L , Total Bilirubin 0.8, Aspartate Amino Transf (AST/SGOT) 34, Alanine Aminotransferase (ALT/SGPT) 68, Alkaline Phosphatase 340H, Total Protein 6.1L, Albumin 2.2L, Globulin 3.9, Albumin/Globulin Ratio 0.6L Height (Feet): 5 Height (Inches): 5.00 Weight (Pounds): 206 General Appearance: no apparent distress EENT: normal ENT inspection Neck: supple Cardiovascular: normal rate Respiratory/Chest: decreased breath sounds Abdomen: normal bowel sounds, non tender, soft Extremities: non-tender Regino Lugo MD August 28, 2019 08:41
[2019-08-28] MEDS: Docusate 100mg cap ORAL SCH ×2 (09:57→18:14)
[2019-08-28] MEDS: SIMETHICONE 80 MG PO SCH ×3 (09:57→18:14)
[2019-08-28] MEDS: Montelukast 10mg tablet ORAL SCH (09:57)
[2019-08-28] MEDS: Lactobacillus-GG tablet ORAL SCH (09:57)
[2019-08-28] MEDS: Levofloxacin 500mg tab ORAL SCH (11:24)
[2019-08-28] MEDS: Morphine Sulfate 2mg/ml Inj(IV/IM USE ONLY) IVP PRN ×2 (11:32→18:15)
--- NOTE | 2019-08-28 11:34 | Surgery Progress Note ---
Surgery Progress Note Subjective Procedure Performed lap liban Additional Comments doing okay ambulatory normal bm pain okay no n/v/f/c worsening leukocyotsis feels weak hold d/c. will need to check AM labs Objective Last 24 Hour Vital Signs Date Time Temp Pulse Resp B/P (MAP) Pulse Ox O2 Delivery O2 Flow Rate FiO2 08/28/19 09:00 Room Air 08/28/19 08:00 99.7 75 18 138/86 (103) 96 08/28/19 05:09 98.9 61 18 121/71 (88) 94 08/28/19 00:00 98.2 65 20 136/75 (95) 95 08/27/19 21:00 Room Air 08/27/19 20:00 98.0 70 18 128/71 (90) 95 08/27/19 16:00 98.6 81 20 125/69 (87) 96 08/27/19 12:00 99.5 65 20 131/73 (92) 97 I&O Intake and Output 08/27/19 08/28/19 19:00 07:00 Intake Total 500 ml 337.5 ml Balance 500 ml 337.5 ml Intake Oral 500 ml 200 ml IV Total 137.5 ml # Voids 3 3 Dressing: dry Wound: clean Cardiovascular: RSR Respiratory: clear Abdomen: soft, non-tender, present bowel sounds, non-distended Extremities: no edema, no tenderness, no cyanosis Laboratory Tests Test 08/28/19 05:10 White Blood Count 14.5 K/UL (4.8-10.8) H Red Blood Count 3.92 M/UL (4.70-6.10) L Hemoglobin 12.0 G/DL (14.2-18.0) L Hematocrit 34.3 % (42.0-52.0) L Mean Corpuscular Volume 88 FL (80-99) Mean Corpuscular Hemoglobin 30.6 PG (27.0-31.0) Mean Corpuscular Hemoglobin Concent 34.9 G/DL (32.0-36.0) Red Cell Distribution Width 12.0 % (11.6-14.8) Platelet Count 339 K/UL (150-450) Mean Platelet Volume 5.3 FL (6.5-10.1) L Neutrophils (%) (Auto) 81.6 % (45.0-75.0) H Lymphocytes (%) (Auto) 10.3 % (20.0-45.0) L Monocytes (%) (Auto) 6.5 % (1.0-10.0) Eosinophils (%) (Auto) 1.1 % (0.0-3.0) Basophils (%) (Auto) 0.5 % (0.0-2.0) Sodium Level 140 MMOL/L (136-145) Potassium Level 3.8 MMOL/L (3.5-5.1) Chloride Level 105 MMOL/L (98-107) Carbon Dioxide Level 29 MMOL/L (21-32) Anion Gap 6 mmol/L (5-15) Blood Urea Nitrogen 9 mg/dL (7-18) Creatinine 0.8 MG/DL (0.55-1.30) Estimat Glomerular Filtration Rate > 60 mL/min (>60) Glucose Level 104 MG/DL (74-106) Calcium Level 7.6 MG/DL (8.5-10.1) L Total Bilirubin 0.8 MG/DL (0.2-1.0) Aspartate Amino Transf (AST/SGOT) 34 U/L (15-37) Alanine Aminotransferase (ALT/SGPT) 68 U/L (12-78) Alkaline Phosphatase 340 U/L (46-116) H Total Protein 6.1 G/DL (6.4-8.2) L Albumin 2.2 G/DL (3.4-5.0) L Globulin 3.9 g/dL Albumin/Globulin Ratio 0.6 (1.0-2.7) L Assessment Post-op Diagnosis gangrenous necrotic cholecystectomy Plan Problems: (1) Cholecystitis Assessment & Plan: s/p lap liban 08/24 for infected gangrene gallbladder recovering on abx does not want to ambulate because of pain pain rx reviewed and will be given incentive spirometry lft's noted likely reactive from inflammation possible stone dislodged into duct? trend labs not ready for d/c will need oral abx on d/c Case discussed with GI MRCP reviewed with radiologist cbd stone stable afebrile, HD Stable labs noted npo iv fluids iv abx AM labs ERCP then cholecystectomy OR tomorrow thank you will follow with recs Liver: Unremarkable. Gallbladder: Distended gallbladder. No definite shadowing cholelithiasis. Mildly prominent 4 mm gallbladder wall. Possible small pericholecystic fluid. Correlate clinically for cholecystitis. Common bile duct: CBD 6 mm. Pancreas: Pancreas obscured. Kidneys: No hydronephrosis. Spleen: Unremarkable. Aorta: Unremarkable as visualized. Inferior vena cava: Unremarkable as visualized. IMPRESSION: Distended gallbladder. No definite shadowing cholelithiasis. Mildly prominent 4 mm gallbladder wall. Possible small pericholecystic fluid. Correlate clinically for cholecystitis. the gallbladder wall is somewhat edematous and the gallbladder is distended. The fat saturated images suggests some infiltration of the pericholecystic fat as well as a small amount of fluid adjacent to the tip of the liver. No filling defects to suggest gallstones are evident in the gallbladder lumen. However, there is a possible 8 mm filling defect in the gallbladder neck. In addition, there is a 7 mm diameter filling defect in the downstream common bile duct. The common bile duct measures 7 mm in diameter. There is no intrahepatic biliary ductal dilatation. The liver, pancreas, spleen, adrenals, kidneys are unremarkable. The prostate is enlarged. There are trace bilateral pleural effusions. Impression: Positive for choledocholithiasis. This results in mild biliary ductal dilatation. Suspect gallbladder neck stone. Mild gallbladder wall edema in some infiltration of the pericholecystic fat raises possibility of acute cholecystitis. Consider hepatobiliary nuclear scan for confirmation if there is high clinical suspicion. Evidence of trace free intraperitoneal fluid Trace bilateral pleural effusions Discharge planning repeat labs in a.m. Additional Comments hold d/c am labs cont Lopez Obregon August 28, 2019 11:34
[2019-08-28 12:00] VITALS: BP 131/72
[2019-08-28] MEDS ORDERED: Tubing IV Secondary IV ONE (13:24)
[2019-08-28] MEDS ORDERED: NS 275ml ONE (13:24)
[2019-08-28 16:00] VITALS: BP 120/75
--- NOTE | 2019-08-28 18:45 | Consultation ---
DATE OF CONSULTATION: 08/28/2019 INFECTIOUS DISEASES CONSULTATION CONSULTING PHYSICIAN: Armando Lopez MD. REFERRING PHYSICIAN: Aaron Cordova MD. REASON FOR CONSULTATION: Possible cholecystitis. HISTORY OF PRESENTING ILLNESS: This is a 69-year-old gentleman with history of gallstones, who comes in with nausea vomiting as well as abdominal pain, which radiates to the back. He has history of gallstones and he was found to have cholecystitis and an Infectious Diseases consultation has been obtained for antibiotics. He underwent laparoscopic cholecystectomy and was found to have gangrenous, necrotic, infected, acute cholecystitis. PAST MEDICAL HISTORY: History of gallstones. SOCIAL HISTORY: He does not smoke, drink, or use drugs. FAMILY HISTORY: Noncontributory. REVIEW OF SYSTEMS: RESPIRATORY: No fever or chills. No cough. No shortness of breath or chest pain. CARDIAC: No chest pain. No palpitation. No dizziness. No syncope. GASTROINTESTINAL: He had nausea and vomiting. He has abdominal pain radiating to the back. No diarrhea. MEDICATIONS: As an inpatient, he is on docusate, morphine, Zofran, milk of magnesia, senna, Restoril, Tylenol, Mylanta, Benadryl, atorvastatin, simethicone, Zosyn, lactobacillus, Protonix, montelukast, Tylenol, and Mylanta. ALLERGIES: No known drug allergies. PHYSICAL EXAMINATION: VITAL SIGNS: Temperature of 98.9, T-max of 99.5, pulse of 61, respiratory rate 18, blood pressure 121/71, O2 saturation of 94%. HEENT: Pupils equally reactive to light and accommodation. Mouth appears clean without thrush. NECK: Supple. No adenopathy. No JVD. CARDIOVASCULAR: Regular rate and rhythm. No murmurs. LUNGS: Clear to auscultation bilaterally. No crackles. No wheezes. ABDOMEN: Soft. EXTREMITIES: No cyanosis. No clubbing. No edema. LABORATORY AND DIAGNOSTIC DATA: White count 14.5, hemoglobin 12, hematocrit 34.3, MCV 88, platelet count 339,000. Sodium 140, potassium 3.8, chloride 105, bicarb 29, BUN 9, creatinine 0.8, glucose 104, calcium 7.6. Total bilirubin 0.8, AST 34, ALT 68, alkaline phosphatase 340, total protein 6.1, albumin 2.2. Amylase of 44, lipase of 164. UA is showing 10-15 white cells. Gallbladder culture is growing E. coli and enterococcus. The E. coli is resistant to piperacillin and tazobactam, susceptible to Levaquin and ertapenem. The enterococcus is ampicillin susceptible and vancomycin susceptible. Chest x-ray is showing right lung opacities, may represent atelectasis. Abdomen MRI is showing choledocholithiasis with mild biliary ductal dilatation, suspect gallbladder neck stone, mild gallbladder wall edema, and some infiltration of the pericholecystic fat raises possibility of acute cholecystitis, trace free intraperitoneal fluid, trace bilateral pleural effusion, and enlarged prostate. Abdominal ultrasound is showing distended gallbladder, possible small pericholecystic fluid. Urine culture is growing mixed gram-positive organism. ASSESSMENT: 1. This is a 69-year-old gentleman with history of gallstones, who comes in with nausea, vomiting, abdominal pain, and is found to have acute cholecystitis. He underwent laparoscopic cholecystectomy and was found to have acute gangrenous cholecystitis. Cultures are growing E. coli and enterococcus. 2. Leukocytosis. 3. Gallstones. PLAN: 1. Discontinue Zosyn. 2. We will start the patient on p.o. amoxicillin and Levaquin and continue for 7 days. 3. We will follow up the patient clinically. I would like to thank, Dr. Cordova for this consultation. Aramndo Lopez M.D. DR: Selena JOB#: [id number] CC: Aaron Cordova M.D.; Fax#: [phone]
[2019-08-28 20:00] VITALS: BP 113/74
[2019-08-29] VITALS: BP 127/68
[2019-08-29] MEDS: Morphine Sulfate 2mg/ml Inj(IV/IM USE ONLY) IVP PRN ×2 (01:00→15:44)
[2019-08-29 04:00] VITALS: BP 121/71
--- NOTE | 2019-08-29 07:07 | General Progress Note ---
Assessment/Plan Problem List: (1) Choledocholithiasis ICD Codes: K80.50 - Calculus of bile duct without cholangitis or cholecystitis without obstruction SNOMED: 483336726 (2) Cholecystitis ICD Codes: K81.9 - Cholecystitis, unspecified SNOMED: 00116194 (3) UTI (urinary tract infection) ICD Codes: N39.0 - Urinary tract infection, site not specified SNOMED: 96531480 Qualifiers: Qualified Codes: N30.01 - Acute cystitis with hematuria Status: unchanged Assessment/Plan: s/p ERCP s/p cholecystectomy POD #4 elevated LFTS>>> improving d/w surg will monitor repeat labs will fu Subjective ROS Limited/Unobtainable: Yes Allergies: Coded Allergies: No Known Allergies (Unverified , 08/20/19) Objective Last 24 Hour Vital Signs Date Time Temp Pulse Resp B/P (MAP) Pulse Ox O2 Delivery O2 Flow Rate FiO2 08/29/19 04:00 99.9 68 18 121/71 (88) 97 08/29/19 00:00 99.3 67 18 127/68 (87) 94 08/28/19 21:00 Room Air 08/28/19 20:00 100.6 79 18 113/74 (87) 100 08/28/19 16:00 98.4 78 18 120/75 (90) 96 08/28/19 12:00 98.7 69 18 131/72 (91) 96 08/28/19 09:00 Room Air 08/28/19 08:00 99.7 75 18 138/86 (103) 96 Intake and Output 08/28/19 08/29/19 19:00 07:00 Intake Total 700 ml 100 ml Balance 700 ml 100 ml Intake Oral 700 ml 100 ml # Voids 3 4 Height (Feet): 5 Height (Inches): 5.00 Weight (Pounds): 206 General Appearance: alert EENT: normal ENT inspection Neck: supple Cardiovascular: normal rate Respiratory/Chest: decreased breath sounds Abdomen: normal bowel sounds, non tender, soft Extremities: non-tender Regino Lugo MD August 29, 2019 07:07
[2019-08-29 08:21] VITALS: BP 110/70
[2019-08-29] MEDS: SIMETHICONE 80 MG PO SCH ×3 (10:01→17:43)
[2019-08-29] MEDS: Docusate 100mg cap ORAL SCH ×2 (10:01→17:42)
[2019-08-29] MEDS: Lactobacillus-GG tablet ORAL SCH (10:01)
[2019-08-29] MEDS: Levofloxacin 500mg tab ORAL SCH (10:01)
[2019-08-29] MEDS: Montelukast 10mg tablet ORAL SCH (10:01)
[2019-08-29 10:33] LABS: ALANINE AMINOTRANSFERASE 49 U/L (12-78); ALBUMIN 2.2 G/DL (3.4-5.0); ALBUMIN/GLOBULIN RATIO 0.6 (1.0-2.7); ALKALINE PHOSPHATASE 260 U/L (46-116); ANION GAP 7 mmol/L (5-15); ASPARTATE AMINO TRANSFERASE 31 U/L (15-37); BILIRUBIN,TOTAL 0.5 MG/DL (0.2-1.0); BLOOD UREA NITROGEN 9 mg/dL (7-18); CALCIUM 8.1 MG/DL (8.5-10.1); CARBON DIOXIDE 27 MMOL/L (21-32); CHLORIDE 102 MMOL/L (98-107); CREATININE 0.9 MG/DL (0.55-1.30); POTASSIUM 3.4 MMOL/L (3.5-5.1); SODIUM 136 MMOL/L (136-145)
--- NOTE | 2019-08-29 11:07 | Surgery Progress Note ---
Surgery Progress Note Subjective Procedure Performed lap liban Symptoms: improved, tolerating diet, voiding well, passing flatus, BM, pain decreased Additional Comments feels much better today no n/f/c/ pending labs d/c planning Objective Last 24 Hour Vital Signs Date Time Temp Pulse Resp B/P (MAP) Pulse Ox O2 Delivery O2 Flow Rate FiO2 08/29/19 09:00 Room Air 08/29/19 08:21 98.4 90 20 110/70 (83) 96 08/29/19 04:00 99.9 68 18 121/71 (88) 97 08/29/19 00:00 99.3 67 18 127/68 (87) 94 08/28/19 21:00 Room Air 08/28/19 20:00 100.6 79 18 113/74 (87) 100 08/28/19 16:00 98.4 78 18 120/75 (90) 96 08/28/19 12:00 98.7 69 18 131/72 (91) 96 I&O Intake and Output 08/28/19 08/29/19 19:00 07:00 Intake Total 700 ml 100 ml Balance 700 ml 100 ml Intake Oral 700 ml 100 ml # Voids 3 4 Dressing: dry Wound: clean Cardiovascular: RSR Respiratory: clear Abdomen: soft, non-tender, present bowel sounds Extremities: no tenderness, no cyanosis Laboratory Tests Test 08/29/19 10:10 White Blood Count Pending Red Blood Count Pending Hemoglobin Pending Hematocrit Pending Mean Corpuscular Volume Pending Mean Corpuscular Hemoglobin Pending Mean Corpuscular Hemoglobin Concent Pending Red Cell Distribution Width Pending Platelet Count Pending Mean Platelet Volume Pending Neutrophils (%) (Auto) Pending Lymphocytes (%) (Auto) Pending Monocytes (%) (Auto) Pending Eosinophils (%) (Auto) Pending Basophils (%) (Auto) Pending Sodium Level 136 MMOL/L (136-145) Potassium Level 3.4 MMOL/L (3.5-5.1) L Chloride Level 102 MMOL/L (98-107) Carbon Dioxide Level 27 MMOL/L (21-32) Anion Gap 7 mmol/L (5-15) Blood Urea Nitrogen 9 mg/dL (7-18) Creatinine 0.9 MG/DL (0.55-1.30) Estimat Glomerular Filtration Rate > 60 mL/min (>60) Glucose Level 127 MG/DL (74-106) H Calcium Level 8.1 MG/DL (8.5-10.1) L Total Bilirubin 0.5 MG/DL (0.2-1.0) Aspartate Amino Transf (AST/SGOT) 31 U/L (15-37) Alanine Aminotransferase (ALT/SGPT) 49 U/L (12-78) Alkaline Phosphatase 260 U/L (46-116) H Total Protein 6.2 G/DL (6.4-8.2) L Albumin 2.2 G/DL (3.4-5.0) L Globulin 4.0 g/dL Albumin/Globulin Ratio 0.6 (1.0-2.7) L Assessment Post-op Diagnosis gangrenous necrotic cholecystectomy Plan Problems: (1) Cholecystitis Assessment & Plan: s/p lap liban 08/24 for infected gangrene gallbladder recovering on abx does not want to ambulate because of pain pain rx reviewed and will be given incentive spirometry lft's noted likely reactive from inflammation possible stone dislodged into duct? trend labs not ready for d/c will need oral abx on d/c pending labs rx written d/c planning Case discussed with GI MRCP reviewed with radiologist cbd stone stable afebrile, HD Stable labs noted npo iv fluids iv abx AM labs ERCP then cholecystectomy OR tomorrow thank you will follow with recs Liver: Unremarkable. Gallbladder: Distended gallbladder. No definite shadowing cholelithiasis. Mildly prominent 4 mm gallbladder wall. Possible small pericholecystic fluid. Correlate clinically for cholecystitis. Common bile duct: CBD 6 mm. Pancreas: Pancreas obscured. Kidneys: No hydronephrosis. Spleen: Unremarkable. Aorta: Unremarkable as visualized. Inferior vena cava: Unremarkable as visualized. IMPRESSION: Distended gallbladder. No definite shadowing cholelithiasis. Mildly prominent 4 mm gallbladder wall. Possible small pericholecystic fluid. Correlate clinically for cholecystitis. the gallbladder wall is somewhat edematous and the gallbladder is distended. The fat saturated images suggests some infiltration of the pericholecystic fat as well as a small amount of fluid adjacent to the tip of the liver. No filling defects to suggest gallstones are evident in the gallbladder lumen. However, there is a possible 8 mm filling defect in the gallbladder neck. In addition, there is a 7 mm diameter filling defect in the downstream common bile duct. The common bile duct measures 7 mm in diameter. There is no intrahepatic biliary ductal dilatation. The liver, pancreas, spleen, adrenals, kidneys are unremarkable. The prostate is enlarged. There are trace bilateral pleural effusions. Impression: Positive for choledocholithiasis. This results in mild biliary ductal dilatation. Suspect gallbladder neck stone. Mild gallbladder wall edema in some infiltration of the pericholecystic fat raises possibility of acute cholecystitis. Consider hepatobiliary nuclear scan for confirmation if there is high clinical suspicion. Evidence of trace free intraperitoneal fluid Trace bilateral pleural effusions Discharge planning repeat labs in Lopez Nevarez August 29, 2019 11:07
[2019-08-29 11:18] LABS: HEMATOCRIT 33.9 % (42.0-52.0); HEMOGLOBIN 11.9 G/DL (14.2-18.0); MEAN CORPUSCULAR VOLUME 87 FL (80-99); PLATELET COUNT 390 K/UL (150-450); RED BLOOD COUNT 3.89 M/UL (4.70-6.10); RED CELL DISTRIBUTION WIDTH 11.7 % (11.6-14.8); WHITE BLOOD COUNT 18.1 K/UL (4.8-10.8)
[2019-08-29 12:02] VITALS: BP 127/70
[2019-08-29 16:00] VITALS: BP 130/68
[2019-08-29 20:00] VITALS: BP 124/65
--- NOTE | 2019-08-29 23:10 | Pulmonology Progress Note ---
Assessment/Plan Assessment/Plan Pulmonary Progress Note Assessment/Plan: cholecystitis gallstones abdominal pain s/p ERCP post op liban constipation no new complaints Increasing WCC PLAN laxatives postop care ID clearance zosyn gi and gs clearance monitor LFTs iv hydration impression, plan, and exam edited and reviewed in detail care discussed with RN Subjective Allergies: Coded Allergies: No Known Allergies (Unverified , 08/20/19) Subjective care noted postop cultures + from gallbladder on antibiotics + constipation wbc elevated liver enzymes elevated Objective Vital Signs Noted Laboratory Tests Noted 08/28/19 05:10: White Blood Count 14.5H, Red Blood Count 3.92L, Hemoglobin 12.0L, Hematocrit 34.3L, Mean Corpuscular Volume 88, Mean Corpuscular Hemoglobin 30.6, Mean Corpuscular Hemoglobin Concent 34.9, Red Cell Distribution Width 12.0, Platelet Count 339, Mean Platelet Volume 5.3L, Neutrophils (%) (Auto) 81.6H, Lymphocytes (%) (Auto) 10.3L, Monocytes (%) (Auto) 6.5, Eosinophils (%) (Auto) 1.1, Basophils (%) (Auto) 0.5, Sodium Level 140, Potassium Level 3.8, Chloride Level 105, Carbon Dioxide Level 29, Anion Gap 6, Blood Urea Nitrogen 9, Creatinine 0.8 , Estimat Glomerular Filtration Rate > 60, Glucose Level 104, Calcium Level 7.6L , Total Bilirubin 0.8, Aspartate Amino Transf (AST/SGOT) 34, Alanine Aminotransferase (ALT/SGPT) 68, Alkaline Phosphatase 340H, Total Protein 6.1L, Albumin 2.2L, Globulin 3.9, Albumin/Globulin Ratio 0.6L Height (Feet): 5 Height (Inches): 5.00 Weight (Pounds): 206 Objective WDWN NAD clear breath sounds bilaterally without rhonchi or wheeze [id number] without MRG NABS tender RUQ no CCE nonfocal Subjective ROS Limited/Unobtainable: No Allergies: Coded Allergies: No Known Allergies (Unverified , 08/20/19) Objective Last 24 Hour Vital Signs Date Time Temp Pulse Resp B/P (MAP) Pulse Ox O2 Delivery O2 Flow Rate FiO2 08/29/19 20:00 98.2 67 18 124/65 (84) 97 5/2/20 17:29 99.1 08/29/19 16:00 100.0 71 18 130/68 (88) 96 08/29/19 12:02 99.6 73 18 127/70 (89) 92 08/29/19 09:00 Room Air 08/29/19 08:21 98.4 90 20 110/70 (83) 96 08/29/19 04:00 99.9 68 18 121/71 (88) 97 08/29/19 00:00 99.3 67 18 127/68 (87) 94 Intake and Output 08/28/19 08/29/19 19:00 07:00 Intake Total 700 ml 100 ml Balance 700 ml 100 ml Intake Oral 700 ml 100 ml # Voids 3 4 Laboratory Tests 08/29/19 10:10: White Blood Count 18.1H, Red Blood Count 3.89L, Hemoglobin 11.9L, Hematocrit 33.9L, Mean Corpuscular Volume 87, Mean Corpuscular Hemoglobin 30.6, Mean Corpuscular Hemoglobin Concent 35.1, Red Cell Distribution Width 11.7, Platelet Count 390, Mean Platelet Volume 5.1L, Neutrophils (%) (Auto) , Lymphocytes (%) ( Auto) , Monocytes (%) (Auto) , Eosinophils (%) (Auto) , Basophils (%) (Auto) , Differential Total Cells Counted 100, Neutrophils % (Manual) 88H, Lymphocytes % (Manual) 6L, Monocytes % (Manual) 3, Eosinophils % (Manual) 2, Basophils % ( Manual) 0, Band Neutrophils 1, Platelet Estimate Adequate, Platelet Morphology Normal, Red Blood Cell Morphology Normal, Sodium Level 136, Potassium Level 3.4L , Chloride Level 102, Carbon Dioxide Level 27, Anion Gap 7, Blood Urea Nitrogen 9, Creatinine 0.9, Estimat Glomerular Filtration Rate > 60, Glucose Level 127H, Calcium Level 8.1L, Total Bilirubin 0.5, Aspartate Amino Transf (AST/SGOT) 31, Alanine Aminotransferase (ALT/SGPT) 49, Alkaline Phosphatase 260H, Total Protein 6.2L, Albumin 2.2L, Globulin 4.0, Albumin/Globulin Ratio 0.6L Current Medications Medications (Trade) Dose Ordered Sig/Belen Route PRN Reason Start Time Stop Time Status Last Admin Dose Admin Acetaminophen (Tylenol) 650 mg Q4H PRN ORAL Mild Pain (Pain Scale 1-3) 08/21/19 02:45 5/24/20 02:44 08/22/19 21:24 Acetaminophen (Tylenol) 650 mg Q4H PRN ORAL FEVER 08/25/19 12:45 09/24/19 12:44 08/29/19 16:30 Al Hydroxide/Mg Hydroxide (Mylanta) 15 ml Q6H PRN ORAL DYSPEPSIA 08/25/19 12:45 09/24/19 12:44 Al Hydroxide/Mg Hydroxide (Mylanta) 30 ml Q4H PRN ORAL Indigestion/heartburn 08/21/19 02:45 09/20/19 02:44 08/22/19 21:27 Amoxicillin/ Clavulanate Potassium (Augmentin) 500 mg EVERY 8 HOURS ORAL 08/28/19 14:00 09/04/19 13:59 08/29/19 21:08 Atorvastatin Calcium (Lipitor) 10 mg BEDTIME ORAL 08/21/19 21:00 11/19/19 20:59 08/29/19 21:08 Diphenhydramine HCl (Benadryl) 25 mg Q8H PRN ORAL Itching/Pruritis 08/25/19 12:45 09/24/19 12:44 Docusate Sodium (Colace) 100 mg TWICE A DAY ORAL 08/25/19 18:00 09/24/19 17:59 08/29/19 17:42 Lactobacillus Acidophilus (Culturelle) 1 tab DAILY ORAL 08/21/19 09:00 09/20/19 08:59 08/29/19 10:01 Levofloxacin (Levaquin) 500 mg DAILY ORAL 08/28/19 11:00 09/04/19 10:59 08/29/19 10:01 Magnesium Hydroxide (Mom) 30 ml BIDPRN PRN ORAL Constipation 08/25/19 12:45 09/24/19 12:44 08/27/19 06:14 Montelukast Sodium (Singulair) 10 mg DAILY ORAL 08/21/19 09:00 11/19/19 08:59 08/29/19 10:01 Morphine Sulfate (Morphine Sulfate) 2 mg Q4H PRN IVP pain scale 4-6 08/25/19 12:45 09/01/19 12:44 08/29/19 15:44 Morphine Sulfate (Morphine Sulfate) 4 mg Q4H PRN IVP pain score 7-10 08/25/19 12:45 09/01/19 12:44 Ondansetron HCl (Zofran) 4 mg Q6H PRN IVP Nausea & Vomiting 08/25/19 12:45 09/24/19 12:44 08/27/19 09:10 Pantoprazole (Protonix) 40 mg DAILY ORAL 08/21/19 09:00 09/20/19 08:59 08/29/19 10:01 Sennosides (Senokot) 8.6 mg BIDPRN PRN ORAL Constipation 08/25/19 12:45 09/24/19 12:44 Simethicone (Mylicon) 160 mg TID PO 08/21/19 13:00 11/19/19 12:59 08/29/19 17:43 Temazepam (RestoriL) 7.5 mg DAILYPRN PRN ORAL Insomnia 08/25/19 12:45 09/01/19 12:44 Esau Holden MD August 29, 2019 23:10
[2019-08-30] VITALS: BP 119/69
[2019-08-30 04:00] VITALS: BP 125/68
[2019-08-30 05:39] LABS: HEMATOCRIT 33.4 % (42.0-52.0); HEMOGLOBIN 11.8 G/DL (14.2-18.0); MEAN CORPUSCULAR VOLUME 87 FL (80-99); PLATELET COUNT 422 K/UL (150-450); RED BLOOD COUNT 3.84 M/UL (4.70-6.10); RED CELL DISTRIBUTION WIDTH 11.9 % (11.6-14.8)
[2019-08-30 05:47] LABS: ALANINE AMINOTRANSFERASE 59 U/L (12-78); ALBUMIN 2.1 G/DL (3.4-5.0); ALBUMIN/GLOBULIN RATIO 0.5 (1.0-2.7); ALKALINE PHOSPHATASE 243 U/L (46-116); ANION GAP 8 mmol/L (5-15); ASPARTATE AMINO TRANSFERASE 33 U/L (15-37); BILIRUBIN,TOTAL 0.6 MG/DL (0.2-1.0); BLOOD UREA NITROGEN 11 mg/dL (7-18); CALCIUM 7.9 MG/DL (8.5-10.1); CARBON DIOXIDE 28 MMOL/L (21-32); CHLORIDE 104 MMOL/L (98-107); CREATININE 0.9 MG/DL (0.55-1.30); POTASSIUM 4.2 MMOL/L (3.5-5.1); SODIUM 140 MMOL/L (136-145)
--- NOTE | 2019-08-30 06:39 | General Progress Note ---
Assessment/Plan Problem List: (1) Choledocholithiasis ICD Codes: K80.50 - Calculus of bile duct without cholangitis or cholecystitis without obstruction SNOMED: 272225099 (2) Cholecystitis ICD Codes: K81.9 - Cholecystitis, unspecified SNOMED: 91439729 (3) UTI (urinary tract infection) ICD Codes: N39.0 - Urinary tract infection, site not specified SNOMED: 57274005 Qualifiers: Qualified Codes: N30.01 - Acute cystitis with hematuria Status: unchanged Assessment/Plan: s/p ERCP s/p cholecystectomy POD #5 elevated LFTS>>> improving d/w surg will monitor bowel regimen add miralax and dulcolax sup repeat labs will fu Subjective Allergies: Coded Allergies: No Known Allergies (Unverified , 08/20/19) Objective Last 24 Hour Vital Signs Date Time Temp Pulse Resp B/P (MAP) Pulse Ox O2 Delivery O2 Flow Rate FiO2 08/30/19 04:00 99.0 68 18 125/68 (87) 96 08/30/19 00:00 99.2 77 18 119/69 (86) 97 08/29/19 21:00 Room Air 08/29/19 20:00 98.2 67 18 124/65 (84) 97 08/29/19 17:29 99.1 08/29/19 16:00 100.0 71 18 130/68 (88) 96 08/29/19 12:02 99.6 73 18 127/70 (89) 92 08/29/19 09:00 Room Air 08/29/19 08:21 98.4 90 20 110/70 (83) 96 Intake and Output 08/29/19 08/30/19 19:00 07:00 Intake Total 840 ml 150 ml Balance 840 ml 150 ml Intake Oral 840 ml 150 ml # Voids 4 3 Laboratory Tests 08/29/19 10:10: White Blood Count 18.1H, Red Blood Count 3.89L, Hemoglobin 11.9L, Hematocrit 33.9L, Mean Corpuscular Volume 87, Mean Corpuscular Hemoglobin 30.6, Mean Corpuscular Hemoglobin Concent 35.1, Red Cell Distribution Width 11.7, Platelet Count 390, Mean Platelet Volume 5.1L, Neutrophils (%) (Auto) , Lymphocytes (%) ( Auto) , Monocytes (%) (Auto) , Eosinophils (%) (Auto) , Basophils (%) (Auto) , Differential Total Cells Counted 100, Neutrophils % (Manual) 88H, Lymphocytes % (Manual) 6L, Monocytes % (Manual) 3, Eosinophils % (Manual) 2, Basophils % ( Manual) 0, Band Neutrophils 1, Platelet Estimate Adequate, Platelet Morphology Normal, Red Blood Cell Morphology Normal, Sodium Level 136, Potassium Level 3.4L , Chloride Level 102, Carbon Dioxide Level 27, Anion Gap 7, Blood Urea Nitrogen 9, Creatinine 0.9, Estimat Glomerular Filtration Rate > 60, Glucose Level 127H, Calcium Level 8.1L, Total Bilirubin 0.5, Aspartate Amino Transf (AST/SGOT) 31, Alanine Aminotransferase (ALT/SGPT) 49, Alkaline Phosphatase 260H, Total Protein 6.2L, Albumin 2.2L, Globulin 4.0, Albumin/Globulin Ratio 0.6L 08/30/19 04:40: White Blood Count 19.0H, Red Blood Count 3.84L, Hemoglobin 11.8L, Hematocrit 33.4L, Mean Corpuscular Volume 87, Mean Corpuscular Hemoglobin 30.8, Mean Corpuscular Hemoglobin Concent 35.4, Red Cell Distribution Width 11.9, Platelet Count 422, Mean Platelet Volume 4.9L, Neutrophils (%) (Auto) , Lymphocytes (%) ( Auto) , Monocytes (%) (Auto) , Eosinophils (%) (Auto) , Basophils (%) (Auto) , Neutrophils % (Manual) [Pending], Lymphocytes % (Manual) [Pending], Platelet Estimate [Pending], Platelet Morphology [Pending], Sodium Level 140, Potassium Level 4.2, Chloride Level 104, Carbon Dioxide Level 28, Anion Gap 8, Blood Urea Nitrogen 11, Creatinine 0.9, Estimat Glomerular Filtration Rate > 60, Glucose Level 108H, Calcium Level 7.9L, Total Bilirubin 0.6, Aspartate Amino Transf (AST /SGOT) 33, Alanine Aminotransferase (ALT/SGPT) 59, Alkaline Phosphatase 243H, Total Protein 6.3L, Albumin 2.1L, Globulin 4.2, Albumin/Globulin Ratio 0.5L Height (Feet): 5 Height (Inches): 5.00 Weight (Pounds): 206 General Appearance: alert EENT: PERRL/EOMI Neck: supple Cardiovascular: normal rate Respiratory/Chest: decreased breath sounds Abdomen: soft, hypoactive bowel sounds Extremities: non-tender Regino Lugo MD August 30, 2019 06:39
[2019-08-30 08:00] VITALS: BP 137/62
[2019-08-30] MEDS: SIMETHICONE 80 MG PO SCH ×3 (09:45→17:17)
[2019-08-30] MEDS: Docusate 100mg cap ORAL SCH ×2 (09:45→17:17)
[2019-08-30] MEDS: Montelukast 10mg tablet ORAL SCH (09:45)
[2019-08-30] MEDS: Lactobacillus-GG tablet ORAL SCH (09:45)
[2019-08-30] MEDS: Levofloxacin 500mg tab ORAL SCH (09:46)
[2019-08-30 12:00] VITALS: BP 123/65
--- NOTE | 2019-08-30 12:53 | Infectious Diseases Prog Note ---
Assessment/Plan Assessment/Plan ASSESSMENT: 1. Acute gangrenous cholecystitis. Cultures are growing E. coli and Enterococcus. 2. Leukocytosis. 3. Gallstones. PLAN: 1. continue p.o. Augmentin and Levaquin for 5 days. Subjective ROS Limited/Unobtainable: Yes Constitutional: Reports: no symptoms Respiratory: Reports: no symptoms Gastrointestinal/Abdominal: Reports: other - abdominal pain Musculoskeletal: Reports: pain, other - back pain Allergies: Coded Allergies: No Known Allergies (Unverified , 08/20/19) Objective Vital Signs Last 24 Hour Vital Signs Date Time Temp Pulse Resp B/P (MAP) Pulse Ox O2 Delivery O2 Flow Rate FiO2 08/30/19 12:00 98.8 69 16 123/65 (84) 97 08/30/19 09:00 Room Air 08/30/19 08:00 98.3 106 18 137/62 (87) 93 08/30/19 04:00 99.0 68 18 125/68 (87) 96 08/30/19 00:00 99.2 77 18 119/69 (86) 97 08/29/19 21:00 Room Air 08/29/19 20:00 98.2 67 18 124/65 (84) 97 08/29/19 17:29 99.1 08/29/19 16:00 100.0 71 18 130/68 (88) 96 Height (Feet): 5 Height (Inches): 5.00 Weight (Pounds): 206 General Appearance: no acute distress HEENT: mucous membranes moist Respiratory/Chest: lungs clear Cardiovascular: normal rate Abdomen: other - soft Extremities: no edema Neurologic/Psychiatric: alert, oriented x 3, responsive Laboratory Tests Test 08/30/19 04:40 White Blood Count 19.0 K/UL (4.8-10.8) H Red Blood Count 3.84 M/UL (4.70-6.10) L Hemoglobin 11.8 G/DL (14.2-18.0) L Hematocrit 33.4 % (42.0-52.0) L Mean Corpuscular Volume 87 FL (80-99) Mean Corpuscular Hemoglobin 30.8 PG (27.0-31.0) Mean Corpuscular Hemoglobin Concent 35.4 G/DL (32.0-36.0) Red Cell Distribution Width 11.9 % (11.6-14.8) Platelet Count 422 K/UL (150-450) Mean Platelet Volume 4.9 FL (6.5-10.1) L Neutrophils (%) (Auto) % (45.0-75.0) Lymphocytes (%) (Auto) % (20.0-45.0) Monocytes (%) (Auto) % (1.0-10.0) Eosinophils (%) (Auto) % (0.0-3.0) Basophils (%) (Auto) % (0.0-2.0) Differential Total Cells Counted 100 Neutrophils % (Manual) 82 % (45-75) H Lymphocytes % (Manual) 10 % (20-45) L Monocytes % (Manual) 8 % (1-10) Eosinophils % (Manual) 0 % (0-3) Basophils % (Manual) 0 % (0-2) Band Neutrophils 0 % (0-8) Platelet Estimate Adequate Platelet Morphology Normal Red Blood Cell Morphology Normal Sodium Level 140 MMOL/L (136-145) Potassium Level 4.2 MMOL/L (3.5-5.1) Chloride Level 104 MMOL/L (98-107) Carbon Dioxide Level 28 MMOL/L (21-32) Anion Gap 8 mmol/L (5-15) Blood Urea Nitrogen 11 mg/dL (7-18) Creatinine 0.9 MG/DL (0.55-1.30) Estimat Glomerular Filtration Rate > 60 mL/min (>60) Glucose Level 108 MG/DL (74-106) H Calcium Level 7.9 MG/DL (8.5-10.1) L Total Bilirubin 0.6 MG/DL (0.2-1.0) Aspartate Amino Transf (AST/SGOT) 33 U/L (15-37) Alanine Aminotransferase (ALT/SGPT) 59 U/L (12-78) Alkaline Phosphatase 243 U/L (46-116) H Total Protein 6.3 G/DL (6.4-8.2) L Albumin 2.1 G/DL (3.4-5.0) L Globulin 4.2 g/dL Albumin/Globulin Ratio 0.5 (1.0-2.7) L Current Medications Medications (Trade) Dose Ordered Sig/Belen Route PRN Reason Start Time Stop Time Status Last Admin Dose Admin Acetaminophen (Tylenol) 650 mg Q4H PRN ORAL Mild Pain (Pain Scale 1-3) 08/21/19 02:45 09/20/19 02:44 08/22/19 21:24 Acetaminophen (Tylenol) 650 mg Q4H PRN ORAL FEVER 08/25/19 12:45 09/24/19 12:44 08/29/19 16:30 Al Hydroxide/Mg Hydroxide (Mylanta) 15 ml Q6H PRN ORAL DYSPEPSIA 08/25/19 12:45 09/24/19 12:44 Al Hydroxide/Mg Hydroxide (Mylanta) 30 ml Q4H PRN ORAL Indigestion/heartburn 08/21/19 02:45 09/20/19 02:44 08/22/19 21:27 Amoxicillin/ Clavulanate Potassium (Augmentin) 500 mg EVERY 8 HOURS ORAL 08/28/19 14:00 09/04/19 13:59 08/30/19 06:20 Atorvastatin Calcium (Lipitor) 10 mg BEDTIME ORAL 08/21/19 21:00 11/19/19 20:59 08/29/19 21:08 Diphenhydramine HCl (Benadryl) 25 mg Q8H PRN ORAL Itching/Pruritis 08/25/19 12:45 09/24/19 12:44 Docusate Sodium (Colace) 100 mg TWICE A DAY ORAL 08/25/19 18:00 09/24/19 17:59 08/30/19 09:45 Lactobacillus Acidophilus (Culturelle) 1 tab DAILY ORAL 08/21/19 09:00 09/20/19 08:59 08/30/19 09:45 Levofloxacin (Levaquin) 500 mg DAILY ORAL 08/28/19 11:00 09/04/19 10:59 08/30/19 09:46 Magnesium Hydroxide (Mom) 30 ml BIDPRN PRN ORAL Constipation 08/25/19 12:45 09/24/19 12:44 08/27/19 06:14 Montelukast Sodium (Singulair) 10 mg DAILY ORAL 08/21/19 09:00 11/19/19 08:59 08/30/19 09:45 Morphine Sulfate (Morphine Sulfate) 2 mg Q4H PRN IVP pain scale 4-6 08/25/19 12:45 09/01/19 12:44 08/29/19 15:44 Morphine Sulfate (Morphine Sulfate) 4 mg Q4H PRN IVP pain score 7-10 08/25/19 12:45 09/01/19 12:44 08/30/19 00:53 Ondansetron HCl (Zofran) 4 mg Q6H PRN IVP Nausea & Vomiting 08/25/19 12:45 09/24/19 12:44 08/27/19 09:10 Pantoprazole (Protonix) 40 mg DAILY ORAL 08/21/19 09:00 09/20/19 08:59 08/30/19 09:45 Polyethylene Glycol (Miralax) 17 gm BEDTIME ORAL 08/30/19 21:00 09/29/19 20:59 Sennosides (Senokot) 8.6 mg BIDPRN PRN ORAL Constipation 08/25/19 12:45 09/24/19 12:44 Simethicone (Mylicon) 160 mg TID PO 08/21/19 13:00 11/19/19 12:59 08/30/19 09:45 Temazepam (RestoriL) 7.5 mg DAILYPRN PRN ORAL Insomnia 08/25/19 12:45 09/01/19 12:44 Panchito Silva MD August 30, 2019 12:53
[2019-08-30 16:00] VITALS: BP 123/76
--- NOTE | 2019-08-30 18:28 | Pulmonology Progress Note ---
Assessment/Plan Assessment/Plan Pulmonary Progress Note Assessment/Plan: cholecystitis gallstones abdominal pain s/p ERCP post op liban constipation no new complaints WCC continues to increase, ID prefers to keep another day PLAN laxatives postop care ID clearance zosyn gi and gs clearance monitor LFTs iv hydration impression, plan, and exam edited and reviewed in detail care discussed with RN Subjective Allergies: Coded Allergies: No Known Allergies (Unverified , 08/20/19) Subjective care noted postop cultures + from gallbladder on antibiotics + constipation wbc elevated liver enzymes elevated Objective Vital Signs Noted Laboratory Tests Noted 08/28/19 05:10: White Blood Count 14.5H, Red Blood Count 3.92L, Hemoglobin 12.0L, Hematocrit 34.3L, Mean Corpuscular Volume 88, Mean Corpuscular Hemoglobin 30.6, Mean Corpuscular Hemoglobin Concent 34.9, Red Cell Distribution Width 12.0, Platelet Count 339, Mean Platelet Volume 5.3L, Neutrophils (%) (Auto) 81.6H, Lymphocytes (%) (Auto) 10.3L, Monocytes (%) (Auto) 6.5, Eosinophils (%) (Auto) 1.1, Basophils (%) (Auto) 0.5, Sodium Level 140, Potassium Level 3.8, Chloride Level 105, Carbon Dioxide Level 29, Anion Gap 6, Blood Urea Nitrogen 9, Creatinine 0.8 , Estimat Glomerular Filtration Rate > 60, Glucose Level 104, Calcium Level 7.6L , Total Bilirubin 0.8, Aspartate Amino Transf (AST/SGOT) 34, Alanine Aminotransferase (ALT/SGPT) 68, Alkaline Phosphatase 340H, Total Protein 6.1L, Albumin 2.2L, Globulin 3.9, Albumin/Globulin Ratio 0.6L Height (Feet): 5 Height (Inches): 5.00 Weight (Pounds): 206 Objective WDWN NAD clear breath sounds bilaterally without rhonchi or wheeze [id number] without MRG NABS tender RUQ no CCE nonfocal Subjective ROS Limited/Unobtainable: No Constitutional: Reports: no symptoms Gastrointestinal/Abdominal: Reports: other - abdominal pain Musculoskeletal: Reports: pain, other - back pain Allergies: Coded Allergies: No Known Allergies (Unverified , 08/20/19) Objective Last 24 Hour Vital Signs Date Time Temp Pulse Resp B/P (MAP) Pulse Ox O2 Delivery O2 Flow Rate FiO2 08/30/19 16:00 98.9 76 18 123/76 (92) 97 08/30/19 12:00 98.8 69 16 123/65 (84) 97 08/30/19 09:00 Room Air 08/30/19 08:00 98.3 106 18 137/62 (87) 93 08/30/19 04:00 99.0 68 18 125/68 (87) 96 08/30/19 00:00 99.2 77 18 119/69 (86) 97 08/29/19 21:00 Room Air 08/29/19 20:00 98.2 67 18 124/65 (84) 97 Intake and Output 08/29/19 08/30/19 19:00 07:00 Intake Total 840 ml 150 ml Balance 840 ml 150 ml Intake Oral 840 ml 150 ml # Voids 4 3 General Appearance: no acute distress HEENT: mucous membranes moist Abdomen: other - soft Extremities: no edema Neurologic/Psychiatric: alert, oriented x 3, responsive Laboratory Tests 08/30/19 04:40: White Blood Count 19.0H, Red Blood Count 3.84L, Hemoglobin 11.8L, Hematocrit 33.4L, Mean Corpuscular Volume 87, Mean Corpuscular Hemoglobin 30.8, Mean Corpuscular Hemoglobin Concent 35.4, Red Cell Distribution Width 11.9, Platelet Count 422, Mean Platelet Volume 4.9L, Neutrophils (%) (Auto) , Lymphocytes (%) ( Auto) , Monocytes (%) (Auto) , Eosinophils (%) (Auto) , Basophils (%) (Auto) , Differential Total Cells Counted 100, Neutrophils % (Manual) 82H, Lymphocytes % (Manual) 10L, Monocytes % (Manual) 8, Eosinophils % (Manual) 0, Basophils % ( Manual) 0, Band Neutrophils 0, Platelet Estimate Adequate, Platelet Morphology Normal, Red Blood Cell Morphology Normal, Sodium Level 140, Potassium Level 4.2 , Chloride Level 104, Carbon Dioxide Level 28, Anion Gap 8, Blood Urea Nitrogen 11, Creatinine 0.9, Estimat Glomerular Filtration Rate > 60, Glucose Level 108H , Calcium Level 7.9L, Total Bilirubin 0.6, Aspartate Amino Transf (AST/SGOT) 33 , Alanine Aminotransferase (ALT/SGPT) 59, Alkaline Phosphatase 243H, Total Protein 6.3L, Albumin 2.1L, Globulin 4.2, Albumin/Globulin Ratio 0.5L Current Medications Medications (Trade) Dose Ordered Sig/Belen Route PRN Reason Start Time Stop Time Status Last Admin Dose Admin Acetaminophen (Tylenol) 650 mg Q4H PRN ORAL Mild Pain (Pain Scale 1-3) 08/21/19 02:45 09/20/19 02:44 08/22/19 21:24 Acetaminophen (Tylenol) 650 mg Q4H PRN ORAL FEVER 08/25/19 12:45 09/24/19 12:44 08/29/19 16:30 Al Hydroxide/Mg Hydroxide (Mylanta) 15 ml Q6H PRN ORAL DYSPEPSIA 08/25/19 12:45 09/24/19 12:44 Al Hydroxide/Mg Hydroxide (Mylanta) 30 ml Q4H PRN ORAL Indigestion/heartburn 08/21/19 02:45 09/20/19 02:44 08/22/19 21:27 Amoxicillin/ Clavulanate Potassium (Augmentin) 500 mg EVERY 8 HOURS ORAL 08/28/19 14:00 09/04/19 13:59 08/30/19 13:35 Atorvastatin Calcium (Lipitor) 10 mg BEDTIME ORAL 08/21/19 21:00 11/19/19 20:59 08/29/19 21:08 Diphenhydramine HCl (Benadryl) 25 mg Q8H PRN ORAL Itching/Pruritis 08/25/19 12:45 09/24/19 12:44 Docusate Sodium (Colace) 100 mg TWICE A DAY ORAL 08/25/19 18:00 09/24/19 17:59 08/30/19 17:17 Lactobacillus Acidophilus (Culturelle) 1 tab DAILY ORAL 08/21/19 09:00 09/20/19 08:59 08/30/19 09:45 Levofloxacin (Levaquin) 500 mg DAILY ORAL 08/28/19 11:00 09/04/19 10:59 08/30/19 09:46 Magnesium Hydroxide (Mom) 30 ml BIDPRN PRN ORAL Constipation 08/25/19 12:45 09/24/19 12:44 08/27/19 06:14 Montelukast Sodium (Singulair) 10 mg DAILY ORAL 08/21/19 09:00 11/19/19 08:59 08/30/19 09:45 Morphine Sulfate (Morphine Sulfate) 2 mg Q4H PRN IVP pain scale 4-6 08/25/19 12:45 09/01/19 12:44 08/29/19 15:44 Morphine Sulfate (Morphine Sulfate) 4 mg Q4H PRN IVP pain score 7-10 08/25/19 12:45 09/01/19 12:44 08/30/19 00:53 Ondansetron HCl (Zofran) 4 mg Q6H PRN IVP Nausea & Vomiting 08/25/19 12:45 09/24/19 12:44 08/27/19 09:10 Pantoprazole (Protonix) 40 mg DAILY ORAL 08/21/19 09:00 09/20/19 08:59 08/30/19 09:45 Polyethylene Glycol (Miralax) 17 gm BEDTIME ORAL 08/30/19 21:00 09/29/19 20:59 Sennosides (Senokot) 8.6 mg BIDPRN PRN ORAL Constipation 08/25/19 12:45 09/24/19 12:44 Simethicone (Mylicon) 160 mg TID PO 08/21/19 13:00 11/19/19 12:59 08/30/19 17:17 Temazepam (RestoriL) 7.5 mg DAILYPRN PRN ORAL Insomnia 08/25/19 12:45 09/01/19 12:44 Esau Holden MD August 30, 2019 18:28
[2019-08-30 20:00] VITALS: BP 133/70
[2019-08-30] MEDS: Miralax 17gm pkt ORAL SCH (21:18)
--- NOTE | 2019-08-30 21:30 | Surgery Progress Note ---
Surgery Progress Note Subjective Procedure Performed lap liban Additional Comments Patient seen examined bedside. States he is doing well. Just feels a little tired. No nausea vomiting fever chills. Tolerating diet. Passing flatus. Persistently has leukocytosis. Labs otherwise stable. Objective Last 24 Hour Vital Signs Date Time Temp Pulse Resp B/P (MAP) Pulse Ox O2 Delivery O2 Flow Rate FiO2 08/30/19 20:00 98.4 69 17 133/70 (91) 96 08/30/19 16:00 98.9 76 18 123/76 (92) 97 08/30/19 12:00 98.8 69 16 123/65 (84) 97 08/30/19 09:00 Room Air 08/30/19 08:00 98.3 106 18 137/62 (87) 93 08/30/19 04:00 99.0 68 18 125/68 (87) 96 08/30/19 00:00 99.2 77 18 119/69 (86) 97 I&O Intake and Output 08/29/19 08/30/19 19:00 07:00 Intake Total 840 ml 150 ml Balance 840 ml 150 ml Intake Oral 840 ml 150 ml # Voids 4 3 Dressing: dry Wound: clean Cardiovascular: RSR Respiratory: clear Abdomen: soft, non-tender, present bowel sounds Extremities: no tenderness, no cyanosis Laboratory Tests Test 08/30/19 04:40 White Blood Count 19.0 K/UL (4.8-10.8) H Red Blood Count 3.84 M/UL (4.70-6.10) L Hemoglobin 11.8 G/DL (14.2-18.0) L Hematocrit 33.4 % (42.0-52.0) L Mean Corpuscular Volume 87 FL (80-99) Mean Corpuscular Hemoglobin 30.8 PG (27.0-31.0) Mean Corpuscular Hemoglobin Concent 35.4 G/DL (32.0-36.0) Red Cell Distribution Width 11.9 % (11.6-14.8) Platelet Count 422 K/UL (150-450) Mean Platelet Volume 4.9 FL (6.5-10.1) L Neutrophils (%) (Auto) % (45.0-75.0) Lymphocytes (%) (Auto) % (20.0-45.0) Monocytes (%) (Auto) % (1.0-10.0) Eosinophils (%) (Auto) % (0.0-3.0) Basophils (%) (Auto) % (0.0-2.0) Differential Total Cells Counted 100 Neutrophils % (Manual) 82 % (45-75) H Lymphocytes % (Manual) 10 % (20-45) L Monocytes % (Manual) 8 % (1-10) Eosinophils % (Manual) 0 % (0-3) Basophils % (Manual) 0 % (0-2) Band Neutrophils 0 % (0-8) Platelet Estimate Adequate Platelet Morphology Normal Red Blood Cell Morphology Normal Sodium Level 140 MMOL/L (136-145) Potassium Level 4.2 MMOL/L (3.5-5.1) Chloride Level 104 MMOL/L (98-107) Carbon Dioxide Level 28 MMOL/L (21-32) Anion Gap 8 mmol/L (5-15) Blood Urea Nitrogen 11 mg/dL (7-18) Creatinine 0.9 MG/DL (0.55-1.30) Estimat Glomerular Filtration Rate > 60 mL/min (>60) Glucose Level 108 MG/DL (74-106) H Calcium Level 7.9 MG/DL (8.5-10.1) L Total Bilirubin 0.6 MG/DL (0.2-1.0) Aspartate Amino Transf (AST/SGOT) 33 U/L (15-37) Alanine Aminotransferase (ALT/SGPT) 59 U/L (12-78) Alkaline Phosphatase 243 U/L (46-116) H Total Protein 6.3 G/DL (6.4-8.2) L Albumin 2.1 G/DL (3.4-5.0) L Globulin 4.2 g/dL Albumin/Globulin Ratio 0.5 (1.0-2.7) L Assessment Post-op Diagnosis gangrenous necrotic cholecystectomy Plan Problems: (1) Cholecystitis Assessment & Plan: s/p lap liban 08/24 for infected gangrene gallbladder recovering on abx does not want to ambulate because of pain pain rx reviewed and will be given incentive spirometry lft's noted likely reactive from inflammation possible stone dislodged into duct? trend labs not ready for d/c will need oral abx on d/c pending labs rx written d/c planning Case discussed with GI MRCP reviewed with radiologist cbd stone stable afebrile, HD Stable labs noted npo iv fluids iv abx AM labs ERCP then cholecystectomy OR tomorrow thank you will follow with recs Liver: Unremarkable. Gallbladder: Distended gallbladder. No definite shadowing cholelithiasis. Mildly prominent 4 mm gallbladder wall. Possible small pericholecystic fluid. Correlate clinically for cholecystitis. Common bile duct: CBD 6 mm. Pancreas: Pancreas obscured. Kidneys: No hydronephrosis. Spleen: Unremarkable. Aorta: Unremarkable as visualized. Inferior vena cava: Unremarkable as visualized. IMPRESSION: Distended gallbladder. No definite shadowing cholelithiasis. Mildly prominent 4 mm gallbladder wall. Possible small pericholecystic fluid. Correlate clinically for cholecystitis. the gallbladder wall is somewhat edematous and the gallbladder is distended. The fat saturated images suggests some infiltration of the pericholecystic fat as well as a small amount of fluid adjacent to the tip of the liver. No filling defects to suggest gallstones are evident in the gallbladder lumen. However, there is a possible 8 mm filling defect in the gallbladder neck. In addition, there is a 7 mm diameter filling defect in the downstream common bile duct. The common bile duct measures 7 mm in diameter. There is no intrahepatic biliary ductal dilatation. The liver, pancreas, spleen, adrenals, kidneys are unremarkable. The prostate is enlarged. There are trace bilateral pleural effusions. Impression: Positive for choledocholithiasis. This results in mild biliary ductal dilatation. Suspect gallbladder neck stone. Mild gallbladder wall edema in some infiltration of the pericholecystic fat raises possibility of acute cholecystitis. Consider hepatobiliary nuclear scan for confirmation if there is high clinical suspicion. Evidence of trace free intraperitoneal fluid Trace bilateral pleural effusions Discharge planning repeat labs in a.m. Gallbladder micro noted. On p.o. antibiotics per infectious disease. Lopez Zuniga August 30, 2019 21:30
[2019-08-31] VITALS: BP 149/91
[2019-08-31 04:00] VITALS: BP 122/68
[2019-08-31 06:34] LABS: BASOPHILS % (AUTO) 0.4 % (0.0-2.0); EOSINOPHILS % (AUTO) 0.4 % (0.0-3.0); HEMATOCRIT 34.6 % (42.0-52.0); LYMPHOCYTES % (AUTO) 9.5 % (20.0-45.0); MEAN CORPUSCULAR VOLUME 88 FL (80-99); MONOCYTES % (AUTO) 7.2 % (1.0-10.0); NEUTROPHILS % (AUTO) 82.5 % (45.0-75.0); PLATELET COUNT 504 K/UL (150-450); RED BLOOD COUNT 3.94 M/UL (4.70-6.10); WHITE BLOOD COUNT 17.8 K/UL (4.8-10.8)
[2019-08-31 07:02] LABS: ALANINE AMINOTRANSFERASE 68 U/L (12-78); ALBUMIN 2.2 G/DL (3.4-5.0); ALBUMIN/GLOBULIN RATIO 0.5 (1.0-2.7); ALKALINE PHOSPHATASE 248 U/L (46-116); ANION GAP 6 mmol/L (5-15); ASPARTATE AMINO TRANSFERASE 45 U/L (15-37); BILIRUBIN,TOTAL 0.6 MG/DL (0.2-1.0); BLOOD UREA NITROGEN 9 mg/dL (7-18); CALCIUM 8.6 MG/DL (8.5-10.1); CARBON DIOXIDE 29 MMOL/L (21-32); CHLORIDE 103 MMOL/L (98-107); POTASSIUM 4.8 MMOL/L (3.5-5.1); SODIUM 138 MMOL/L (136-145)
[2019-08-31 08:00] VITALS: BP 106/71
[2019-08-31] MEDS: Docusate 100mg cap ORAL SCH ×2 (08:02→18:13)
[2019-08-31] MEDS: Levofloxacin 500mg tab ORAL SCH (08:02)
[2019-08-31] MEDS: Ascorbic Acid 500mg tab ORAL SCH (08:03)
[2019-08-31] MEDS: SIMETHICONE 80 MG PO SCH ×3 (08:03→18:12)
[2019-08-31] MEDS: Lactobacillus-GG tablet ORAL SCH (08:03)
[2019-08-31] MEDS: Montelukast 10mg tablet ORAL SCH (08:03)
--- NOTE | 2019-08-31 08:53 | General Progress Note ---
Assessment/Plan Status: unchanged Assessment/Plan: cholecystitis gallstones abdominal pain s/p ERCP post op liban constipation fevers elevated CRP and WBC PLAN laxatives postop care ID to clear on po [id number] gi and gs clearance monitor LFTs iv hydration impression, plan, and exam edited and reviewed in detail care discussed with RN Subjective Allergies: Coded Allergies: No Known Allergies (Unverified , 08/20/19) Subjective care noted wbc elevated elevated CRP and now with fevers liver enzymes elevated Objective Last 24 Hour Vital Signs Date Time Temp Pulse Resp B/P (MAP) Pulse Ox O2 Delivery O2 Flow Rate FiO2 08/31/19 08:00 99.3 80 16 106/71 (83) 94 08/31/19 04:00 98.9 63 18 122/68 (86) 97 08/31/19 00:00 100.4 93 18 149/91 (110) 96 08/30/19 23:52 100.1 08/30/19 21:00 Room Air 08/30/19 20:00 98.4 69 17 133/70 (91) 96 08/30/19 16:00 98.9 76 18 123/76 (92) 97 08/30/19 12:00 98.8 69 16 123/65 (84) 97 08/30/19 09:00 Room Air Intake and Output 08/30/19 08/31/19 19:00 07:00 Intake Total 600 ml 420 ml Balance 600 ml 420 ml Intake Oral 600 ml 420 ml # Voids 4 2 Laboratory Tests 08/31/19 05:10: White Blood Count 17.8H, Red Blood Count 3.94L, Hemoglobin 12.0L, Hematocrit 34.6L, Mean Corpuscular Volume 88, Mean Corpuscular Hemoglobin 30.4, Mean Corpuscular Hemoglobin Concent 34.6, Red Cell Distribution Width 12.0, Platelet Count 504H, Mean Platelet Volume 4.9L, Neutrophils (%) (Auto) 82.5H, Lymphocytes (%) (Auto) 9.5L, Monocytes (%) (Auto) 7.2, Eosinophils (%) (Auto) 0.4, Basophils (%) (Auto) 0.4, Erythrocyte Sedimentation Rate 83H, Sodium Level 138, Potassium Level 4.8, Chloride Level 103, Carbon Dioxide Level 29, Anion Gap 6, Blood Urea Nitrogen 9, Creatinine 1.0, Estimat Glomerular Filtration Rate > 60, Glucose Level 102, Calcium Level 8.6, Total Bilirubin 0.6, Aspartate Amino Transf (AST/SGOT) 45H, Alanine Aminotransferase (ALT/SGPT) 68, Alkaline Phosphatase 248H, C-Reactive Protein, Quantitative 13.7H, Total Protein 6.8, Albumin 2.2L, Globulin 4.6, Albumin/Globulin Ratio 0.5L Height (Feet): 5 Height (Inches): 5.00 Weight (Pounds): 206 Objective WDWN NAD clear breath sounds bilaterally without rhonchi or wheeze [id number] without MRG NABS tender RUQ mild no CCE nonfocal Aaron Cordova MD August 31, 2019 08:53
--- NOTE | 2019-08-31 10:07 | General Progress Note ---
Assessment/Plan Problem List: (1) Choledocholithiasis ICD Codes: K80.50 - Calculus of bile duct without cholangitis or cholecystitis without obstruction SNOMED: 708174454 (2) Cholecystitis ICD Codes: K81.9 - Cholecystitis, unspecified SNOMED: 92688924 (3) UTI (urinary tract infection) ICD Codes: N39.0 - Urinary tract infection, site not specified SNOMED: 21786481 Qualifiers: Qualified Codes: N30.01 - Acute cystitis with hematuria Status: unchanged Assessment/Plan: s/p ERCP s/p cholecystectomy POD #5 elevated LFTS>>> improving d/w surg will monitor bowel regimen repeat labs will fu Subjective ROS Limited/Unobtainable: Yes Allergies: Coded Allergies: No Known Allergies (Unverified , 08/20/19) Objective Last 24 Hour Vital Signs Date Time Temp Pulse Resp B/P (MAP) Pulse Ox O2 Delivery O2 Flow Rate FiO2 08/31/19 08:20 Room Air 08/31/19 08:00 99.3 80 16 106/71 (83) 94 08/31/19 04:00 98.9 63 18 122/68 (86) 97 08/31/19 00:00 100.4 93 18 149/91 (110) 96 08/30/19 23:52 100.1 08/30/19 21:00 Room Air 08/30/19 20:00 98.4 69 17 133/70 (91) 96 08/30/19 16:00 98.9 76 18 123/76 (92) 97 08/30/19 12:00 98.8 69 16 123/65 (84) 97 Intake and Output 08/30/19 08/31/19 19:00 07:00 Intake Total 600 ml 420 ml Balance 600 ml 420 ml Intake Oral 600 ml 420 ml # Voids 4 2 Laboratory Tests 08/31/19 05:10: White Blood Count 17.8H, Red Blood Count 3.94L, Hemoglobin 12.0L, Hematocrit 34.6L, Mean Corpuscular Volume 88, Mean Corpuscular Hemoglobin 30.4, Mean Corpuscular Hemoglobin Concent 34.6, Red Cell Distribution Width 12.0, Platelet Count 504H, Mean Platelet Volume 4.9L, Neutrophils (%) (Auto) 82.5H, Lymphocytes (%) (Auto) 9.5L, Monocytes (%) (Auto) 7.2, Eosinophils (%) (Auto) 0.4, Basophils (%) (Auto) 0.4, Erythrocyte Sedimentation Rate 83H, Sodium Level 138, Potassium Level 4.8, Chloride Level 103, Carbon Dioxide Level 29, Anion Gap 6, Blood Urea Nitrogen 9, Creatinine 1.0, Estimat Glomerular Filtration Rate > 60, Glucose Level 102, Calcium Level 8.6, Total Bilirubin 0.6, Aspartate Amino Transf (AST/SGOT) 45H, Alanine Aminotransferase (ALT/SGPT) 68, Alkaline Phosphatase 248H, C-Reactive Protein, Quantitative 13.7H, Total Protein 6.8, Albumin 2.2L, Globulin 4.6, Albumin/Globulin Ratio 0.5L Height (Feet): 5 Height (Inches): 5.00 Weight (Pounds): 206 General Appearance: alert EENT: normal ENT inspection Neck: supple Cardiovascular: normal rate Respiratory/Chest: decreased breath sounds Abdomen: normal bowel sounds, non tender, soft Extremities: non-tender Regino Lugo MD August 31, 2019 10:07
--- NOTE | 2019-08-31 11:04 | Infectious Diseases Prog Note ---
Assessment/Plan Assessment/Plan antibiotics : augmentin, levoquin A 1. acute gangrenous cholecystitis with E. coli, enterococcus, propionibacterium 2. Leukocytosis improving 3. Gallstones 4. fever improving P 1. continue augmentin, levoquin po 3 more days 2. will follow up cultures Subjective Constitutional: Denies: fever, chills Respiratory: Denies: shortness of breath, dry cough Gastrointestinal/Abdominal: Denies: nausea, vomiting, diarrhea Musculoskeletal: Reports: pain - in abdomen decreasing Allergies: Coded Allergies: No Known Allergies (Unverified , 08/20/19) Objective Vital Signs Last 24 Hour Vital Signs Date Time Temp Pulse Resp B/P (MAP) Pulse Ox O2 Delivery O2 Flow Rate FiO2 08/31/19 08:20 Room Air 08/31/19 08:00 99.3 80 16 106/71 (83) 94 08/31/19 04:00 98.9 63 18 122/68 (86) 97 08/31/19 00:00 100.4 93 18 149/91 (110) 96 08/30/19 23:52 100.1 08/30/19 21:00 Room Air 08/30/19 20:00 98.4 69 17 133/70 (91) 96 08/30/19 16:00 98.9 76 18 123/76 (92) 97 08/30/19 12:00 98.8 69 16 123/65 (84) 97 Height (Feet): 5 Height (Inches): 5.00 Weight (Pounds): 206 Respiratory/Chest: lungs clear Cardiovascular: normal rate, regular rhythm, no gallop/murmur Abdomen: soft, non tender, other - wounds clean Extremities: no edema Laboratory Tests Test 08/31/19 05:10 White Blood Count 17.8 K/UL (4.8-10.8) H Red Blood Count 3.94 M/UL (4.70-6.10) L Hemoglobin 12.0 G/DL (14.2-18.0) L Hematocrit 34.6 % (42.0-52.0) L Mean Corpuscular Volume 88 FL (80-99) Mean Corpuscular Hemoglobin 30.4 PG (27.0-31.0) Mean Corpuscular Hemoglobin Concent 34.6 G/DL (32.0-36.0) Red Cell Distribution Width 12.0 % (11.6-14.8) Platelet Count 504 K/UL (150-450) H Mean Platelet Volume 4.9 FL (6.5-10.1) L Neutrophils (%) (Auto) 82.5 % (45.0-75.0) H Lymphocytes (%) (Auto) 9.5 % (20.0-45.0) L Monocytes (%) (Auto) 7.2 % (1.0-10.0) Eosinophils (%) (Auto) 0.4 % (0.0-3.0) Basophils (%) (Auto) 0.4 % (0.0-2.0) Erythrocyte Sedimentation Rate 83 MM/HR (0-20) H Sodium Level 138 MMOL/L (136-145) Potassium Level 4.8 MMOL/L (3.5-5.1) Chloride Level 103 MMOL/L (98-107) Carbon Dioxide Level 29 MMOL/L (21-32) Anion Gap 6 mmol/L (5-15) Blood Urea Nitrogen 9 mg/dL (7-18) Creatinine 1.0 MG/DL (0.55-1.30) Estimat Glomerular Filtration Rate > 60 mL/min (>60) Glucose Level 102 MG/DL (74-106) Calcium Level 8.6 MG/DL (8.5-10.1) Total Bilirubin 0.6 MG/DL (0.2-1.0) Aspartate Amino Transf (AST/SGOT) 45 U/L (15-37) H Alanine Aminotransferase (ALT/SGPT) 68 U/L (12-78) Alkaline Phosphatase 248 U/L (46-116) H C-Reactive Protein, Quantitative 13.7 mg/dL (0.00-0.90) H Total Protein 6.8 G/DL (6.4-8.2) Albumin 2.2 G/DL (3.4-5.0) L Globulin 4.6 g/dL Albumin/Globulin Ratio 0.5 (1.0-2.7) L Current Medications Medications (Trade) Dose Ordered Sig/Belen Route PRN Reason Start Time Stop Time Status Last Admin Dose Admin Acetaminophen (Tylenol) 650 mg Q4H PRN ORAL Mild Pain (Pain Scale 1-3) 08/21/19 02:45 09/20/19 02:44 08/22/19 21:24 Acetaminophen (Tylenol) 650 mg Q4H PRN ORAL FEVER 08/25/19 12:45 09/24/19 12:44 08/30/19 23:22 Al Hydroxide/Mg Hydroxide (Mylanta) 15 ml Q6H PRN ORAL DYSPEPSIA 08/25/19 12:45 09/24/19 12:44 Al Hydroxide/Mg Hydroxide (Mylanta) 30 ml Q4H PRN ORAL Indigestion/heartburn 08/21/19 02:45 09/20/19 02:44 08/22/19 21:27 Amoxicillin/ Clavulanate Potassium (Augmentin) 500 mg EVERY 8 HOURS ORAL 08/28/19 14:00 09/04/19 13:59 08/31/19 05:04 Ascorbic Acid (Vitamin C) 500 mg DAILY ORAL 08/31/19 09:00 09/30/19 08:59 08/31/19 08:03 Atorvastatin Calcium (Lipitor) 10 mg BEDTIME ORAL 08/21/19 21:00 11/19/19 20:59 08/30/19 21:18 Diphenhydramine HCl (Benadryl) 25 mg Q8H PRN ORAL Itching/Pruritis 08/25/19 12:45 09/24/19 12:44 Docusate Sodium (Colace) 100 mg TWICE A DAY ORAL 08/25/19 18:00 09/24/19 17:59 08/31/19 08:02 Lactobacillus Acidophilus (Culturelle) 1 tab DAILY ORAL 08/21/19 09:00 09/20/19 08:59 08/31/19 08:03 Levofloxacin (Levaquin) 500 mg DAILY ORAL 08/28/19 11:00 09/04/19 10:59 08/31/19 08:02 Magnesium Hydroxide (Mom) 30 ml BIDPRN PRN ORAL Constipation 08/25/19 12:45 09/24/19 12:44 08/27/19 06:14 Montelukast Sodium (Singulair) 10 mg DAILY ORAL 08/21/19 09:00 11/19/19 08:59 08/31/19 08:03 Morphine Sulfate (Morphine Sulfate) 2 mg Q4H PRN IVP pain scale 4-6 08/25/19 12:45 09/01/19 12:44 5/2/20 15:44 Morphine Sulfate (Morphine Sulfate) 4 mg Q4H PRN IVP pain score 7-10 08/25/19 12:45 09/01/19 12:44 08/30/19 00:53 Multivitamins (Multivitamins) 1 tab DAILY ORAL 08/31/19 09:00 09/30/19 08:59 08/31/19 08:02 Ondansetron HCl (Zofran) 4 mg Q6H PRN IVP Nausea & Vomiting 08/25/19 12:45 09/24/19 12:44 08/27/19 09:10 Pantoprazole (Protonix) 40 mg DAILY ORAL 08/21/19 09:00 09/20/19 08:59 08/31/19 08:03 Polyethylene Glycol (Miralax) 17 gm BEDTIME ORAL 08/30/19 21:00 09/29/19 20:59 08/30/19 21:18 Sennosides (Senokot) 8.6 mg BIDPRN PRN ORAL Constipation 08/25/19 12:45 09/24/19 12:44 Simethicone (Mylicon) 160 mg TID PO 08/21/19 13:00 11/19/19 12:59 08/31/19 08:03 Temazepam (RestoriL) 7.5 mg DAILYPRN PRN ORAL Insomnia 08/25/19 12:45 09/01/19 12:44 Armando Lopez MD August 31, 2019 11:04
[2019-08-31 11:34] VITALS: BP 128/73
--- NOTE | 2019-08-31 12:50 | CDS Physician Query ---
Clarification is required for compliance, coding accuracy, and to reflect severity of illness for this patient Dear Dr. Aaron Cordova Date: 08/31/2019 CDS name: Angela Del Cid Clinical Documentation: HNP: 69-year-old male, presents with significant right upper quadrant pain, associated nausea, vomiting...Transaminitis, cholecystitis , leukocytosis, distended gallbladder, gallstones Op note: POSTOPERATIVE DIAGNOSIS: Gangrenous, necrotic, infected cholecystitis. Vitals/labs on 08/20: WBC 14.3, Temp 101.2, HR 82, RR 18 Treatment: IV medications (discontinued) - ceftriaxone, cefazolin, pip-tazo. Oral meds: levofloxacin, amox-clav According to the clinical indications above, please indicate below the condition PHYSICIAN RESPONSE: [] Sepsis [] SIRS [] SIRS with organ dysfunction [] Septic Shock [] Not applicable [x] Other: Present on Admission: [x] Yes [] No [] Clinically Undetermined Physician signature Date Please also document in your Progress Notes and/or Discharge Summary and indicate if the condition was present on admission. DAVIDSOND
--- NOTE | 2019-08-31 14:54 | Surgery Progress Note ---
Surgery Progress Note Subjective Procedure Performed lap liban Symptoms: improved Objective Last 24 Hour Vital Signs Date Time Temp Pulse Resp B/P (MAP) Pulse Ox O2 Delivery O2 Flow Rate FiO2 08/31/19 11:34 99.5 86 19 128/73 (91) 97 08/31/19 08:20 Room Air 08/31/19 08:00 99.3 80 16 106/71 (83) 94 08/31/19 04:00 98.9 63 18 122/68 (86) 97 08/31/19 00:00 100.4 93 18 149/91 (110) 96 08/30/19 23:52 100.1 08/30/19 21:00 Room Air 08/30/19 20:00 98.4 69 17 133/70 (91) 96 08/30/19 16:00 98.9 76 18 123/76 (92) 97 I&O Intake and Output 08/30/19 08/31/19 19:00 07:00 Intake Total 600 ml 420 ml Balance 600 ml 420 ml Intake Oral 600 ml 420 ml # Voids 4 2 Dressing: dry Wound: clean Cardiovascular: RSR Respiratory: clear Abdomen: soft, non-tender, present bowel sounds Extremities: no cyanosis Laboratory Tests Test 08/31/19 05:10 White Blood Count 17.8 K/UL (4.8-10.8) H Red Blood Count 3.94 M/UL (4.70-6.10) L Hemoglobin 12.0 G/DL (14.2-18.0) L Hematocrit 34.6 % (42.0-52.0) L Mean Corpuscular Volume 88 FL (80-99) Mean Corpuscular Hemoglobin 30.4 PG (27.0-31.0) Mean Corpuscular Hemoglobin Concent 34.6 G/DL (32.0-36.0) Red Cell Distribution Width 12.0 % (11.6-14.8) Platelet Count 504 K/UL (150-450) H Mean Platelet Volume 4.9 FL (6.5-10.1) L Neutrophils (%) (Auto) 82.5 % (45.0-75.0) H Lymphocytes (%) (Auto) 9.5 % (20.0-45.0) L Monocytes (%) (Auto) 7.2 % (1.0-10.0) Eosinophils (%) (Auto) 0.4 % (0.0-3.0) Basophils (%) (Auto) 0.4 % (0.0-2.0) Erythrocyte Sedimentation Rate 83 MM/HR (0-20) H Sodium Level 138 MMOL/L (136-145) Potassium Level 4.8 MMOL/L (3.5-5.1) Chloride Level 103 MMOL/L (98-107) Carbon Dioxide Level 29 MMOL/L (21-32) Anion Gap 6 mmol/L (5-15) Blood Urea Nitrogen 9 mg/dL (7-18) Creatinine 1.0 MG/DL (0.55-1.30) Estimat Glomerular Filtration Rate > 60 mL/min (>60) Glucose Level 102 MG/DL (74-106) Calcium Level 8.6 MG/DL (8.5-10.1) Total Bilirubin 0.6 MG/DL (0.2-1.0) Aspartate Amino Transf (AST/SGOT) 45 U/L (15-37) H Alanine Aminotransferase (ALT/SGPT) 68 U/L (12-78) Alkaline Phosphatase 248 U/L (46-116) H C-Reactive Protein, Quantitative 13.7 mg/dL (0.00-0.90) H Total Protein 6.8 G/DL (6.4-8.2) Albumin 2.2 G/DL (3.4-5.0) L Globulin 4.6 g/dL Albumin/Globulin Ratio 0.5 (1.0-2.7) L Assessment Post-op Diagnosis gangrenous necrotic cholecystectomy Plan Problems: (1) Cholecystitis Assessment & Plan: s/p lap liban 08/24 for infected gangrene gallbladder recovering on abx does not want to ambulate because of pain pain rx reviewed and will be given incentive spirometry lft's noted likely reactive from inflammation possible stone dislodged into duct? trend labs not ready for d/c will need oral abx on d/c pending labs rx written d/c planning Case discussed with GI MRCP reviewed with radiologist cbd stone stable afebrile, HD Stable labs noted npo iv fluids iv abx AM labs ERCP then cholecystectomy OR tomorrow thank you will follow with recs Liver: Unremarkable. Gallbladder: Distended gallbladder. No definite shadowing cholelithiasis. Mildly prominent 4 mm gallbladder wall. Possible small pericholecystic fluid. Correlate clinically for cholecystitis. Common bile duct: CBD 6 mm. Pancreas: Pancreas obscured. Kidneys: No hydronephrosis. Spleen: Unremarkable. Aorta: Unremarkable as visualized. Inferior vena cava: Unremarkable as visualized. IMPRESSION: Distended gallbladder. No definite shadowing cholelithiasis. Mildly prominent 4 mm gallbladder wall. Possible small pericholecystic fluid. Correlate clinically for cholecystitis. the gallbladder wall is somewhat edematous and the gallbladder is distended. The fat saturated images suggests some infiltration of the pericholecystic fat as well as a small amount of fluid adjacent to the tip of the liver. No filling defects to suggest gallstones are evident in the gallbladder lumen. However, there is a possible 8 mm filling defect in the gallbladder neck. In addition, there is a 7 mm diameter filling defect in the downstream common bile duct. The common bile duct measures 7 mm in diameter. There is no intrahepatic biliary ductal dilatation. The liver, pancreas, spleen, adrenals, kidneys are unremarkable. The prostate is enlarged. There are trace bilateral pleural effusions. Impression: Positive for choledocholithiasis. This results in mild biliary ductal dilatation. Suspect gallbladder neck stone. Mild gallbladder wall edema in some infiltration of the pericholecystic fat raises possibility of acute cholecystitis. Consider hepatobiliary nuclear scan for confirmation if there is high clinical suspicion. Evidence of trace free intraperitoneal fluid Trace bilateral pleural effusions Discharge planning repeat labs in a.m. Gallbladder micro noted. On p.o. antibiotics per infectious disease. Lopez Zuniga August 31, 2019 14:54
[2019-08-31 16:00] VITALS: BP 103/60
[2019-08-31 20:00] VITALS: BP 113/62
[2019-08-31] MEDS: Miralax 17gm pkt ORAL SCH (21:00)
[2019-09-01] VITALS: BP 116/65
[2019-09-01 04:00] VITALS: BP 112/61
[2019-09-01 08:00] VITALS: BP 102/62
--- NOTE | 2019-09-01 08:58 | General Progress Note ---
Assessment/Plan Status: unchanged Assessment/Plan: cholecystitis gallstones abdominal pain s/p ERCP post op liban constipation fevers elevated CRP and WBC PLAN laxatives postop care ID to clear on po antibiotics gi and gs clearance monitor LFTs await further improvement in fevers/wbc prior to dc impression, plan, and exam edited and reviewed in detail care discussed with RN Subjective Allergies: Coded Allergies: No Known Allergies (Unverified , 08/20/19) Subjective care noted wbc elevated elevated CRP still with low grade fevers liver enzymes elevated Objective Last 24 Hour Vital Signs Date Time Temp Pulse Resp B/P (MAP) Pulse Ox O2 Delivery O2 Flow Rate FiO2 09/01/19 08:00 98.7 93 18 102/62 (75) 94 09/01/19 04:00 99.9 80 19 112/61 (78) 99 09/01/19 00:00 98.9 67 18 116/65 (82) 98 08/31/19 21:30 98.0 08/31/19 21:00 Room Air 08/31/19 20:00 100.4 76 17 113/62 (79) 97 08/31/19 16:00 99.4 71 20 103/60 (74) 97 08/31/19 11:34 99.5 86 19 128/73 (91) 97 Intake and Output 08/31/19 09/01/19 19:00 07:00 Intake Total 976 ml Balance 976 ml Intake Oral 976 ml # Voids 7 2 # Bowel Movements 6 Height (Feet): 5 Height (Inches): 5.00 Weight (Pounds): 206 Objective WDWN NAD clear breath sounds bilaterally without rhonchi or wheeze [id number] without MRG NABS tender RUQ mild no CCE nonfocal Aaron Cordova MD September 01, 2019 08:58
[2019-09-01] MEDS: Docusate 100mg cap ORAL SCH ×2 (09:00→16:55)
[2019-09-01] MEDS: Ascorbic Acid 500mg tab ORAL SCH (09:28)
[2019-09-01] MEDS: Lactobacillus-GG tablet ORAL SCH (09:28)
[2019-09-01] MEDS: SIMETHICONE 80 MG PO SCH ×3 (09:28→16:58)
[2019-09-01] MEDS: Levofloxacin 500mg tab ORAL SCH (09:28)
[2019-09-01] MEDS: Montelukast 10mg tablet ORAL SCH (09:31)
[2019-09-01 09:52] LABS: BASOPHILS % (AUTO) 0.6 % (0.0-2.0); EOSINOPHILS % (AUTO) 0.4 % (0.0-3.0); HEMOGLOBIN 13.1 G/DL (14.2-18.0); LYMPHOCYTES % (AUTO) 14.4 % (20.0-45.0); MEAN CORPUSCULAR VOLUME 90 FL (80-99); MONOCYTES % (AUTO) 7.8 % (1.0-10.0); NEUTROPHILS % (AUTO) 76.8 % (45.0-75.0); PLATELET COUNT 346 K/UL (150-450); RED BLOOD COUNT 4.35 M/UL (4.70-6.10); RED CELL DISTRIBUTION WIDTH 11.4 % (11.6-14.8); WHITE BLOOD COUNT 12.7 K/UL (4.8-10.8)
--- NOTE | 2019-09-01 10:40 | Infectious Diseases Prog Note ---
Assessment/Plan Assessment/Plan antibiotics : augmentin, levoquin A 1. acute gangrenous cholecystitis with E. coli, enterococcus, propionibacterium 2. Leukocytosis improving 3. Gallstones 4. fever improving P 1. continue augmentin, levoquin po 2 more days 2. will follow up cultures Subjective Constitutional: Denies: fever, chills Respiratory: Denies: shortness of breath, dry cough Gastrointestinal/Abdominal: Denies: nausea, vomiting, diarrhea Musculoskeletal: Reports: pain - decreased Allergies: Coded Allergies: No Known Allergies (Unverified , 08/20/19) Objective Vital Signs Last 24 Hour Vital Signs Date Time Temp Pulse Resp B/P (MAP) Pulse Ox O2 Delivery O2 Flow Rate FiO2 09/01/19 09:28 Room Air 09/01/19 08:00 98.7 93 18 102/62 (75) 94 09/01/19 04:00 99.9 80 19 112/61 (78) 99 09/01/19 00:00 98.9 67 18 116/65 (82) 98 08/31/19 21:30 98.0 08/31/19 21:00 Room Air 08/31/19 20:00 100.4 76 17 113/62 (79) 97 08/31/19 16:00 99.4 71 20 103/60 (74) 97 08/31/19 11:34 99.5 86 19 128/73 (91) 97 Height (Feet): 5 Height (Inches): 5.00 Weight (Pounds): 206 Respiratory/Chest: lungs clear Cardiovascular: normal rate, regular rhythm, no gallop/murmur Abdomen: soft, non tender, other - wounds clean Extremities: no edema Laboratory Tests Test 09/01/19 09:30 White Blood Count 12.7 K/UL (4.8-10.8) H Red Blood Count 4.35 M/UL (4.70-6.10) L Hemoglobin 13.1 G/DL (14.2-18.0) L Hematocrit 39.0 % (42.0-52.0) L Mean Corpuscular Volume 90 FL (80-99) Mean Corpuscular Hemoglobin 30.1 PG (27.0-31.0) Mean Corpuscular Hemoglobin Concent 33.6 G/DL (32.0-36.0) Red Cell Distribution Width 11.4 % (11.6-14.8) L Platelet Count 346 K/UL (150-450) Mean Platelet Volume 6.2 FL (6.5-10.1) L Neutrophils (%) (Auto) 76.8 % (45.0-75.0) H Lymphocytes (%) (Auto) 14.4 % (20.0-45.0) L Monocytes (%) (Auto) 7.8 % (1.0-10.0) Eosinophils (%) (Auto) 0.4 % (0.0-3.0) Basophils (%) (Auto) 0.6 % (0.0-2.0) Current Medications Medications (Trade) Dose Ordered Sig/Belen Route PRN Reason Start Time Stop Time Status Last Admin Dose Admin Acetaminophen (Tylenol) 650 mg Q4H PRN ORAL Mild Pain (Pain Scale 1-3) 08/21/19 02:45 09/20/19 02:44 09/01/19 07:05 Acetaminophen (Tylenol) 650 mg Q4H PRN ORAL FEVER 08/25/19 12:45 09/24/19 12:44 08/30/19 23:22 Al Hydroxide/Mg Hydroxide (Mylanta) 15 ml Q6H PRN ORAL DYSPEPSIA 08/25/19 12:45 09/24/19 12:44 Amoxicillin/ Clavulanate Potassium (Augmentin) 500 mg EVERY 8 HOURS ORAL 08/28/19 14:00 09/04/19 13:59 09/01/19 06:33 Ascorbic Acid (Vitamin C) 500 mg DAILY ORAL 08/31/19 09:00 09/30/19 08:59 09/01/19 09:28 Atorvastatin Calcium (Lipitor) 10 mg BEDTIME ORAL 08/21/19 21:00 11/19/19 20:59 08/31/19 21:12 Diphenhydramine HCl (Benadryl) 25 mg Q8H PRN ORAL Itching/Pruritis 08/25/19 12:45 09/24/19 12:44 Docusate Sodium (Colace) 100 mg TWICE A DAY ORAL 08/25/19 18:00 09/24/19 17:59 08/31/19 18:13 Lactobacillus Acidophilus (Culturelle) 1 tab DAILY ORAL 08/21/19 09:00 09/20/19 08:59 09/01/19 09:28 Levofloxacin (Levaquin) 500 mg DAILY ORAL 08/28/19 11:00 09/04/19 10:59 09/01/19 09:28 Magnesium Hydroxide (Mom) 30 ml BIDPRN PRN ORAL Constipation 08/25/19 12:45 09/24/19 12:44 08/27/19 06:14 Montelukast Sodium (Singulair) 10 mg DAILY ORAL 08/21/19 09:00 11/19/19 08:59 09/01/19 09:31 Morphine Sulfate (Morphine Sulfate) 2 mg Q4H PRN IVP pain scale 4-6 08/25/19 12:45 09/01/19 12:44 08/29/19 15:44 Morphine Sulfate (Morphine Sulfate) 4 mg Q4H PRN IVP pain score 7-10 08/25/19 12:45 09/01/19 12:44 08/30/19 00:53 Multivitamins (Multivitamins) 1 tab DAILY ORAL 08/31/19 09:00 09/30/19 08:59 09/01/19 09:28 Ondansetron HCl (Zofran) 4 mg Q6H PRN IVP Nausea & Vomiting 08/25/19 12:45 09/24/19 12:44 08/27/19 09:10 Pantoprazole (Protonix) 40 mg DAILY ORAL 08/21/19 09:00 09/20/19 08:59 09/01/19 09:28 Polyethylene Glycol (Miralax) 17 gm BEDTIME ORAL 08/30/19 21:00 09/29/19 20:59 08/30/19 21:18 Sennosides (Senokot) 8.6 mg BIDPRN PRN ORAL Constipation 08/25/19 12:45 09/24/19 12:44 Simethicone (Mylicon) 160 mg TID PO 08/21/19 13:00 11/19/19 12:59 09/01/19 09:28 Temazepam (RestoriL) 7.5 mg DAILYPRN PRN ORAL Insomnia 08/25/19 12:45 09/01/19 12:44 Armando Lopez MD September 01, 2019 10:40
--- NOTE | 2019-09-01 11:02 | General Progress Note ---
Assessment/Plan Problem List: (1) Choledocholithiasis ICD Codes: K80.50 - Calculus of bile duct without cholangitis or cholecystitis without obstruction SNOMED: 635142557 (2) Cholecystitis ICD Codes: K81.9 - Cholecystitis, unspecified SNOMED: 46824236 (3) UTI (urinary tract infection) ICD Codes: N39.0 - Urinary tract infection, site not specified SNOMED: 86617528 Qualifiers: Qualified Codes: N30.01 - Acute cystitis with hematuria Status: unchanged Assessment/Plan: s/p ERCP s/p cholecystectomy POD #6 elevated LFTS>>> improving d/w surg will monitor bowel regimen repeat labs will fu Subjective ROS Limited/Unobtainable: No Allergies: Coded Allergies: No Known Allergies (Unverified , 08/20/19) Objective Last 24 Hour Vital Signs Date Time Temp Pulse Resp B/P (MAP) Pulse Ox O2 Delivery O2 Flow Rate FiO2 09/01/19 09:28 Room Air 09/01/19 08:00 98.7 93 18 102/62 (75) 94 09/01/19 04:00 99.9 80 19 112/61 (78) 99 09/01/19 00:00 98.9 67 18 116/65 (82) 98 08/31/19 21:30 98.0 08/31/19 21:00 Room Air 08/31/19 20:00 100.4 76 17 113/62 (79) 97 08/31/19 16:00 99.4 71 20 103/60 (74) 97 08/31/19 11:34 99.5 86 19 128/73 (91) 97 Intake and Output 08/31/19 09/01/19 19:00 07:00 Intake Total 976 ml Balance 976 ml Intake Oral 976 ml # Voids 7 2 # Bowel Movements 6 Laboratory Tests 09/01/19 09:30: White Blood Count 12.7H, Red Blood Count 4.35L, Hemoglobin 13.1L, Hematocrit 39.0L, Mean Corpuscular Volume 90, Mean Corpuscular Hemoglobin 30.1, Mean Corpuscular Hemoglobin Concent 33.6, Red Cell Distribution Width 11.4L, Platelet Count 346, Mean Platelet Volume 6.2L, Neutrophils (%) (Auto) 76.8H, Lymphocytes (%) (Auto) 14.4L, Monocytes (%) (Auto) 7.8, Eosinophils (%) (Auto) 0.4, Basophils (%) (Auto) 0.6 Height (Feet): 5 Height (Inches): 5.00 Weight (Pounds): 206 General Appearance: no apparent distress EENT: normal ENT inspection Neck: supple Cardiovascular: normal rate Respiratory/Chest: decreased breath sounds Abdomen: normal bowel sounds, non tender, soft Extremities: non-tender Regino Lugo MD September 01, 2019 11:02
[2019-09-01 12:00] VITALS: BP 126/76
[2019-09-01 16:00] VITALS: BP 120/67
--- NOTE | 2019-09-01 16:13 | Surgery Progress Note ---
Surgery Progress Note Subjective Procedure Performed lap liban Symptoms: improved, tolerating diet, voiding well, passing flatus, BM Additional Comments d/c planning Objective Last 24 Hour Vital Signs Date Time Temp Pulse Resp B/P (MAP) Pulse Ox O2 Delivery O2 Flow Rate FiO2 09/01/19 12:00 98.3 94 19 126/76 (93) 97 09/01/19 09:28 Room Air 09/01/19 08:00 98.7 93 18 102/62 (75) 94 09/01/19 04:00 99.9 80 19 112/61 (78) 99 09/01/19 00:00 98.9 67 18 116/65 (82) 98 08/31/19 21:30 98.0 08/31/19 21:00 Room Air 08/31/19 20:00 100.4 76 17 113/62 (79) 97 I&O Intake and Output 08/31/19 09/01/19 19:00 07:00 Intake Total 976 ml Balance 976 ml Intake Oral 976 ml # Voids 7 2 # Bowel Movements 6 Dressing: dry Wound: clean Cardiovascular: RSR Respiratory: clear Abdomen: soft, non-tender, present bowel sounds Extremities: no edema, no tenderness, no cyanosis Laboratory Tests Test 09/01/19 09:30 White Blood Count 12.7 K/UL (4.8-10.8) H Red Blood Count 4.35 M/UL (4.70-6.10) L Hemoglobin 13.1 G/DL (14.2-18.0) L Hematocrit 39.0 % (42.0-52.0) L Mean Corpuscular Volume 90 FL (80-99) Mean Corpuscular Hemoglobin 30.1 PG (27.0-31.0) Mean Corpuscular Hemoglobin Concent 33.6 G/DL (32.0-36.0) Red Cell Distribution Width 11.4 % (11.6-14.8) L Platelet Count 346 K/UL (150-450) Mean Platelet Volume 6.2 FL (6.5-10.1) L Neutrophils (%) (Auto) 76.8 % (45.0-75.0) H Lymphocytes (%) (Auto) 14.4 % (20.0-45.0) L Monocytes (%) (Auto) 7.8 % (1.0-10.0) Eosinophils (%) (Auto) 0.4 % (0.0-3.0) Basophils (%) (Auto) 0.6 % (0.0-2.0) Assessment Post-op Diagnosis gangrenous necrotic cholecystectomy Plan Problems: (1) Cholecystitis Assessment & Plan: s/p lap liban 08/24 for infected gangrene gallbladder recovering on abx does not want to ambulate because of pain pain rx reviewed and will be given incentive spirometry lft's noted likely reactive from inflammation possible stone dislodged into duct? trend labs not ready for d/c will need oral abx on d/c pending labs rx written d/c planning Case discussed with GI MRCP reviewed with radiologist cbd stone stable afebrile, HD Stable labs noted npo iv fluids iv abx AM labs ERCP then cholecystectomy OR tomorrow thank you will follow with recs Liver: Unremarkable. Gallbladder: Distended gallbladder. No definite shadowing cholelithiasis. Mildly prominent 4 mm gallbladder wall. Possible small pericholecystic fluid. Correlate clinically for cholecystitis. Common bile duct: CBD 6 mm. Pancreas: Pancreas obscured. Kidneys: No hydronephrosis. Spleen: Unremarkable. Aorta: Unremarkable as visualized. Inferior vena cava: Unremarkable as visualized. IMPRESSION: Distended gallbladder. No definite shadowing cholelithiasis. Mildly prominent 4 mm gallbladder wall. Possible small pericholecystic fluid. Correlate clinically for cholecystitis. the gallbladder wall is somewhat edematous and the gallbladder is distended. The fat saturated images suggests some infiltration of the pericholecystic fat as well as a small amount of fluid adjacent to the tip of the liver. No filling defects to suggest gallstones are evident in the gallbladder lumen. However, there is a possible 8 mm filling defect in the gallbladder neck. In addition, there is a 7 mm diameter filling defect in the downstream common bile duct. The common bile duct measures 7 mm in diameter. There is no intrahepatic biliary ductal dilatation. The liver, pancreas, spleen, adrenals, kidneys are unremarkable. The prostate is enlarged. There are trace bilateral pleural effusions. Impression: Positive for choledocholithiasis. This results in mild biliary ductal dilatation. Suspect gallbladder neck stone. Mild gallbladder wall edema in some infiltration of the pericholecystic fat raises possibility of acute cholecystitis. Consider hepatobiliary nuclear scan for confirmation if there is high clinical suspicion. Evidence of trace free intraperitoneal fluid Trace bilateral pleural effusions Discharge planning repeat labs in a.m. Gallbladder micro noted. On p.o. antibiotics per infectious disease. Lopez Zuniga September 01, 2019 16:13
[2019-09-01 20:00] VITALS: BP 125/73
[2019-09-01] MEDS: Miralax 17gm pkt ORAL SCH (21:39)
[2019-09-02 04:00] VITALS: BP 157/63
[2019-09-02 08:00] VITALS: BP 140/78
[2019-09-02] MEDS: Levofloxacin 500mg tab ORAL SCH (08:27)
[2019-09-02] MEDS: Lactobacillus-GG tablet ORAL SCH (08:27)
[2019-09-02] MEDS: Montelukast 10mg tablet ORAL SCH (08:27)
[2019-09-02] MEDS: Docusate 100mg cap ORAL SCH (08:27)
[2019-09-02] MEDS: Ascorbic Acid 500mg tab ORAL SCH (08:27)
[2019-09-02] MEDS: SIMETHICONE 80 MG PO SCH ×2 (08:28→13:05)
[2019-09-02 08:51] LABS: HEMATOCRIT 34.8 % (42.0-52.0); HEMOGLOBIN 12.1 G/DL (14.2-18.0); MEAN CORPUSCULAR VOLUME 88 FL (80-99); PLATELET COUNT 624 K/UL (150-450); RED BLOOD COUNT 3.98 M/UL (4.70-6.10); RED CELL DISTRIBUTION WIDTH 11.9 % (11.6-14.8); WHITE BLOOD COUNT 12.7 K/UL (4.8-10.8)
--- NOTE | 2019-09-02 08:58 | General Progress Note ---
Assessment/Plan Problem List: (1) Choledocholithiasis ICD Codes: K80.50 - Calculus of bile duct without cholangitis or cholecystitis without obstruction SNOMED: 745891763 (2) Cholecystitis ICD Codes: K81.9 - Cholecystitis, unspecified SNOMED: 03307680 (3) UTI (urinary tract infection) ICD Codes: N39.0 - Urinary tract infection, site not specified SNOMED: 19020260 Qualifiers: Qualified Codes: N30.01 - Acute cystitis with hematuria Status: unchanged Assessment/Plan: s/p ERCP s/p cholecystectomy POD #7 elevated LFTS>>> improving d/w surg will monitor bowel regimen repeat labs will fu Subjective Allergies: Coded Allergies: No Known Allergies (Unverified , 08/20/19) Objective Last 24 Hour Vital Signs Date Time Temp Pulse Resp B/P (MAP) Pulse Ox O2 Delivery O2 Flow Rate FiO2 09/02/19 04:00 100.0 77 18 157/63 (94) 97 09/01/19 21:00 Room Air 09/01/19 20:00 99.5 74 19 125/73 (90) 98 09/01/19 16:00 98.2 76 19 120/67 (84) 98 09/01/19 12:00 98.3 94 19 126/76 (93) 97 09/01/19 09:28 Room Air Intake and Output 09/01/19 09/02/19 19:00 07:00 Intake Total 960 ml 420 ml Output Total 400 ml Balance 560 ml 420 ml Intake Oral 960 ml 420 ml Output Urine Total 400 ml # Voids 4 2 Laboratory Tests 09/01/19 09:30: White Blood Count 12.7H, Red Blood Count 4.35L, Hemoglobin 13.1L, Hematocrit 39.0L, Mean Corpuscular Volume 90, Mean Corpuscular Hemoglobin 30.1, Mean Corpuscular Hemoglobin Concent 33.6, Red Cell Distribution Width 11.4L, Platelet Count 346, Mean Platelet Volume 6.2L, Neutrophils (%) (Auto) 76.8H, Lymphocytes (%) (Auto) 14.4L, Monocytes (%) (Auto) 7.8, Eosinophils (%) (Auto) 0.4, Basophils (%) (Auto) 0.6 09/02/19 08:36: White Blood Count [Pending], Red Blood Count [Pending], Hemoglobin [Pending], Hematocrit [Pending], Mean Corpuscular Volume [Pending], Mean Corpuscular Hemoglobin [Pending], Mean Corpuscular Hemoglobin Concent [Pending], Red Cell Distribution Width [Pending], Platelet Count [Pending], Mean Platelet Volume [ Pending], Neutrophils (%) (Auto) [Pending], Lymphocytes (%) (Auto) [Pending], Monocytes (%) (Auto) [Pending], Eosinophils (%) (Auto) [Pending], Basophils (%) (Auto) [Pending] Height (Feet): 5 Height (Inches): 5.00 Weight (Pounds): 187 General Appearance: no apparent distress EENT: PERRL/EOMI Neck: supple Cardiovascular: normal rate Respiratory/Chest: decreased breath sounds Abdomen: normal bowel sounds, non tender, soft Extremities: non-tender Regino Lugo MD September 02, 2019 08:58
--- NOTE | 2019-09-02 09:37 | General Progress Note ---
Assessment/Plan Status: unchanged Assessment/Plan: cholecystitis gallstones abdominal pain s/p ERCP post op liban constipation fevers elevated CRP and WBC PLAN dc home if cleared by ID await further improvement in fevers/wbc prior to dc impression, plan, and exam edited and reviewed in detail care discussed with RN Subjective Allergies: Coded Allergies: No Known Allergies (Unverified , 08/20/19) Subjective care noted clinically well d/w surgery and cleared still with low grade fevers liver enzymes elevated Objective Last 24 Hour Vital Signs Date Time Temp Pulse Resp B/P (MAP) Pulse Ox O2 Delivery O2 Flow Rate FiO2 09/02/19 04:00 100.0 77 18 157/63 (94) 97 09/01/19 21:00 Room Air 09/01/19 20:00 99.5 74 19 125/73 (90) 98 09/01/19 16:00 98.2 76 19 120/67 (84) 98 09/01/19 12:00 98.3 94 19 126/76 (93) 97 Intake and Output 09/01/19 09/02/19 19:00 07:00 Intake Total 960 ml 420 ml Output Total 400 ml Balance 560 ml 420 ml Intake Oral 960 ml 420 ml Output Urine Total 400 ml # Voids 4 2 Laboratory Tests 09/02/19 08:36: White Blood Count 12.7H, Red Blood Count 3.98L, Hemoglobin 12.1L, Hematocrit 34.8L, Mean Corpuscular Volume 88, Mean Corpuscular Hemoglobin 30.3, Mean Corpuscular Hemoglobin Concent 34.7, Red Cell Distribution Width 11.9, Platelet Count 624#H, Mean Platelet Volume 4.2L, Neutrophils (%) (Auto) , Lymphocytes (% ) (Auto) , Monocytes (%) (Auto) , Eosinophils (%) (Auto) , Basophils (%) (Auto) , Neutrophils % (Manual) [Pending], Lymphocytes % (Manual) [Pending], Platelet Estimate [Pending], Platelet Morphology [Pending] Height (Feet): 5 Height (Inches): 5.00 Weight (Pounds): 187 Objective WDWN NAD clear breath sounds bilaterally without rhonchi or wheeze [id number] without MRG NABS tender RUQ mild no CCE nonfocal Aaron Cordova MD September 02, 2019 09:37
--- NOTE | 2019-09-02 10:42 | Infectious Diseases Prog Note ---
Assessment/Plan Assessment/Plan antibiotics : augmentin, levoquin A 1. acute gangrenous cholecystitis with E. coli, enterococcus, propionibacterium 2. Leukocytosis improving 3. Gallstones 4. fever improving P 1. continue augmentin, levoquin po 1 more day 2. will follow up cultures Subjective Constitutional: Denies: fever, chills Respiratory: Denies: shortness of breath, dry cough Gastrointestinal/Abdominal: Denies: nausea, vomiting, diarrhea Musculoskeletal: Reports: pain - decreased in abdomen Allergies: Coded Allergies: No Known Allergies (Unverified , 08/20/19) Objective Vital Signs Last 24 Hour Vital Signs Date Time Temp Pulse Resp B/P (MAP) Pulse Ox O2 Delivery O2 Flow Rate FiO2 09/02/19 09:00 Room Air 09/02/19 08:00 97.7 62 18 140/78 (98) 97 09/02/19 04:00 100.0 77 18 157/63 (94) 97 09/01/19 21:00 Room Air 09/01/19 20:00 99.5 74 19 125/73 (90) 98 09/01/19 16:00 98.2 76 19 120/67 (84) 98 09/01/19 12:00 98.3 94 19 126/76 (93) 97 Height (Feet): 5 Height (Inches): 5.00 Weight (Pounds): 187 Laboratory Tests Test 09/02/19 08:36 White Blood Count 12.7 K/UL (4.8-10.8) H Red Blood Count 3.98 M/UL (4.70-6.10) L Hemoglobin 12.1 G/DL (14.2-18.0) L Hematocrit 34.8 % (42.0-52.0) L Mean Corpuscular Volume 88 FL (80-99) Mean Corpuscular Hemoglobin 30.3 PG (27.0-31.0) Mean Corpuscular Hemoglobin Concent 34.7 G/DL (32.0-36.0) Red Cell Distribution Width 11.9 % (11.6-14.8) Platelet Count 624 K/UL (150-450) #H Mean Platelet Volume 4.2 FL (6.5-10.1) L Neutrophils (%) (Auto) % (45.0-75.0) Lymphocytes (%) (Auto) % (20.0-45.0) Monocytes (%) (Auto) % (1.0-10.0) Eosinophils (%) (Auto) % (0.0-3.0) Basophils (%) (Auto) % (0.0-2.0) Differential Total Cells Counted 100 Neutrophils % (Manual) 79 % (45-75) H Lymphocytes % (Manual) 13 % (20-45) L Monocytes % (Manual) 8 % (1-10) Eosinophils % (Manual) 0 % (0-3) Basophils % (Manual) 0 % (0-2) Band Neutrophils 0 % (0-8) Platelet Estimate Increased H Platelet Morphology Normal Red Blood Cell Morphology Normal Current Medications Medications (Trade) Dose Ordered Sig/Belen Route PRN Reason Start Time Stop Time Status Last Admin Dose Admin Acetaminophen (Tylenol) 650 mg Q4H PRN ORAL Mild Pain (Pain Scale 1-3) 08/21/19 02:45 09/20/19 02:44 09/01/19 16:03 Acetaminophen (Tylenol) 650 mg Q4H PRN ORAL FEVER 08/25/19 12:45 09/24/19 12:44 08/30/19 23:22 Al Hydroxide/Mg Hydroxide (Mylanta) 15 ml Q6H PRN ORAL DYSPEPSIA 08/25/19 12:45 09/24/19 12:44 Amoxicillin/ Clavulanate Potassium (Augmentin) 500 mg EVERY 8 HOURS ORAL 08/28/19 14:00 09/04/19 13:59 09/02/19 05:04 Ascorbic Acid (Vitamin C) 500 mg DAILY ORAL 08/31/19 09:00 09/30/19 08:59 09/02/19 08:27 Atorvastatin Calcium (Lipitor) 10 mg BEDTIME ORAL 08/21/19 21:00 11/19/19 20:59 09/01/19 21:40 Diphenhydramine HCl (Benadryl) 25 mg Q8H PRN ORAL Itching/Pruritis 08/25/19 12:45 09/24/19 12:44 Docusate Sodium (Colace) 100 mg TWICE A DAY ORAL 08/25/19 18:00 09/24/19 17:59 09/02/19 08:27 Lactobacillus Acidophilus (Culturelle) 1 tab DAILY ORAL 08/21/19 09:00 09/20/19 08:59 09/02/19 08:27 Levofloxacin (Levaquin) 500 mg DAILY ORAL 08/28/19 11:00 09/04/19 10:59 09/02/19 08:27 Magnesium Hydroxide (Mom) 30 ml BIDPRN PRN ORAL Constipation 08/25/19 12:45 09/24/19 12:44 08/27/19 06:14 Montelukast Sodium (Singulair) 10 mg DAILY ORAL 08/21/19 09:00 11/19/19 08:59 09/02/19 08:27 Multivitamins (Multivitamins) 1 tab DAILY ORAL 08/31/19 09:00 09/30/19 08:59 09/02/19 08:27 Ondansetron HCl (Zofran) 4 mg Q6H PRN IVP Nausea & Vomiting 08/25/19 12:45 09/24/19 12:44 08/27/19 09:10 Pantoprazole (Protonix) 40 mg DAILY ORAL 08/21/19 09:00 09/20/19 08:59 09/02/19 08:28 Polyethylene Glycol (Miralax) 17 gm BEDTIME ORAL 08/30/19 21:00 09/29/19 20:59 09/01/19 21:39 Sennosides (Senokot) 8.6 mg BIDPRN PRN ORAL Constipation 08/25/19 12:45 09/24/19 12:44 Simethicone (Mylicon) 160 mg TID PO 08/21/19 13:00 11/19/19 12:59 09/02/19 08:28 Armando Lopez MD September 02, 2019 10:42
[2019-09-02 12:00] VITALS: BP 122/71
--- NOTE | 2019-09-02 15:02 | Surgery Progress Note ---
Surgery Progress Note Subjective Procedure Performed lap liban Symptoms: improved Objective Last 24 Hour Vital Signs Date Time Temp Pulse Resp B/P (MAP) Pulse Ox O2 Delivery O2 Flow Rate FiO2 09/02/19 12:00 98.8 83 18 122/71 (88) 96 09/02/19 09:00 Room Air 09/02/19 08:00 97.7 62 18 140/78 (98) 97 09/02/19 04:00 100.0 77 18 157/63 (94) 97 09/01/19 21:00 Room Air 09/01/19 20:00 99.5 74 19 125/73 (90) 98 09/01/19 16:00 98.2 76 19 120/67 (84) 98 I&O Intake and Output 09/01/19 09/02/19 19:00 07:00 Intake Total 960 ml 420 ml Output Total 400 ml Balance 560 ml 420 ml Intake Oral 960 ml 420 ml Output Urine Total 400 ml # Voids 4 2 Dressing: dry Wound: clean Cardiovascular: RSR Respiratory: clear Abdomen: soft, non-tender, present bowel sounds Extremities: no cyanosis Laboratory Tests Test 09/02/19 08:36 White Blood Count 12.7 K/UL (4.8-10.8) H Red Blood Count 3.98 M/UL (4.70-6.10) L Hemoglobin 12.1 G/DL (14.2-18.0) L Hematocrit 34.8 % (42.0-52.0) L Mean Corpuscular Volume 88 FL (80-99) Mean Corpuscular Hemoglobin 30.3 PG (27.0-31.0) Mean Corpuscular Hemoglobin Concent 34.7 G/DL (32.0-36.0) Red Cell Distribution Width 11.9 % (11.6-14.8) Platelet Count 624 K/UL (150-450) #H Mean Platelet Volume 4.2 FL (6.5-10.1) L Neutrophils (%) (Auto) % (45.0-75.0) Lymphocytes (%) (Auto) % (20.0-45.0) Monocytes (%) (Auto) % (1.0-10.0) Eosinophils (%) (Auto) % (0.0-3.0) Basophils (%) (Auto) % (0.0-2.0) Differential Total Cells Counted 100 Neutrophils % (Manual) 79 % (45-75) H Lymphocytes % (Manual) 13 % (20-45) L Monocytes % (Manual) 8 % (1-10) Eosinophils % (Manual) 0 % (0-3) Basophils % (Manual) 0 % (0-2) Band Neutrophils 0 % (0-8) Platelet Estimate Increased H Platelet Morphology Normal Red Blood Cell Morphology Normal Assessment Post-op Diagnosis gangrenous necrotic cholecystectomy Plan Problems: (1) Cholecystitis Assessment & Plan: s/p lap liban 08/24 for infected gangrene gallbladder recovering on abx does not want to ambulate because of pain pain rx reviewed and will be given incentive spirometry lft's noted likely reactive from inflammation possible stone dislodged into duct? trend labs not ready for d/c will need oral abx on d/c pending labs rx written d/c planning Case discussed with GI MRCP reviewed with radiologist cbd stone stable afebrile, HD Stable labs noted npo iv fluids iv abx AM labs ERCP then cholecystectomy OR tomorrow thank you will follow with recs Liver: Unremarkable. Gallbladder: Distended gallbladder. No definite shadowing cholelithiasis. Mildly prominent 4 mm gallbladder wall. Possible small pericholecystic fluid. Correlate clinically for cholecystitis. Common bile duct: CBD 6 mm. Pancreas: Pancreas obscured. Kidneys: No hydronephrosis. Spleen: Unremarkable. Aorta: Unremarkable as visualized. Inferior vena cava: Unremarkable as visualized. IMPRESSION: Distended gallbladder. No definite shadowing cholelithiasis. Mildly prominent 4 mm gallbladder wall. Possible small pericholecystic fluid. Correlate clinically for cholecystitis. the gallbladder wall is somewhat edematous and the gallbladder is distended. The fat saturated images suggests some infiltration of the pericholecystic fat as well as a small amount of fluid adjacent to the tip of the liver. No filling defects to suggest gallstones are evident in the gallbladder lumen. However, there is a possible 8 mm filling defect in the gallbladder neck. In addition, there is a 7 mm diameter filling defect in the downstream common bile duct. The common bile duct measures 7 mm in diameter. There is no intrahepatic biliary ductal dilatation. The liver, pancreas, spleen, adrenals, kidneys are unremarkable. The prostate is enlarged. There are trace bilateral pleural effusions. Impression: Positive for choledocholithiasis. This results in mild biliary ductal dilatation. Suspect gallbladder neck stone. Mild gallbladder wall edema in some infiltration of the pericholecystic fat raises possibility of acute cholecystitis. Consider hepatobiliary nuclear scan for confirmation if there is high clinical suspicion. Evidence of trace free intraperitoneal fluid Trace bilateral pleural effusions Discharge planning repeat labs in a.m. Gallbladder micro noted. On p.o. antibiotics per infectious disease. Additional Comments d/c home today f/u next week rx written Lopez Zuniga September 02, 2019 15:02
--- NOTE | 2019-09-03 10:22 | Discharge Summary ---
Discharge Summary Discharge Summary _ DATE OF ADMISSION: 08/20/2019 DATE OF DISCHARGE: 09/02/2019 DISCHARGED BY: Dr. Cordova REASON FOR ADMISSION: 69 years old male with no significant past medical history, presented to emergency department complaining of severe ,8 out of 10 right upper quadrant abdominal pain with associated nausea and vomiting for the last 2 days. Pain reported as constant in nature , exacerbated with palpation in epigastric area and right upper quadrant of the abdomen . Patient denied fever and chills. Patient denied blood in the vomitus. Patient denied diarrhea or constipation. Patient denied black tarry stools. Patient reported no appetite. Patient reported having similar symptoms about a week ago , which were evaluated by his primary care provider , who told him that he had gallstones. Upon evaluation vital signs were stable. Laboratory work-up revealed leukocytosis , stable hemoglobin , hematocrit and platelet count. Urinalysis with evidence of pyuria ,many bacteria, +2 protein. Stable electrolytes and renal parameters. AST 95, ALT 132, total bilirubin 2.3, direct bilirubin 1.1. Lipase 82. Ultrasound of the abdomen demonstrated distended gallbladder. No definite shadowing cholelithiasis. Mildly prominent 4 mm gallbladder wall. Possible small pericholecystic fluid. Possible cholecystitis. In emergency department patient received 1 L of fluid, started on empiric antibiotic, received analgesic and antiemetic and admitted for further management. CONSULTANTS: ID specialist Dr. Lopez GI [facility] Lug[facility]SE: Patient admitted to medical surgical floor and started on empiric antibiotic. Patient was kept n.p.o. and hydrated with IV fluids. Pain management was addressed. Patient undergone MRI of the abdomen on 08/20 which revealed choledocholithiasis , resulting in the mild biliary ductal dilatation. Suspected gallbladder neck stone. Multiple small mild gallbladder wall edema and infiltration of pericholecystic fat raised possibility of acute cholecystitis. Patient undergone on 08/23 ERCP and sphincterotomy with stone removal . Patient tolerated procedure well. Patient subsequently undergone on 08/24 laparoscopic cholecystectomy with finding of gangrenous necrotic cholecystitis. At the time of this dictation pathology results still pending. Pain management was addressed. Supportive care provided. Antibiotic provided as per ID recommendation. Urine culture revealed mixed gram-positive organisms . Operative fluid culture revealed E. coli ESBL and Enterococcus faecalis along with Propionibacterium. Patient was on IV antibiotic , converted to oral and completed treatment of antibiotics while in the hospital . Leukocytosis trending down (upon discharge 12.7 from the highest of 19). Intermittent fevers resolved. LFT were closely monitored and trending down : upon discharge AST 45 ,ALT 68. Patient clinically stabilized and was ready for discharge home. FINAL DIAGNOSES: Acute gangrenous cholecystitis with E. coli, Enterococci, Propionibacterium Choledocholithiasis Cholecystitis Transaminitis -resolved Leukocytosis -improved Status post ERCP with sphincterotomy, stone removal 08/23 Status post laparoscopic cholecystectomy 08/24 DISCHARGE MEDICATIONS: See Medication Reconciliation list. DISCHARGE INSTRUCTIONS: Patient was discharged home. Follow-up with a primary care provider and surgeon in 1 week. I have been assigned to dictate discharge summary for this account. I was not involved in the patient's management. Elisa Delong NP September 03, 2019 10:22
== END 2019-09-02 15:20 | disposition home or self-care (01) | DRG 418 ==
LOC: EMR 17:35 → 3E 22:05 → EDBEDREQ 22:50
PROC: 0FC88ZZ Extirpation of Matter from Cystic Duct, Via Natural or Artificial Opening Endoscopic (ICD-10-PCS; principal; 2019-08-24 11:47)
PROC: 0FC98ZZ Extirpation of Matter from Common Bile Duct, Via Natural or Artificial Opening Endoscopic (ICD-10-PCS; principal; 2019-08-24 11:47)
PROC: 0FT44ZZ Resection of Gallbladder, Percutaneous Endoscopic Approach (ICD-10-PCS; 2019-08-25)
DX: K80.63 Calculus of gallbladder and bile duct with acute cholecystitis with obstruction (principal); N39.0 Urinary tract infection, site not specified; K82.A1 Gangrene of gallbladder in cholecystitis; B96.20 Unspecified Escherichia coli [E. coli] as the cause of diseases classified elsewhere; K59.00 Constipation, unspecified; D72.829 Elevated white blood cell count, unspecified; R50.9 Fever, unspecified
CPT/HCPCS: 36415; 71045; 74181; 74328; 76000; 76700; 80048; 80053; 81003; 82150; 82248; 83690; 85007; 85025; 85610; 85651; 85730; 86140; 86850; 86900; 86901; 87070; 87075; 87086; 87181; 87205; 93005; 94003; 94150; 96361; 96365; 96375; 96376; 99285; J2250; J2405; J2710; J7030